=== PATIENT | male | born 1950 | race Caucasian/White ===

== ENCOUNTER → 2018-02-04 | Outpatient (CLI) | payer MEDICARE, MEDICAID | LOC: M RAD 12:34 | DX: R91.8 Other nonspecific abnormal finding of lung field (principal); J44.9 Chronic obstructive pulmonary disease, unspecified | CPT/HCPCS: 71250 ==

== ENCOUNTER → 2018-05-21 | Outpatient (CLI) | payer MEDICARE, MEDICAID | LOC: M RAD 10:15 | DX: J44.9 Chronic obstructive pulmonary disease, unspecified (principal); R91.1 Solitary pulmonary nodule; K42.0 Umbilical hernia with obstruction, without gangrene; R91.8 Other nonspecific abnormal finding of lung field | CPT/HCPCS: 71250 ==

== ENCOUNTER 2020-12-06 13:30 | Inpatient (IN) | payer MEDICARE, MEDICAID ==
[~2020-12-06] VITALS: Ht 172.7 cm; Wt 105.7 kg
[2020-12-06 14:20] LABS: BASO % 0.3 % (0.0-1.0); HEMATOCRIT 52.7 % (42.0-52.0); HEMOGLOBIN 17.7 g/dl (13.5-17.5); LYMPH # 0.7 10^3/uL (1.5-5.0); LYMPH % 7.5 % (24.0-44.0); MEAN CORPUSCULAR HGB CONC 33.6 g/dl (32.0-36.5); MEAN CORPUSCULAR VOLUME 92.3 fl (80.0-96.0); MONO # 0.5 10^3/uL (0.0-0.8); NEUTROPHILS # 8.2 10^3/uL (1.5-8.5); NEUTROPHILS % 86.7 % (36.0-66.0); PLATELET COUNT, AUTOMATED 231 10^3/uL (150-450); RED BLOOD COUNT 5.71 10^6/uL (4.30-6.10); WHITE BLOOD COUNT 9.5 10^3/uL (4.0-10.0)
[2020-12-06 14:29] LABS: INR 1.87; PROTHROMBIN TIME 21.9 SECONDS (12.5-14.3)
[2020-12-06 14:30] LABS: PARTIAL THROMBOPLASTIN TIME 35.4 SECONDS (24.2-38.5)
--- NOTE | 2020-12-06 14:32 | REP ---
INDICATION: abdominal pain. COMPARISON: CT 05/21/2018. TECHNIQUE: Single portable AP view of the chest was performed. FINDINGS: There is a 5 cm mass in the left lower lung. There appear to be underlying interstitial fibrotic changes in the lung bases bilaterally. There is somewhat confluent parenchymal opacity in the right lung base which could represent an area of atelectasis or infiltrate. The heart does not appear to be significantly enlarged. There is calcification of the thoracic aorta. IMPRESSION: There is a 5 cm mass in the lower left lung. There may be some mild atelectasis or infiltrate in the right lung base. <Electronically signed by Ramses Veliz > 12/06/20 [id number]
[2020-12-06 14:47] LABS: ALT/SGPT 29 U/L (12-78); AMYLASE 30 U/L (25-115); BILIRUBIN,DIRECT 0.2 MG/DL (0.0-0.2); BILIRUBIN,TOTAL 0.8 MG/DL (0.2-1.0); BLOOD UREA NITROGEN 19 MG/DL (7-18); CALCIUM LEVEL 9.5 MG/DL (8.8-10.2); CARBON DIOXIDE LEVEL 25 MEQ/L (21-32); CHLORIDE LEVEL 103 MEQ/L (98-107); CK-MB VALUE MASS 1.1 NG/ML (<3.6); CPK CREATINE PHOSPHOKINASE 110 U/L (39-308); CREATININE FOR GFR 0.93 MG/DL (0.70-1.30); GLOMERULAR FILTRATION RATE > 60.0 (>42); GLUCOSE, FASTING 160 MG/DL (70-100); LIPASE 100 U/L (73-393); POTASSIUM SERUM 4.5 MEQ/L (3.5-5.1); SODIUM LEVEL 135 MEQ/L (136-145); TOTAL PROTEIN 7.4 GM/DL (6.4-8.2); TROPONIN I < 0.02 NG/ML (< 0.10)
[2020-12-06] MEDS ORDERED: AMLO1TAB24 PO (15:05)
[2020-12-06] MEDS ORDERED: MORPHINE 2 MG/ML 1ML VIAL (J2270) IV ONE (15:05)
[2020-12-06] MEDS ORDERED: LEVO25TA5 PO (15:05)
[2020-12-06] MEDS ORDERED: LISI10TA22 PO (15:05)
[2020-12-06] MEDS ORDERED: METO1TAB87 PO (15:05)
[2020-12-06] MEDS ORDERED: GABA-283 PO (15:05)
[2020-12-06] MEDS ORDERED: ROPI0.5T3 PO (15:05)
[2020-12-06] MEDS ORDERED: WARF4TAB51 PO (15:05)
[2020-12-06] MEDS ORDERED: ATOR1TAB19 PO (15:05)
[2020-12-06] MEDS ORDERED: MORPHINE 4 MG/ML 1ML VIAL/SYRINGE (J2270) IV ONE ×2 (16:00→18:00)
[2020-12-06] MEDS: GASTROGRAFIN SOLUTION 30ML PO SCH ×2 (16:10→16:53)
[2020-12-06] MEDS ORDERED: ISOVUE-370 76% 100ML VIAL As Ordered ONE (17:16)
--- NOTE | 2020-12-06 18:41 | REPVR ---
PROCEDURE INFORMATION: Exam: CT Chest With Contrast; Diagnostic Exam date and time: 12/06/2020 2:57 PM Age: 70 years old Clinical indication: Other: Eval for mass in lung TECHNIQUE: Imaging protocol: Diagnostic computed tomography of the chest with contrast. Radiation optimization: All CT scans at this facility use at least one of these dose optimization techniques: automated exposure control; mA and/or kV adjustment per patient size (includes targeted exams where dose is matched to clinical indication); or iterative reconstruction. Contrast material: ISOVUE 370; Contrast volume: 100 ml; Contrast route: INTRAVENOUS (IV); COMPARISON: CT Chest without contrast 05/21/2018 10:27 AM FINDINGS: Lungs: There is a calcified granuloma at the left lung base. There is a 5 cm x 3.8 cm oval mass at the left mid lung field which would be consistent with a malignant mass lesion. There is a 4 cm x 2.3 cm nodular area at the posterior right lung base which could be benign or malignant. There is severe changes of COPD with bullous emphysema and scarring throughout the lungs. Pleural spaces: There is no evidence of pneumothorax. Heart: The heart is normal in size and there is no pericardial effusion. Pulmonary arteries: There is opacification of the pulmonary arteries with no evidence of pulmonary embolus. Aorta: There is opacification of the aorta which appears intact. There is calcified atherosclerotic plaque formation along the aorta. Lymph nodes: There are calcified subcarinal and left hilar lymph nodes. Bones/joints: There is a lytic area at the posterior aspect of the right 9th rib which may be the result a nonunited fracture or a focal metastasis. Soft tissues: Right-sided vascular graft/right axilla and subcutaneous thorax. IMPRESSION: 1. Severe changes of COPD, emphysema, and scarring. 2. Possible lytic lesion of the posterior aspect of the right 9th rib. 3. 5 cm x 3.8 cm oval mass at the left mid lung field consistent with a malignant mass. Probable additional mass at the right lung base measuring 4 cm x 2.3 cm. Electronically signed by: Higinio Cha On 12/06/2020 18:41:44 PM
--- NOTE | 2020-12-06 19:17 | REPVR ---
PROCEDURE INFORMATION: Exam: CT Abdomen And Pelvis With Contrast Exam date and time: 12/06/2020 2:57 PM Age: 70 years old Clinical indication: Abdominal pain; Additional info: Gen abd pain TECHNIQUE: Imaging protocol: Computed tomography of the abdomen and pelvis with contrast. Radiation optimization: All CT scans at this facility use at least one of these dose optimization techniques: automated exposure control; mA and/or kV adjustment per patient size (includes targeted exams where dose is matched to clinical indication); or iterative reconstruction. Contrast material: ISOVUE 370; Contrast volume: 100 ml; Contrast route: INTRAVENOUS (IV); COMPARISON: No relevant prior studies available. FINDINGS: Liver: Small cyst left lobe of the liver. There is uniform enhancement throughout the liver. Gallbladder and bile ducts: Normal appearing gallbladder. Pancreas: Normal pancreas. Spleen: Normal spleen. Adrenal glands: Normal adrenal glands. Kidneys and ureters: Normal. No hydronephrosis. Stomach and bowel: There are surgical clips at the cecum. Large anterior abdominal wall hernia to the right of the umbilicus: To the right of the umbilicus is a very large/17 cm x 10 cm by 9 cm anterior right abdominal wall hernia. Within this very large hernia are multiple loops of small bowel and also a crescent of fluid to the right. There are several loops of small bowel that are decompressed in this hernia. However the hernia also contains a loop of small bowel demonstrating severe distension with the lumen measures 3.5 cm filled with fluid and a few bubbles of air. As the loops of small bowel traversed the defect there is severe narrowing and transition consistent with a incarcerated closed loop obstruction. The ileum distal to this hernia is completely decompressed. There are loops of small bowel proximal to this hernia demonstrating moderate distention and air-fluid levels. This severely distended loop of small bowel demonstrates thickening of the wall and surrounding edema/all consistent with ischemic changes from the obstruction. Hernia above the level of the umbilicus in the midline: There is a 10 cm anterior abdominal wall hernia above the level of the umbilicus which contains a mid section of transverse colon. As the colon traverses the anterior wall defect there is severe narrowing/transition zone and this may cause high-grade partial obstruction at this location. The section of herniated transverse colon demonstrates moderate gaseous distension and there is also prominent mesenteric fat in the hernia. Second higher hernia Intraperitoneal space: There is no evidence of pneumoperitoneum. Vasculature: There is opacification of the right graft which extends from the aorta it along the right thorax. This graft supplies a right to left femoral artery graft and all appears opacified. There is opacification of the aorta and right and left renal artery. 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 Lymph nodes: Unremarkable. No enlarged lymph nodes. Urinary bladder: Normal urinary bladder. Reproductive: Normal prostate. Bones/joints: Fracture and lesion of the posterior aspect of the right 9th rib. IMPRESSION: 1. 10 cm anterior abdominal wall hernia above the level of the umbilicus demonstrating a portion of the mid transverse colon and severe narrowing of the colon as it traverses into the hernia/partial obstruction. 2. 17 x 10 x 9 cm abdominal wall hernia to the right of the umbilicus and demonstrating nondistended loops of small bowel and a single loop of small bowel demonstrating severe distension with fluid and edema along the margins very suspicious for ischemic changes. This is all consistent with closed loop obstruction/incarcerated hernia. There is a small amount of free fluid along the right side of this large hernia abutting herniated mesentery and distended small bowel. The ileum distal to this is decompressed all consistent with a transition zone and complete obstruction. Hernia with incarceration and strangulation. Electronically signed by: Higinio Cha On 12/06/2020 19:16:45 PM
[2020-12-06] MEDS ORDERED: LABETALOL 100MG/20ML VIAL IV STA ×2 (19:48→22:43)
--- NOTE | 2020-12-06 19:49 | ECGEPIP ---
[facility] - ED Test Date: 2020-12-06 Pat Name: MIC MCNAMARA Department: Room: - Gender: Male Delivery Stock Clerk: tianna : [id number] Requested By: Mary Bedoya Order Number: [id number] Reading MD: Mary Bedoya Measurements Intervals [place] Rate: 69 P: 104 SD: 144 QRS: 64 QRSD: 76 T: 48 QT: 404 QTc: 432 Interpretive Statements Sinus rhythm with marked sinus arrhythmia Nonspecific ST abnormality Delayed R wave progression No prior ECG for comparison Electronically Signed on 12-06-2020 19:49:17 EDT by Mary Bedoya
[2020-12-06] MEDS ORDERED: HYDR-3713 PO (20:06)
[2020-12-06] MEDS ORDERED: ACETAMINOPHEN TAB 650MG DOSE (2X325MG) PO PRN (20:40)
[2020-12-06] MEDS ORDERED: MAALOX 30 ML SUSP *UDC PO PRN (20:40)
[2020-12-06] MEDS ORDERED: MOM 30ML SUSPENSION UDC PO PRN (20:40)
--- NOTE | 2020-12-06 21:54 | HPEPDOC ---
[facility] Medical History & Physical Date of Admission December 06, 2020 Date of Service: December 06, 2020 History and Physical CHIEF COMPLAINT: abdominal pain, distension HISTORY OF PRESENT ILLNESS: 70-year-old male with a past medical history of COPD on 3 L, per peripheral arterial disease, AAA status post pending,likely aortobifemoral bypass, hypertension, hypercholesterolemia , was large ventral hernias. He presented with sudden onset worsening abdominal pain this afternoon, worse in the right lateral area to the umbilicus with one episode of nonbloody, nonbilious vomiting. Patient denies any blood per rectum, chest pain, shortness of breath, fevers or chills. CT in the ED, showing concern for incarcerated and strangulated hernia, closed loop obstruction suspicion for ischemic bowel changes at the site of large ventral hernia at R lateral umbilical aspect. Superior to umbilicus, second hernia with transverse colon narrowing with partial obstruction Further, CT of the chest showing evidence for COPD, emphysematous changes as well as a 5 cm lung mass in the left mid field as well as at the right lung base measuring 4 cm in diameter, with a possible late lytic lesion of the right ninth rib. Patient noted to be hypertensive in the ER did not take his medication this morning. He is requiring 3 L of his baseline home oxygen to maintain saturation. Patient's hemoglobin is 17.7, without leukocytosis. No significant abnormalities. Lactic acid 2.0. Troponin less than 0.02. Lipase, amylase and liver enzymes are within normal limits. Dr. Mcduffie was consulted from the ER, reviewed CT images does not believe that to be a closed loop obstruction on revision of CT images, recommending conservative management for 24 hours with placement of NG tube. PAST MEDICAL HISTORY: COPD on 3L at home Hx of RLE DVT on warfarin Hypothyroidism RLS PAD s/p stenting AAA s/p stent Aortobifemoral bypass? HTN Hypercholesterolemia SOCIAL HISTORY: Former heavy smoker denies etoh use denies illcit drug use FAMILY HISTORY: reviewed with patient, did not reveal pertinent hx ALLERGIES: Please see below. REVIEW OF SYSTEMS: 10 point ROS completed, relevant findings are noted in HPI. HOME MEDICATIONS: Please see below. PHYSICAL EXAMINATION: VITAL SIGNS: please see below General: lying in bed, c/o abdominal pain, alert and oriented HEENT: PERRLA, EOMI, sclerae clear Neck: supple, normal ROM, no JVD Respiratory: rales in bilateral lung bases, air entry fair, limited by body positioning CVS: RRR, normal S1, S2, no murmurs Abdo: distended. large ventral hernia x 2, one superior to umblicus, one larger R lateral to umbilicu. Firm to palpation. No rigidity, guarding to indicate peritonitis Extremities: no edema MSK: R toe 1-5 amp. Chronic venous stasis changes. Pulses 1+ bilaterally Neuro: no focal neuro deficits, moving all 4 extremities, CN2-12 intact. Strength 5/5 in all 4 extremities. No nystagmus. Psych: calm, cooperative, AAO x 3 LABORATORY DATA: See below. IMAGING: CT abdo pelvis with IV contrast (12/06/20): 1. 10 cm anterior abdominal wall hernia above the level of the umbilicus demonstrating a portion of the mid transverse colon and severe narrowing of the colon as it traverses into the hernia/partial obstruction. 2. 17 x 10 x 9 cm abdominal wall hernia to the right of the umbilicus and demonstrating nondistended loops of small bowel and a single loop of small bowel demonstrating severe distension with fluid and edema along the margins very suspicious for ischemic changes. This is all consistent with closed loop obstruction/incarcerated hernia. There is a small amount of free fluid along the right side of this large hernia abutting herniated mesentery and distended small bowel. The ileum distal to this is decompressed all consistent with a transition zone and complete obstruction. Hernia with incarceration and strangulation. CT chest with IV contrast (12/06/20): 1. Severe changes of COPD, emphysema, and scarring. 2. Possible lytic lesion of the posterior aspect of the right 9th rib. 3. 5 cm x 3.8 cm oval mass at the left mid lung field consistent with a malignant mass. Probable additional mass at the right lung base measuring 4 cm x 2.3 cm. CXR (12/06/20): There is a 5 cm mass in the lower left lung. There may be some mild atelectasis or infiltrate in the right lung base. MICROBIOLOGY: Please see below. ASSESSMENT: 70-year-old male with a past medical history of COPD on 3 L, per pe ripheral arterial disease, AAA status post pending,likely aortobifemoral bypass, hypertension, hypercholesterolemia , was large ventral hernias. He presented with sudden onset worsening abdominal pain this afternoon, worse in the right lateral area to the umbilicus with one episode of nonbloody, nonbilious vomiting. CT imaging showing possibility of a closed loop incarcerated strength. Good hernia to the right lateral aspect of umbilicus with a partially of obstructed transverse colon and a hernia superior to the umbilicus. Patient found to have bilateral pulmonary masses with a lytic lesion on the rib consistent with likely malignancy. . PLAN: Abdominal pain 2/2 bowel obstruction with possible hernia incarceration/strangulation - vitals stable, hypertensive - no leukocytosis or fever. LA 2.0. - CT imaging reviewed as above - Dr. Galicia consulted, does not believe there to be closed loops obstruction with strangulation and ischemia at this time, recommending NGT placement for decompression - pain control with IV morphine - will hold anticoagulation on admission in event of emergent surgery - serial abdo exams - repeat KUB in AM HTN - s/p IV labetalol, monitor - takes amlodipine 5 mg, lisinopril 10 mg, metoprolol 12.5 mg daily Bilateral lung masses with likely mets to bone - CT imaging reviewed as above - patient informed of diagnosis, questions answered in detail - flight engineer helicopter is Dr. Atkins, consider consult for bronchoscopy/biopsy once medically stable PAD/AAA stenting - follows with vascular surgery at [facility] - on warfarin - well perfused distally on exam. Hx of RLE DVT - takes warfarin 2 mg daily - INR 1.87 on admission - will hold AC overnight in event of urgent surgery Hypothyroidism - takes levothyroxine 25 mcg Neuropathy - c/w gapapentin RLS - ropinirole DVT ppx: SCDs, TEDs. Holding chemoppx. CODE STATUS: DNR/DNI. MOLST form signed in ER, witnessed. I answered all questions in detail. kub Dispo: pending clinical improvement Vital Signs Vital Signs Date Time Temp Pulse Resp B/P (MAP) Pulse Ox O2 Delivery O2 Flow Rate FiO2 12/06/20 19:19 20 99 12/06/20 18:00 81 214/98 (136) Room Air 12/06/20 16:10 98.7 3.0 Laboratory Data Labs 24H Laboratory Tests 2 12/06/20 14:04: Immature Granulocyte % (Auto) 0.5, Neutrophils (%) (Auto) 86.7H, Lymphocytes (%) (Auto) 7.5L, Monocytes (%) (Auto) 5.0, Eosinophils (%) (Auto) 0.0, Basophils (%) (Auto) 0.3, Neutrophils # (Auto) 8.2, Lymphocytes # (Auto) 0.7L, Monocytes # (Auto) 0.5, Eosinophils # (Auto) 0.0, Basophils # (Auto) 0.0, Nucleated Red Blood Cells % (auto) 0.0, Prothrombin Time 21.9H, Prothromb Time International Ratio 1.87, Activated Partial Thromboplast Time 35.4, Anion Gap 7L, Glomerular Filtration Rate > 60.0, Lactic Acid Level 2.0, Calcium Level 9.5, Total Bilirubin 0.8, Direct Bilirubin 0.2, Aspartate Amino Transf (AST/SGOT) 18, Alanine Aminotransferase (ALT/SGPT) 29, Alkaline Phosphatase 88, Total Creatine Kinase 110, Creatine Kinase MB 1.1, Creatine Kinase MB Relative Index 1.00, Troponin I < 0.02, Total Protein 7.4, Albumin 4.0, Albumin/Globulin Ratio 1.2, Amylase Level 30, Lipase 100 12/06/20 21:26: CBC/BMP Laboratory Tests 12/06/20 14:04 Microbiology Microbiology 12/06/20 Blood Culture, Received Pending 12/06/20 Blood Culture, Received Pending Home Medications Scheduled Amlodipine Besylate (Amlodipine Besylate) 5 Mg Tablet, 5 MG PO DAILY Atorvastatin Calcium (Atorvastatin Calcium) 10 Mg Tablet, 10 MG PO QPM Gabapentin (Gabapentin) 400 Mg Capsule, 400 MG PO TID Levothyroxine Sodium (Levothyroxine Sodium) 25 Mcg Tablet, 25 MCG PO DAILY Lisinopril (Lisinopril) 10 Mg Tablet, 10 MG PO DAILY Metoprolol Tartrate (Metoprolol Tartrate) 25 Mg Tablet, 12.5 MG PO DAILY Ropinirole HCl (Ropinirole HCl) 0.5 Mg Tablet, 0.5 MG PO DAILY Warfarin Sodium (Warfarin Sodium) 2 Mg Tablet, 2 MG PO QPM Scheduled PRN Hydrocodone/Acetaminophen (Hydrocodone-Acetamin 5-325 mg) 1 Each Tablet, 1 TAB PO Q8H PRN for PAIN Allergies Coded Allergies: NSAIDS (Non-Steroidal Anti-Inflamma (Verified Allergy, Unknown, 12/06/20) A-FIB/CHADSVASC A-FIB History Current/History of A-Fib/PAF?: No Current PO Anticoag Therapy: Yes LOUISE RODRÍGUEZ MD December 06, 2020 21:53
[2020-12-06 22:13] LABS: RSV AMPLIFICATION NEGATIVE (NEGATIVE)
[2020-12-06] MEDS: LR 1,000 ML IV SCH (22:31)
[2020-12-06] MEDS: DOCUSATE SODIUM 100MG CAPSULE PO SCH (22:31)
[2020-12-06] MEDS: amLODIPine 5 MG TAB PO SCH (23:40)
[2020-12-07] VITALS (17 sets, daily range): BP systolic 148–190; BP diastolic 61–99
[2020-12-07] MEDS: LR 1,000 ML IV SCH ×3 (05:53→20:21)
[2020-12-07] MEDS: GABAPENTIN 400MG CAP PO SCH ×3 (08:30→20:22)
[2020-12-07] MEDS: DOCUSATE SODIUM 100MG CAPSULE PO SCH ×2 (08:30→20:22)
[2020-12-07] MEDS: amLODIPine 5 MG TAB PO SCH (08:31)
[2020-12-07] MEDS: LEVOTHYROXINE 25MCG TABLET (0.025MG) PO SCH (08:32)
[2020-12-07 08:39] LABS: HEMATOCRIT 51.3 % (42.0-52.0); HEMOGLOBIN 17.3 g/dl (13.5-17.5); MEAN CORPUSCULAR HEMOGLOBIN 31.1 pg (27.0-33.0); MEAN CORPUSCULAR HGB CONC 33.7 g/dl (32.0-36.5); MEAN CORPUSCULAR VOLUME 92.1 fl (80.0-96.0); PLATELET COUNT, AUTOMATED 219 10^3/uL (150-450); RED BLOOD COUNT 5.57 10^6/uL (4.30-6.10); WHITE BLOOD COUNT 12.5 10^3/uL (4.0-10.0)
[2020-12-07 09:11] LABS: ALBUMIN 3.6 GM/DL (3.2-5.2); ALT/SGPT 28 U/L (12-78); BILIRUBIN,TOTAL 0.7 MG/DL (0.2-1.0); BLOOD UREA NITROGEN 18 MG/DL (7-18); CALCIUM LEVEL 9.5 MG/DL (8.8-10.2); CARBON DIOXIDE LEVEL 28 MEQ/L (21-32); CHLORIDE LEVEL 99 MEQ/L (98-107); CREATININE FOR GFR 0.81 MG/DL (0.70-1.30); GLOMERULAR FILTRATION RATE > 60.0 (>42); GLUCOSE, FASTING 152 MG/DL (70-100); POTASSIUM SERUM 4.5 MEQ/L (3.5-5.1); SODIUM LEVEL 134 MEQ/L (136-145)
[2020-12-07] MEDS: rOPINIRole 0.25 MG TAB(REQUIP) PO SCH (10:22)
[2020-12-07] MEDS: METOPROLOL TART 12.5 MG PER 1/2 TAB PO SCH (10:23)
--- NOTE | 2020-12-07 10:23 | REP ---
INDICATION: obstruction. COMPARISON: None. FINDINGS: KUB shows the intestinal gas pattern to be nonspecific. There are multiple dilated gas-filled small bowel loops with a paucity if not absence of gas in the rectal region. The organ silhouettes insofar as delineated are unremarkable. There is no evidence of free intraperitoneal air. IMPRESSION: Plain film finding is consistent with the CT finding yesterday. All interested libertarian should review the CT report. <Electronically signed by Moisés Aj > 12/07/20 101
--- NOTE | 2020-12-07 13:12 | CR.PDOC ---
General Surgery Consultation Date of Consultation 12/07/20 History and Physical Gen. surgery. Dr. Galicia. HISTORY OF PRESENT ILLNESS: The patient is a 70-year-old male with history of large ventral hernias which he states he has had for the past few years. He states yesterday afternoon he developed worsening abdominal pain with 1 episode of vomiting. Evaluation in the ER included CT indicating SBO with large hernia. General Surgery consulted for further evaluation. The patient is currently resting comfortably in the emergency department on the stretcher. Denies nausea or vomiting. States abdominal pain is improved and controlled currently. Denies any flatus/ bowel movements. NG tube in place. 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 ALLERGIES: Please see below. Social history. Former heavy smoker. HOME MEDICATIONS: Please see below. REVIEW OF SYSTEMS: As noted in HPI otherwise 10 point review systems unremarkable. PHYSICAL EXAMINATION: VITALS SIGNS: Please see below. GENERAL APPEARANCE: Lying on stretcher in the emergency department, currently comfortable, no acute distress.. HEENT: Normocephalic, atraumatic. NG tube in place NECK: Supple, no thyromegaly. LUNGS: Bibasilar rales noted, few expiratory wheezes, decreased breath sounds bilaterally. HEART: Regular rate and rhythm ABDOMEN: Abdomen is distended, healed surgical scar noted, large ventral hernia noted, firm to palpation but currently no discomfort with palpation. No guarding or rebound. No grimacing with palpation. No peritoneal signs. EXTREMITIES: No edema identified. Chronic venous stasis changes LABORATORY DATA: Please see below. IMAGING STUDIES: CT abdomen/pelvis IMPRESSION: 1. 10 cm anterior abdominal wall hernia above the level of the umbilicus demonstrating a portion of the mid transverse colon and severe narrowing of the colon as it traverses into the hernia/partial obstruction. 2. 17 x 10 x 9 cm abdominal wall hernia to the right of the umbilicus and demonstrating nondistended loops of small bowel and a single loop of small bowel demonstrating severe distension with fluid and edema along the margins very suspicious for ischemic changes. This is all consistent with closed loop obstruction/incarcerated hernia. There is a small amount of free fluid along the right side of this large hernia abutting herniated mesentery and distended small bowel. The ileum distal to this is decompressed all consistent with a transition zone and complete obstruction. Hernia with incarceration and strangulation. Electronically signed by: Higinio Cha On 12/06/2020 19:16:45 PM IMPRESSION AND PLAN: Large hernia with SBO. The patient is reviewed and examined as per Dr. Galicia. Imaging reviewed as per Dr. Galicia. The patient is currently resting comfortably in bed. Continue with NPO Continue NG tube LIS to continue with decompression. Continue supportive care with pain control and IV fluids. Continue to closely monitor and continue with supportive care. No urgent plan for surgical intervention at this time. The patient would be high risk for surgical intervention considering multiple medical issues including severe emphysema/COPD, O2 dependent and lung masses. History of DVT. On Coumadin as outpatient, currently on hold. INR 1.87 on admission. Vital Signs Vital Signs Date Time Temp Pulse Resp B/P (MAP) Pulse Ox O2 Delivery O2 Flow Rate FiO2 12/07/20 11:45 61 16 190/92 (124) 96 Nasal Cannula 4.0 12/07/20 08:00 97.9 I&Os I&O- Last 24 Hours up to 6 AM 12/07/20 06:00 Intake Total 1000 ml Output Total 850 ml Balance 150 ml Laboratory Data Labs 24H Laboratory Tests 2 12/06/20 14:04: Immature Granulocyte % (Auto) 0.5, Neutrophils (%) (Auto) 86.7H, Lymphocytes (%) (Auto) 7.5L, Monocytes (%) (Auto) 5.0, Eosinophils (%) (Auto) 0.0, Basophils (%) (Auto) 0.3, Neutrophils # (Auto) 8.2, Lymphocytes # (Auto) 0.7L, Monocytes # (Auto) 0.5, Eosinophils # (Auto) 0.0, Basophils # (Auto) 0.0, Nucleated Red Blood Cells % (auto) 0.0, Prothrombin Time 21.9H, Prothromb Time International Ratio 1.87, Activated Partial Thromboplast Time 35.4, Anion Gap 7L, Glomerular Filtration Rate > 60.0, Lactic Acid Level 2.0, Calcium Level 9.5, Total Bilirubin 0.8, Direct Bilirubin 0.2, Aspartate Amino Transf (AST/SGOT) 18, Alanine Aminotransferase (ALT/SGPT) 29, Alkaline Phosphatase 88, Total Creatine Kinase 110, Creatine Kinase MB 1.1, Creatine Kinase MB Relative Index 1.00, Troponin I < 0.02, Total Protein 7.4, Albumin 4.0, Albumin/Globulin Ratio 1.2, A mylase Level 30, Lipase 100 12/06/20 21:26: Coronavirus (COVID-19)(PCR) NEGATIVE, Influenza Type A (RT-PCR) NEGATIVE, Influenza Type B (RT-PCR) NEGATIVE, Respiratory Syncytial Virus (PCR) NEGATIVE 12/07/20 08:20: Nucleated Red Blood Cells % (auto) 0.0, Anion Gap 7L, Glomerular Filtration Rate > 60.0, Calcium Level 9.5, Total Bilirubin 0.7, Aspartate Amino Transf (AST/SGOT) 16, Alanine Aminotransferase (ALT/SGPT) 28, Alkaline Phosphatase 79, Total Protein 7.0, Albumin 3.6, Albumin/Globulin Ratio 1.1 CBC/BMP Laboratory Tests 12/06/20 14:04 12/07/20 08:20 Microbiology Microbiology 12/06/20 Blood Culture, Received Pending 12/06/20 Blood Culture, Received Pending Home Medications Scheduled Amlodipine Besylate (Amlodipine Besylate) 5 Mg Tablet, 5 MG PO DAILY, (Reported) Atorvastatin Calcium (Atorvastatin Calcium) 10 Mg Tablet, 10 MG PO QPM, (Reported) Gabapentin (Gabapentin) 400 Mg Capsule, 400 MG PO TID, (Reported) Levothyroxine Sodium (Levothyroxine Sodium) 25 Mcg Tablet, 25 MCG PO DAILY, (Reported) Lisinopril (Lisinopril) 10 Mg Tablet, 10 MG PO DAILY, (Reported) Metoprolol Tartrate (Metoprolol Tartrate) 25 Mg Tablet, 12.5 MG PO DAILY, (Reported) Ropinirole HCl (Ropinirole HCl) 0.5 Mg Tablet, 0.5 MG PO DAILY, (Reported) Warfarin Sodium (Warfarin Sodium) 2 Mg Tablet, 2 MG PO QPM, (Reported) Scheduled PRN Hydrocodone/Acetaminophen (Hydrocodone-Acetamin 5-325 mg) 1 Each Tablet, 1 TAB PO Q8H PRN for PAIN, (Reported) Allergies Coded Allergies: NSAIDS (Non-Steroidal Anti-Inflamma (Verified Allergy, Unknown, 12/06/20) Shirlene Lopez December 07, 2020 13:12
[2020-12-07] MEDS ORDERED: hydrALAZINE 20MG/ML 1ML VIAL (J0360 PER 20MG) IV PRN (14:10)
[2020-12-07] MEDS: MORPHINE 2 MG/ML 1ML VIAL (J2270) IV PRN ×3 (14:55→20:22)
[2020-12-07] MEDS: ATORVASTATIN 10 MG TAB PO SCH (17:16)
--- NOTE | 2020-12-07 18:29 | IPNPDOC ---
Date Seen The patient was seen on 12/07/20. Progress Note SUBJECTIVE: BP uncontrolled over evening. No acute complaints on exam, denied abdominal pain. Denies n/v/d, fevers, chills, shortness of breath. OBJECTIVE: PHYSICAL EXAMINATION: VITAL SIGNS: please see below General: lying in bed, NAD HEENT: PERRLA, EOMI, sclerae clear, NG tube in place to IS, NC in place Neck: supple, normal ROM, no JVD Respiratory: rales in bilateral lung bases, air entry fair, limited by body positioning CVS: RRR, normal S1, S2, no murmurs Abdo: distended abdomen, tympanic. large ventral hernia x 2, one superior to umblicus, one larger R lateral to umbilicu. Firm to palpation. No rigidity, guarding. Nontender Extremities: no edema MSK: R toe 1-5 amp. Chronic venous stasis changes. Pulses 1+ bilaterally Neuro: no focal neuro deficits, moving all 4 extremities, CN2-12 intact. Strength 5/5 in all 4 extremities. No nystagmus. Psych: calm, cooperative, AAO x 3 LABORATORY DATA: See below. MICRO: BCx x 2 sets NG IMAGING: KUB 12/07/20: KUB shows the intestinal gas pattern to be nonspecific. There are multiple dilated gas-filled small bowel loops with a paucity if not absence of gas in the rectal region. The organ silhouettes insofar as delineated are unremarkable. There is no evidence of free intraperitoneal air. CT abdo pelvis with IV contrast (12/06/20): 1. 10 cm anterior abdominal wall hernia above the level of the umbilicus demonstrating a portion of the mid transverse colon and severe narrowing of the colon as it traverses into the hernia/partial obstruction. 2. 17 x 10 x 9 cm abdominal wall hernia to the right of the umbilicus and demonstrating nondistended loops of small bowel and a single loop of small bowel demonstrating severe distension with fluid and edema along the margins very suspicious for ischemic changes. This is all consistent with closed loop obstruction/incarcerated hernia. There is a small amount of free fluid along the right side of this large hernia abutting herniated mesentery and distended small bowel. The ileum distal to this is decompressed all consistent with a transition zone and complete obstruction. Hernia with incarceration and strangulation. CT chest with IV contrast (12/06/20): 1. Severe changes of COPD, emphysema, and scarring. 2. Possible lytic lesion of the posterior aspect of the right 9th rib. 3. 5 cm x 3.8 cm oval mass at the left mid lung field consistent with a malignant mass. Probable additional mass at the right lung base measuring 4 cm x 2.3 cm. CXR (12/06/20): There is a 5 cm mass in the lower left lung. There may be some mild atelectasis or infiltrate in the right lung base. MICROBIOLOGY: Please see below. ASSESSMENT: 70-year-old male with a past medical history of COPD on 3 L, peripheral arterial disease, AAA s/p stenting/ aortobifemoral bypass, hypert ension, hypercholesterolemia , hx large ventral hernias admitted for large hernia with SBO, bilateral lung masses. PLAN: Hernia with SBO -Denies passing gas or BM overnight, abdominal pain for me -KUB above from this AM -Abd remains diffusely distended, tympanic but nontender on exam- tender intermittently; however. -NPO, NG to LIS, supportive care with pain meds, IVF -At this time would be high risk for surgery with underlying lung issues (advanced emphysema, b/l lung masses, O2 dependent) so plan is to see how conservative tx and waiting does. -Surgery following closely Bilateral lung masses with likely mets to bone -CT imaging reviewed as above -Patient informed of diagnosis, questions answered in detail by admitting provider -Discussed case with Dr. Atkins, whose office has seen patient him past for other issues. Will consult and see on 12/08/20 to discuss further, as he has not discussed these findings with pulmonary or oncology yet. HTN, uncontrolled -180-190's during the day -Added hydralazine PRN, as patient is NPO to all PO medications from home ( amlodipine 5 mg, lisinopril 10 mg, metoprolol 12.5 mg) PAD/AAA stenting -Follows with vascular surgery at [facility] -On warfarin, which has been held due to possible surgery -On lovenox renally dosed BID Hx of RLE DVT - takes warfarin 2 mg daily - INR 1.87 on admission - Holding warfarin, starting lovenox BID Hx of COLIN -Unknown if uses home CPAP -Per pulm, noncompliant Hypothyroidism - takes levothyroxine 25 mcg Neuropathy -Gapapentin when taking PO RLS - ropinirole when taking PO Obesity -BMI 34, complicates care GI px -PPI DVT ppx -Lovenox BID DISPOSITION: Surgery, pulmonary consulted. Plan is hopefully discharge home when medically improved. VS, I&O, 24H, Fishbone Vital Signs/I&O Vital Signs Date Time Temp Pulse Resp B/P (MAP) Pulse Ox O2 Delivery O2 Flow Rate FiO2 12/07/20 17:23 18 Nasal Cannula 4.0 12/07/20 13:00 96.0 84 149/69 (95) 98 I&O- Last 24 Hours up to 6 AM 12/07/20 06:00 Intake Total 1000 ml Output Total 850 ml Balance 150 ml Laboratory Data 24H LABS Laboratory Tests 2 12/06/20 21:26: Coronavirus (COVID-19)(PCR) NEGATIVE, Influenza Type A (RT-PCR) NEGATIVE, Influenza Type B (RT-PCR) NEGATIVE, Respiratory Syncytial Virus (PCR) NEGATIVE 12/07/20 08:20: Nucleated Red Blood Cells % (auto) 0.0, Anion Gap 7L, Glomerular Filtration Rate > 60.0, Calcium Level 9.5, Total Bilirubin 0.7, Aspartate Amino Transf (AST/SGOT) 16, Alanine Aminotransferase (ALT/SGPT) 28, Alkaline Phosphatase 79, Total Protein 7.0, Albumin 3.6, Albumin/Globulin Ratio 1.1 CBC/BMP Laboratory Tests 12/07/20 08:20 Microbiology Microbiology 12/06/20 Blood Culture - Preliminary, Resulted No growth after 24 hours . All specim... 12/06/20 Blood Culture - Preliminary, Resulted No growth after 24 hours . All specim... Savana Portillo MD December 07, 2020 18:29
[2020-12-07] MEDS: PANTOPRAZOLE 40MG VIAL (C9113 PER 1) IV SCH (20:21)
[2020-12-07] MEDS: ENOXAPARIN 100MG/1ML SYRINGE (J1650 PER 10MG) SC SCH (20:21)
[2020-12-08] VITALS (25 sets, daily range): BP systolic 111–146; BP diastolic 52–75
[2020-12-08] MEDS: MORPHINE 2 MG/ML 1ML VIAL (J2270) IV PRN ×4 (00:38→11:06)
[2020-12-08] MEDS: LR 1,000 ML IV SCH ×2 (02:45→11:06)
[2020-12-08 06:21] LABS: HEMATOCRIT 49.2 % (42.0-52.0); HEMOGLOBIN 16.4 g/dl (13.5-17.5); MEAN CORPUSCULAR HEMOGLOBIN 31.2 pg (27.0-33.0); MEAN CORPUSCULAR HGB CONC 33.3 g/dl (32.0-36.5); MEAN CORPUSCULAR VOLUME 93.7 fl (80.0-96.0); PLATELET COUNT, AUTOMATED 205 10^3/uL (150-450); RED BLOOD COUNT 5.25 10^6/uL (4.30-6.10); WHITE BLOOD COUNT 14.5 10^3/uL (4.0-10.0)
[2020-12-08 06:31] LABS: INR 1.62; PROTHROMBIN TIME 19.6 SECONDS (12.5-14.3)
[2020-12-08 06:47] LABS: ALT/SGPT 21 U/L (12-78); BLOOD UREA NITROGEN 14 MG/DL (7-18); CALCIUM LEVEL 8.8 MG/DL (8.8-10.2); CARBON DIOXIDE LEVEL 27 MEQ/L (21-32); CHLORIDE LEVEL 102 MEQ/L (98-107); CREATININE FOR GFR 0.82 MG/DL (0.70-1.30); GLOMERULAR FILTRATION RATE > 60.0 (>42); GLUCOSE, FASTING 142 MG/DL (70-100); POTASSIUM SERUM 4.3 MEQ/L (3.5-5.1); SODIUM LEVEL 136 MEQ/L (136-145); TOTAL PROTEIN 6.5 GM/DL (6.4-8.2)
--- NOTE | 2020-12-08 08:30 | IPNPDOC ---
Text Note Date of Service The patient was seen on 12/08/20. NOTE Gen. surgery. Dr. Galicia. The patient is a 70-year-old male with history of large ventral hernias admitted 12/07/20 for SBO with large hernia. This morning the patient states he feels about the same as yesterday. NG tube in place. Denies nausea. Denies flatus. Has not had any bowel movements. Abdomen is still distended, still reports tenderness around the area of the large hernia. Afebrile. VSS. 93% 4 L nasal cannula. Currently resting in bed, no acute distress. NG tube in place Bibasilar rales noted, few expiratory wheezes, decreased breath sounds bilaterally. HEART: S1 and S2 Regular rate and rhythm ABDOMEN: Abdomen is still distended, about the same as yesterday in the area of the hernia, there is some decreased distention in the upper abdomen, healed midline surgical scar noted. Large ventral hernia noted, firm to palpation with erythema of the skin overlying the area, tenderness in this area with palpation. No guarding or rebound. EXTREMITIES: No edema. WBC 14.5, slightly increased from 12.5 on admission. NG tube output 1400 mL yesterday. IMPRESSION AND PLAN: Large hernia with SBO. The patient is reviewed and examined as per Dr. Bonner this AM. Continue with NPO Continue NG tube LIS Continue supportive care with pain control and IV fluids. Dr Bonner to review imaging further for any additional recommendations or need for surgical intervention at this time. Will discuss further with the pt after review. The patient would be high risk for surgical intervention considering multiple medical issues including severe emphysema/COPD, O2 dependent and lung masses. History of DVT. On Coumadin as outpatient, currently on hold. INR 1.62 this AM. VS,Fishbone, I+O VS, Fishbone, I+O Laboratory Tests 12/08/20 05:50 Vital Signs Date Time Temp Pulse Resp B/P (MAP) Pulse Ox O2 Delivery O2 Flow Rate FiO2 12/08/20 07:28 97.4 89 18 145/67 (93) 93 Nasal Cannula 4.0 I&O- Last 24 Hours up to 6 AM 12/08/20 06:00 Intake Total 4000 ml Output Total 1400 ml Balance 2600 ml Shirlene Lopez December 08, 2020 08:30 IRASEMA BONNER MD December 29, 2020 04:57
[2020-12-08] MEDS: DOCUSATE SODIUM 100MG CAPSULE PO SCH (08:44)
[2020-12-08] MEDS: GABAPENTIN 400MG CAP PO SCH ×2 (08:44→16:00)
[2020-12-08] MEDS: amLODIPine 5 MG TAB PO SCH (08:45)
[2020-12-08] MEDS: LEVOTHYROXINE 25MCG TABLET (0.025MG) PO SCH (08:45)
[2020-12-08] MEDS: METOPROLOL TART 12.5 MG PER 1/2 TAB PO SCH (08:45)
[2020-12-08] MEDS: ENOXAPARIN 100MG/1ML SYRINGE (J1650 PER 10MG) SC SCH (08:46)
[2020-12-08] MEDS: rOPINIRole 0.25 MG TAB(REQUIP) PO SCH (09:33)
[2020-12-08] MEDS: IPRATROPIUM 0.5MG/ALBUTEROL 2.5MG INH SOL UD 3ML (DUONEB) NEB SCH ×3 (10:59→17:30)
[2020-12-08 11:00] LABS: ABG BASE EXCESS 1.9 (-2.0-2.0); ABG HCO3 25.9 MEQ/L (22.0-26.0); ABG O2 SATURATION 93.4 % (95.0-99.0); ABG PARTIAL PRESSURE CO2 38.4 mmHg (35.0-45.0); ABG PARTIAL PRESSURE O2 63.3 mmHg (75.0-100.0); ABG pH (ARTERIAL) 7.446 UNITS (7.350-7.450)
--- NOTE | 2020-12-08 11:03 | IPN ---
PROGRESS NOTE DATE: 12/08/2020 SUBJECTIVE: I was asked to see Darrius Felton. He is well-known to me from the outpatient setting. In essence, this is a 70-year-old gentleman with longstanding previous tobacco use. He has very significant ongoing emphysema with a diffusion capacity of about 30%, is chronically on oxygen. He does have underlying obstructive lung disease with an FEV1 in and around 1.56 liters, about 53% of predicted. He is generally noncompliant with his inhaler therapy as well as his home oxygen which he has been on for years. He is known to have significantly abnormal CT scan not only from his emphysema but has left lower lobe granuloma. In 2018 had a very significant left hilar abnormality that turned out to be inflammatory as it completely cleared. He is admitted now for an incarcerated ventral hernia and was found to have an approximately 5 cm lung mass in the left, clearly new from his scans from 2018. I have no access to imaging done last year at [facility] that was reportedly done. He is also known to have very significant underlying vascular and cardiac disease. His main complaint currently is related to his ventral hernia, he is having significant pain. I am told he is scheduled for surgical repair later today. MEDICATIONS: His medication list has been reviewed. PHYSICAL EXAMINATION: VITAL SIGNS: T-max of 97.9, blood pressure 120s/140s, heart rate generally in the 80s to 90s, respiratory rate 18 to 20 without accessory muscle use. He remains on 4 liters nasal cannula. His current saturation is 91 to 93%. HEENT: Normocephalic, atraumatic. Nasal cannula oxygen placed as well as a nasogastric tube. Pupils reactive, sclera clear. Trachea is in the midline. Membranes are moist. CHEST: Markedly diminished but symmetric expansion, diffusely hyperresonant to percussion. There are some faint dependent crackles that improve with deep inspiration but no other focal adventitious breath sounds are identified. His right axillary bifemoral graft is palpable in the right mid axillary line. CARDIAC: Distant but generally regular. Peripheral pulses are diminished but palpable. No obvious edema. ABDOMEN: Very large ventral hernia. Bowel sounds are hypoactive. EXTREMITIES: No cyanosis or clubbing. NEUROLOGIC: He is awake, alert and appropriate. PSYCH: Normal mood and affect. LABORATORY DATA: Most recent laboratories shows a white blood cell count of 14.5, hemoglobin 16.4, platelet count 205,000. Sodium 136, potassium 4.3, chloride 102, CO2 27, BUN 14, creatinine 0.82. No blood gas but will obtain one as a baseline for his surgery today. CT scans have all been reviewed and I cannot at all disagree with the dictated report regarding an approximately 5 cm left upper lobe mass, clearly new from his last scan in 2018. IMPRESSION: 1. Chronic hypoxemic respiratory failure. 2. Emphysema as the basis for the above. 3. At least moderate obstructive lung disease. 4. Abnormal CT scan with a sizable left upper lobe mass likely primary bronchogenic carcinoma. 5. Profound vascular disease. 6. Coronary artery disease. RECOMMENDATIONS: A very lengthy discussion was had with the patient concerning the above. He is concerned about his risks for operative repair of his hernia. Certainly, he does have advanced obstructive lung disease but his airway function should not preclude his postop management. Certainly, his oxygenation status presents an issue but he has not had significant difficulties with wheezing, on and off steroids or frequent exacerbations of his obstructive lung disease. She he opt for surgical intervention, certainly we will do our best to extubate him as soon as possible. The other glaring issue is his lung mass. Certainly, this is going to prove to be bronchogenic carcinoma. He is certainly not an operative candidate for resection and I doubt chemotherapy would be able to play a role but certainly we can consider evaluation for radiation therapy. I did discuss with him the risks for pneumothorax regarding needle biopsy but certainly getting his incarcerated dealt with first takes precedence. He is agreement with that. For now, we will continue his current respiratory medications while he is here in the hospital. Further recommendations will be made in the progress records as new information becomes available.
[2020-12-08] MEDS ORDERED: LIDOCAINE 1% SDV 30ML VIAL As Ordered ONE (14:13)
[2020-12-08] MEDS ORDERED: BUPIVACAINE HCL 0.25% 30ML VIAL As Ordered ONE (14:13)
--- NOTE | 2020-12-08 14:48 | IPNPDOC ---
Date Seen The patient was seen on 12/08/20. Progress Note SUBJECTIVE: Redness of skin today and increased pain over right side of hernia. Discussion had with patient about need for surgical intervention, remains high risk. Pulmonary involved and has evaluated. D/w Dr. Mike. Possible OR today. Currently denies n/v/d, fevers, chills, shortness of breath. OBJECTIVE: PHYSICAL EXAMINATION: VITAL SIGNS: please see below General: lying in bed, NAD HEENT: PERRLA, EOMI, sclerae clear, NG tube in place to IS, NC in place Neck: supple, normal ROM, no JVD Respiratory: crackles in bilateral lung bases, air entry fair, limited by body positioning CVS: RRR, normal S1, S2, no murmurs Abdo: distended abdomen, tympanic. large ventral hernia x 2, one superior to umblicus, one larger R lateral to umbilicus. Firm to palpation. No rigidity, guarding. redness around entire ventral hernia appeared since admission. Tenderness to right side of ventral hernia with palpation Extremities: no edema MSK: R toe 1-5 amp. Chronic venous stasis changes. Pulses 1+ bilaterally Neuro: no focal neuro deficits, moving all 4 extremities, CN2-12 intact. Strength 5/5 in all 4 extremities. No nystagmus. Psych: calm, cooperative, AAO x 3 LABORATORY DATA: See below. MICRO: BCx x 2 sets NG IMAGING: KUB 12/07/20: KUB shows the intestinal gas pattern to be nonspecific. There are multiple dilated gas-filled small bowel loops with a paucity if not absence of gas in the rectal region. The organ silhouettes insofar as delineated are unremarkable. There is no evidence of free intraperitoneal air. CT abd/ pelvis with IV contrast (12/06/20): 1. 10 cm anterior abdominal wall hernia above the level of the umbilicus demonstrating a portion of the mid transverse colon and severe narrowing of the colon as it traverses into the hernia/partial obstruction. 2. 17 x 10 x 9 cm abdominal wall hernia to the right of the umbilicus and demonstrating nondistended loops of small bowel and a single loop of small bowel demonstrating severe distension with fluid and edema along the margins very suspicious for ischemic changes. This is all consistent with closed loop obstruction/incarcerated hernia. There is a small amount of free fluid along the right side of this large hernia abutting herniated mesentery and distended small bowel. The ileum distal to this is decompressed all consistent with a transition zone and complete obstruction. Hernia with incarceration and strangulation. CT chest with IV contrast (12/06/20): 1. Severe changes of COPD, emphysema, and scarring. 2. Possible lytic lesion of the posterior aspect of the right 9th rib. 3. 5 cm x 3.8 cm oval mass at the left mid lung field consistent with a malignant mass. Probable additional mass at the right lung base measuring 4 cm x 2.3 cm. CXR (12/06/20): There is a 5 cm mass in the lower left lung. There may be some mild atelectasis or infiltrate in the right lung base. ASSESSMENT: 70-year-old male with a past medical history of COPD on 3 L, peripheral arterial disease, AAA s/p stenting/ aortobifemoral bypass, hypertension, hypercholesterolemia , hx large ventral hernias admitted for large hernia with SBO, bilateral lung masses. PLAN: Strangulated abdominal hernia with SBO -WBC incr to 14.5, increased redness around ventral hernia, incr ventral hernia pain -Denies passing gas or BM overnight, 1400 mL out of NG tube overnight -Abd remains diffusely distended -D/w surgery (Dr. Mike) and pulmonary (Dr. Atkins). Per surgery, will need surgical intervention but remains high risk for surgery with underlying lung issues (advanced emphysema, b/l lung masses, O2 dependent). -NPO, NG to LIS, supportive care with pain meds, IVF Bilateral lung masses with likely mets to bone, likely bronchogenic carcinoma -Hx of smoking -CT imaging reviewed as above -Pulmonary was consulted and reviewed results with patient in great detail today. Please refer to his note. -will need additional f/u as o/p, possibly radiation, bx. HTN -better controlled today -C/w hydralazine PRN, as patient is NPO to all PO medications from home ( amlodipine 5 mg, lisinopril 10 mg, metoprolol 12.5 mg) PAD/AAA stenting -Follows with vascular surgery at [facility] -Warfarin has been held due to possible surgery -Holding lovenox renally dosed BID Hx of RLE DVT - takes warfarin 2 mg daily - INR 1.6 today - Holding warfarin, lovenox BID Hx of COLIN -Unknown if uses home CPAP -Per pulm, noncompliant Hypothyroidism - takes levothyroxine 25 mcg Neuropathy -Gapapentin when taking PO RLS - ropinirole when taking PO Obesity -BMI 34, complicates care GI px -PPI DVT ppx -Lovenox BID - held for surgery . SCD, teds DISPOSITION: Surgery, pulmonary consulted. OR likely today. VS, I&O, 24H, Fishbone Vital Signs/I&O Vital Signs Date Time Temp Pulse Resp B/P (MAP) Pulse Ox O2 Delivery O2 Flow Rate FiO2 12/08/20 12:00 97.3 74 18 125/58 (80) 92 Nasal Cannula 4.0 I&O- Last 24 Hours up to 6 AM 12/08/20 06:00 Intake Total 4000 ml Output Total 1400 ml Balance 2600 ml Laboratory Data 24H LABS Laboratory Tests 2 12/08/20 05:50: Nucleated Red Blood Cells % (auto) 0.0, Prothrombin Time 19.6H, Prothromb Time International Ratio 1.62, Anion Gap 7L, Glomerular Filtration Rate > 60.0, Calcium Level 8.8, Total Bilirubin 1.0, Aspartate Amino Transf (AST/SGOT) 19, Alanine Aminotransferase (ALT/SGPT) 21, Alkaline Phosphatase 69, Total Protein 6.5, Albumin 3.0L, Albumin/Globulin Ratio 0.9 12/08/20 08:23: Lactic Acid Level 1.5 12/08/20 10:49: Blood Gas Bicarbonate Standard 26.0, Arterial Blood pH 7.446, Arterial Blood Partial Pressure CO2 38.4, Arterial Blood Partial Pressure O2 63.3L, Arterial Blood Total CO2 27.0, Arterial Blood HCO3 25.9, Arterial Blood Base Excess 1.9, Arterial Blood Oxygen Saturation 93.4L CBC/BMP Laboratory Tests 12/08/20 05:50 Microbiology Microbiology 12/06/20 Blood Culture - Preliminary, Resulted No Growth after 48 hours. All Specime... 12/06/20 Blood Culture - Preliminary, Resulted No Growth after 48 hours. All Specime... Savana Portillo MD December 08, 2020 14:48
[2020-12-08] MEDS ORDERED: ZOSYN 3.375GM VIAL (J2543) As Ordered ONE (17:34)
[2020-12-08] MEDS ORDERED: ALBUTEROL SULFATE 2.5 MG/0.5 ML INH NEB SOLN INH SCH (17:35)
[2020-12-08] MEDS ORDERED: BUPIVACAINE LIPOSOME/PF 1.3% 20ML VIAL (13.3MG/ML)(EXPAREL)(C9290 PER1MG) As Ordered ONE (18:07)
[2020-12-08] MEDS ORDERED: LIDOCAINE 2% 100MG/5ML SDV (FOR ANES.) As Ordered ONE (20:34)
[2020-12-08] MEDS ORDERED: HYDROmorphone HCL 2 MG/ML 1ML VIAL (J1170) As Ordered ONE (20:34)
[2020-12-08] MEDS ORDERED: propofoL 200 MG/20 ML VIAL As Ordered ONE (20:34)
[2020-12-08] MEDS ORDERED: fentaNYL 100 MCG/2 ML INJECTION (J3010) As Ordered ONE (20:34)
[2020-12-08] MEDS ORDERED: PHENYLephrine 500MCG 5ML (100MCG/ML) SYRINGE As Ordered ONE (20:34)
[2020-12-08] MEDS ORDERED: CALCIUM CHLORIDE 10% 1 GM/10 ML SYR As Ordered ONE (20:34)
[2020-12-08] MEDS ORDERED: ROCURONIUM BROMIDE 50 MG/5 ML VIAL As Ordered ONE (20:34)
[2020-12-08] MEDS ORDERED: ACETAMINOPHEN 1000MG 100ML IV BTL (OFIRMEV) (J0131 PER 10MG) As Ordered ONE (20:34)
[2020-12-08] MEDS ORDERED: SUCCINYLCHOLINE 100 MG/5 ML SYRINGE (J0330) As Ordered ONE (20:34)
[2020-12-08] MEDS ORDERED: dexameTHASONE 4 MG/ML 1ML VIAL (J1100 PER 1MG) As Ordered ONE (20:34)
[2020-12-08] MEDS ORDERED: SUGAMMADEX SODIUM 500 MG/5 ML VIAL (BRIDION) As Ordered ONE (20:34)
[2020-12-08] MEDS ORDERED: MIDAZOLAM INJ 2MG/2ML VIAL (J2250 PER 1MG) As Ordered ONE (20:34)
[2020-12-08] MEDS ORDERED: ONDANSETRON 4MG/2ML VIAL As Ordered ONE (20:34)
[2020-12-08] MEDS ORDERED: MORPHINE 1MG/ML IN 0.9% NACL 100ML IV BAG IV PRN (20:40)
[2020-12-08] MEDS ORDERED: diphenhydrAMINE 50MG/ML VIAL (J1200) IV PRN (20:40)
[2020-12-08] MEDS ORDERED: NALOXONE INJ 0.4MG/1ML VIAL (J2310 PER 1MG) IV PRN (20:40)
[2020-12-08] MEDS ORDERED: ONDANSETRON 4MG/2ML VIAL IV PRN (20:40)
[2020-12-08] MEDS ORDERED: EPIDURAL/PCA KEYS XX PRN (20:40)
[2020-12-08] MEDS ORDERED: NS 1,000 ML IV SCH (20:40)
[2020-12-09] VITALS (21 sets, daily range): BP systolic 98–133; BP diastolic 50–69; O2SAT 87–96
[2020-12-09] MEDS: PANTOPRAZOLE 40MG VIAL (C9113 PER 1) IV SCH ×2 (01:12→21:43)
[2020-12-09] MEDS: LR 1,000 ML IV SCH ×4 (01:12→17:41)
[2020-12-09] MEDS: PIPERACILLIN/TAZOBACTAM SOD 3.375 GM in D5W MINI-BAG PLUS 50 ML IV SCH ×4 (01:12→17:40)
[2020-12-09] MEDS: ATORVASTATIN 10 MG TAB PO SCH ×2 (01:13→17:29)
[2020-12-09] MEDS: DOCUSATE SODIUM 100MG CAPSULE PO SCH ×3 (01:13→21:43)
[2020-12-09] MEDS: GABAPENTIN 400MG CAP PO SCH ×4 (01:13→21:43)
[2020-12-09] MEDS: IPRATROPIUM 0.5MG/ALBUTEROL 2.5MG INH SOL UD 3ML (DUONEB) NEB SCH ×7 (04:19→23:59)
[2020-12-09 04:53] LABS: HEMATOCRIT 41.1 % (42.0-52.0); HEMOGLOBIN 13.3 g/dl (13.5-17.5); MEAN CORPUSCULAR HGB CONC 32.4 g/dl (32.0-36.5); MEAN CORPUSCULAR VOLUME 95.8 fl (80.0-96.0); PLATELET COUNT, AUTOMATED 180 10^3/uL (150-450); RED BLOOD COUNT 4.29 10^6/uL (4.30-6.10); WHITE BLOOD COUNT 11.6 10^3/uL (4.0-10.0)
[2020-12-09 05:16] LABS: ALBUMIN 2.2 GM/DL (3.2-5.2); ALT/SGPT 17 U/L (12-78); BILIRUBIN,TOTAL 2.6 MG/DL (0.2-1.0); BLOOD UREA NITROGEN 18 MG/DL (7-18); CALCIUM LEVEL 8.3 MG/DL (8.8-10.2); CARBON DIOXIDE LEVEL 28 MEQ/L (21-32); CHLORIDE LEVEL 105 MEQ/L (98-107); CREATININE FOR GFR 0.97 MG/DL (0.70-1.30); GLOMERULAR FILTRATION RATE > 60.0 (>42); GLUCOSE, FASTING 131 MG/DL (70-100); POTASSIUM SERUM 4.6 MEQ/L (3.5-5.1); SODIUM LEVEL 138 MEQ/L (136-145)
[2020-12-09 07:57] LABS: BILIRUBIN,DIRECT 1.2 MG/DL (0.0-0.2)
--- NOTE | 2020-12-09 08:35 | ROOPDOC ---
[facility] Report Of Operation Report of Operation DATE OF PROCEDURE: 12/08/20 PREPROCEDURE DIAGNOSES: strangulated small bowel, multiple incisional hernia. POSTPROCEDURE DIAGNOSES: Strangulated loop of small bowel (30 cms), multiple midline incisional hernia. PROCEDURE: Exploratory Laparotomy, Lysis of adhesions, small bowel resection, Repair of midline incisional hernia (primary repair with [place] using Phasix ST mesh). SURGEON: Leonel Mike MD BUILD TECHNICIAN: Kev Mckeon MD ANESTHESIA: General Endotracheal Anesthesia. ESTIMATED BLOOD LOSS: Approximately 100 mL. COMPLICATIONS: none. REMARKS: 70 M with serious comorbidities including O2 dependent COPD, on coumadin, has a strangulated loop of bowel passing through a midline incisional hernia. PROCEDURE NOTE: ischemic small bowel, no perforation, hemorrhagic fluid in the sac. multiple saccular hernia sacs and defect. DESCRIPTION OF PROCEDURE: Patient is receiving Zosyn 3.375 g IV on scheduled doses. He was brought to the operating room, placed supine table. Bilateral sequential compression devices placed on both lower extremities were DVT prophylaxis. Gen. endotracheal anesthesia was established. He already has a nasogastric tube in place. A Uribe catheter was placed with concentrated urine noted. His abdomen then widely prepped and draped in the usual sterile fashion.We paused for a surgical timeout using both pre-incision safety checklist to verify correct patient, procedure site and additional clinical information prior to beginning the procedure This was 25 x 35 cm in size. Unfortunately this is also the He has a moderate-sized bulging around the lower abdomen with erythema consistent with most likely is strangulation this is roughly about 10 cm transversely. The skin was opened up and we immediately entered the hernia sac. The incarcerated loop of bowel appears purplish, clearly is ischemic. There were no perforation noted. There is hemorrhagic fluid within the sac. I then proceeded by enlarging the neck of the hernia to release the whole we pulled out the loops of bowel and roughly about 30 cm of the small bowel is clearly ischemic there is definite transition lines between healthy and ischemic bowel. The distal portion was decompressed, the proximal portion is distended. We chose the proximal and distal transection points. A small mesenteric defect was created and the bowels were divided with a 75 mm stapler with a blue load. The mesentery was divided with the LigaSure device and the specimen was passed off. The end of the bowels was then arrange an antiperistaltic manner. Stay sutures of 30 cells were placed to align the bowel and enterotomies were placed on both sides. A [id number] antiperistaltic anastomosis was then created using a 75 mm stapler with a blue load. We closed our enterotomy with a TX 60 stapler with a green load. The mesenteric defect was then closed with a running suture of 2-0 Vicryl. There is a small amount of hematoma on one the floor of the mesentery but was not expanding. This was placed back into the abdomen and reevaluated the hernia itself. He is a very thin abdominal wall and we released the subcutaneous tissue to the anterior fascia. We were not able to clear the underside of the abdominal wall as there are multiple adhesions of mostly omentum and what feels like bowel also in the upper portion of the hernia defect thus we have to enlarge our incision to incorporate this with our closure. Several more hernia defects were encountered and incarcerated loops of omentum and small bowel was encountered. We continued dissection and continued to free up the underlying omentum on the underside of the fascia. There is a bigger hernia up higher at the epigastric area which we left in place. We also extended the incision inferiorly. Once we were finished with the dissection the incision extends from about 3 cm above the symphysis pubis to about 8 cm above the umbilicus. We co ntinued to create a subcutaneous flap laterally to be able to close the fascial defect primarily. This extends to roughly about between 7-8 cm. The fascia was then closed with a running suture of #1 strata fix. We overlapped the suture to gain strength. Were able to close the defect that this has some tension on it as expected. We irrigated subcutaneous tissue. I chose a pahsix mesh. Unfortunately this was also the composite type mesh but this is her only mesh that is available aside from Vicryl mesh. I placed the rough side of the mesh on top of the fascia with the smooth side in the subcutaneous tissue. I trimmed this to appropriate size and roughly a got to about 25 x 15 cm. I then secured this to the anterior fascia with 0 PDS laid flat on the abdominal wall as well as to reinforce the midline closure. We then used some secure straps to affix this to the abdominal wall. 219 [place] drains were then threaded through the left and right flaps into the subcutaneous tissue. The skin was then closed with timo. I placed a Prevena vac on top of the incision at the midline hopefully to hold the incsiion closed to heal enough. Patient did well and was hemodynamically stable. We were able to wean him off the ventilator and was successfully extubated. He was brought to the recovery room extubated, hemodynamically stable. LEONEL MIKE MD December 09, 2020 08:35
[2020-12-09] MEDS: METOPROLOL TART 12.5 MG PER 1/2 TAB PO SCH (09:33)
[2020-12-09] MEDS: amLODIPine 5 MG TAB PO SCH (09:34)
[2020-12-09] MEDS: rOPINIRole 0.25 MG TAB(REQUIP) PO SCH (09:34)
[2020-12-09] MEDS: LEVOTHYROXINE 25MCG TABLET (0.025MG) PO SCH (09:34)
--- NOTE | 2020-12-09 10:21 | IPN ---
PROGRESS NOTE DATE: 12/09/2020 SUBJECTIVE: I attended Darrius Felton here in the intensive care unit. The patient has been examined, chart reviewed, and I spoke at length with the nurse at the bedside. He is now postop day one from bowel resection and repair of a large ventral hernia. OBJECTIVE: VITAL SIGNS: T-max overnight 99.0, heart rate 80 to 100 with a sinus mechanism, blood pressure 100 to 130s. Respiratory rate generally 18 to 24 without accessory muscle. INTAKE AND OUTPUT: [id number] recorded as 4000 mL in and 1045 mL out. GENERAL: On exam, he is awake, alert, and appropriate. He has nasal cannula oxygen in place, as well as an NG tube draining bilious fluid. He is quite comfortable and conversant. HEENT: Pupils react. Sclerae clear. Trachea is in the midline. CHEST: Shows diminished, but symmetrical expansion. Tactile fremitus diminished, but palpable. No focal wheeze, rhonchus, crackles, or rubs. CARDIAC: Distant, generally regular. Peripheral pulses markedly diminished. No significant edema. ABDOMEN: Shows surgical dressings in place. EXTREMITIES: No cyanosis or clubbing. NEUROLOGIC: He is awake, alert, and appropriate. PSYCHIATRIC: Normal mood and affect. LABORATORY DATA: Most recent white blood cell count 11.6, hemoglobin 13.3, platelets 180,000 and no differential. Sodium 138, K 4.6, chloride 105, CO2 of 28, BUN 18, creatinine 0.97. IMPRESSION: 1. Emphysema. 2. Chronic obstructive lung disease. 3. Left upper lobe mass. 4. Severe peripheral vascular disease. 5. Coronary artery disease status post stenting. RECOMMENDATIONS: A long discussion was had with him concerning his current status. He did surprisingly well postop from his abdominal procedure. This is quite gratifying. I again discussed with him the situation regarding his lung mass, which I believe is bronchogenic carcinoma. Although he did reasonably well with the abdominal procedure, I do not believe he would tolerate a significant lung resection; especially in view of his baseline hypoxemia. I have spoken with Dr. Modi from radiation oncology. He will evaluate him today. If it is absolute that we need pathology, then we can consider CT guided needle biopsy while he is here. I believe in view of his overall status, empiric treatment would be most reasonable, and Dr. Modi will discuss this with the patient. In the interim, we will continue his current regimen. We will increase him to out of bed as able. He is able to be moved out of the intensive care unit to progressive care today. Further recommendations will be made in the progress record as new information becomes available.
--- NOTE | 2020-12-09 12:04 | IPNPDOC ---
Text Note Date of Service The patient was seen on 12/09/20. NOTE Patient seen and examined this morning in the ICU. I brought him to the OR victorino rgently last evening for strangulated small bowel in his midline incisional hernia. He had bowel resection and repair of his hernia. He was successfully extubated and was brought to the ICU for close monitoring given his baseline COPD and other comorbidities. He did well overnight. He has been hemodynamically stable. Oxygen levels are acceptable on his baseline 3 L of nasal cannula. He reports he does not have much significant discomfort and actually did not use his morphine REMEDIATION CONSULTANT. He reports his a good sleep. He had good urine output. Vital signs on EMR were reviewed. On examination he looks comfortable. He is breathing normally. He is awake alert and oriented. He is back to his baseline oxygen requirements. No jugular venous distention Lung sounds are clear to auscultation bilaterally. No wheezing appreciated Mildly tachycardic, regular rhythm Abdomen is round, soft, moderately distended, tympanitic, quiet. Prevena vac is working with good suction. Bilateral subcutaneous drains are serosanguineous, nonbloody Moderate lower extremity edema, mild anasarca Impression and plan Postop day 1 after exploratory laparotomy, small bowel resection and repair of incisional hernia Phasix mesh was used. Explained to the patient that this is not a permanent mesh and is expected to slowly dissolve and probably will loose strands in about 12 months and totally disappear at 18 months. I expect his hernia will return He is doing well. He can be transferred to PCU. Continue with IV antibiotics. We will keep him on nasogastric tube suction to continue bowel decompression. Await signs of return of bowel function. We will get physical therapy and occupational therapy to work with him Macho HURTADO, I+O VSMacho, I+O Laboratory Tests 12/09/20 04:19 Vital Signs Date Time Temp Pulse Resp B/P (MAP) Pulse Ox O2 Delivery O2 Flow Rate FiO2 12/09/20 09:33 101 124/59 12/09/20 08:00 3.0 12/09/20 06:00 18 93 Nasal Cannula 12/09/20 04:00 99.0 I&O- Last 24 Hours up to 6 AM 12/09/20 06:00 Intake Total 3050 ml Output Total 1250 ml Balance 1800 ml IRASEMA BONNER MD December 09, 2020 12:04
[2020-12-09] MEDS ORDERED: SODIUM CHLORIDE NASAL 0.65% SPRAY BTL (OCEAN) PRN (13:45)
--- NOTE | 2020-12-09 15:56 | IPNPDOC ---
Date Seen The patient was seen on 12/09/20. Progress Note SUBJECTIVE: POD 1 bowel resection and repair of hernia 2/2 to strangulated small bowel. Extubated sucessfully post-operatively. Pain stable, using little on VETERINARY PHARMACOLOGIST pump. Wound vac and TERRENCE drains in place. Denies incr shortness of breath, chest pain, n/v/d. OBJECTIVE: PHYSICAL EXAMINATION: VITAL SIGNS: please see below General: lying in bed, NAD HEENT: PERRLA, EOMI, sclerae clear, NG tube in place to IS, NC in place Neck: supple, normal ROM, no JVD Respiratory: crackles in bilateral lung bases, air entry fair, limited by body positioning CVS: RRR, normal S1, S2, no murmurs Abdo: large vertical abd wound, wound vac in place, 2 TERRENCE drains secured with small amount of red serosanguinous fluid. BS hypoactive, mild tenderness to palpation of right abd, no rigidity, guarding. Extremities: no edema, cyanosis or clubbing MSK: R toe 1-5 amp. Chronic venous stasis changes. Pulses 1+ bilaterally Neuro: no focal neuro deficits, moving all 4 extremities, CN2-12 intact. Strength 5/5 in all 4 extremities. No nystagmus. Psych: calm, cooperative, AAO x 3 LABORATORY DATA: See below. MICRO: BCx x 2 sets NG IMAGING: KUB 12/07/20: KUB shows the intestinal gas pattern to be nonspecific. There are multiple dilated gas-filled small bowel loops with a paucity if not absence of gas in the rectal region. The organ silhouettes insofar as delineated are unremarkable. There is no evidence of free intraperitoneal air. CT abd/ pelvis with IV contrast (12/06/20): 1. 10 cm anterior abdominal wall hernia above the level of the umbilicus demonstrating a portion of the mid transverse colon and severe narrowing of the colon as it traverses into the hernia/partial obstruction. 2. 17 x 10 x 9 cm abdominal wall hernia to the right of the umbilicus and demonstrating nondistended loops of small bowel and a single loop of small bowel demonstrating severe distension with fluid and edema along the margins very suspicious for ischemic changes. This is all consistent with closed loop obstruction/incarcerated hernia. There is a small amount of free fluid along the right side of this large hernia abutting herniated mesentery and distended small bowel. The ileum distal to this is decompressed all consistent with a transition zone and complete obstruction. Hernia with incarceration and strangulation. CT chest with IV contrast (12/06/20): 1. Severe changes of COPD, emphysema, and scarring. 2. Possible lytic lesion of the posterior aspect of the right 9th rib. 3. 5 cm x 3.8 cm oval mass at the left mid lung field consistent with a malignant mass. Probable additional mass at the right lung base measuring 4 cm x 2.3 cm. CXR (12/06/20): There is a 5 cm mass in the lower left lung. There may be some mild atelectasis or infiltrate in the right lung base. ASSESSMENT: 70-year-old male with a past medical history of COPD on 3 L, peripheral arterial disease, AAA s/p stenting/ aortobifemoral bypass, hypertension, hypercholesterolemia , hx large ventral hernias admitted for lar ge hernia with SBO, bilateral lung masses. PLAN: Strangulated abdominal hernia with SBO -POD 1 bowel resection and repair of hernia 2/2 to strangulated small bowel. -WBC 11.6, improved pain, now has wound vac in place. Not passing flatus or had BM -Decreased NG tube o/p -D/w surgery (Dr. Mike) : c/w current treatment -NPO, NG to LIS, supportive care with pain meds, zosyn, IVF Bilateral lung masses with likely mets to bone, likely bronchogenic carcinoma -Hx of smoking -CT imaging reviewed as above -Pulmonary was consulted and reviewed results with patient in great detail today. Please refer to his note. -Pulmonary consulted radiation oncology, Dr. Modi who will see patient inpatie nt, f/u recommendations HTN -C/w hydralazine PRN, as patient is NPO to all PO medications from home ( amlodipine 5 mg, lisinopril 10 mg, metoprolol 12.5 mg) PAD/AAA stenting -Follows with vascular surgery at [facility] -Warfarin has been held due to possible surgery -Holding lovenox renally dosed BID Hx of RLE DVT - takes warfarin 2 mg daily - INR 1.6 today - Holding warfarin, lovenox BID Hx of COLIN -Unknown if uses home CPAP -Per pulm, noncompliant Hypothyroidism - takes levothyroxine 25 mcg Neuropathy -Gapapentin when taking PO RLS - ropinirole when taking PO Obesity -BMI 34, complicates care GI px -PPI DVT ppx -Lovenox BID - held for surgery but restart JOSE ALFREDO . SCD, teds DISPOSITION: Surgery, rad/onc and pulmonary consulted/following. PT/OT. VS, I&O, 24H, Fishbone Vital Signs/I&O Vital Signs Date Time Temp Pulse Resp B/P (MAP) Pulse Ox O2 Delivery O2 Flow Rate FiO2 12/09/20 12:23 97.4 77 18 100/54 (69) 93 Nasal Cannula 3.0 I&O- Last 24 Hours up to 6 AM 12/09/20 05:59 Intake Total 2800 ml Output Total 1150 ml Balance 1650 ml Laboratory Data 24H LABS Laboratory Tests 2 12/09/20 04:19: Nucleated Red Blood Cells % (auto) 0.0, Anion Gap 5L, Glomerular Filtration Rate > 60.0, Calcium Level 8.3L, Total Bilirubin 2.6#H, Direct Bilirubin 1.2H, Aspartate Amino Transf (AST/SGOT) 17, Alanine Aminotransferase (ALT/SGPT) 17, Alkaline Phosphatase 54, Total Protein 5.0#L, Albumin 2.2#L, Albumin/Globulin Ratio 0.8 CBC/BMP Laboratory Tests 12/09/20 04:19 Microbiology Microbiology 12/06/20 Blood Culture - Preliminary, Resulted No Growth after 72 hours. All specime... 12/06/20 Blood Culture - Preliminary, Resulted No Growth after 72 hours. All specime... Savana Portillo MD December 09, 2020 15:56
[2020-12-10] VITALS (23 sets, daily range): BP systolic 118–130; BP diastolic 58–68; O2SAT 88–95
[2020-12-10] MEDS: PIPERACILLIN/TAZOBACTAM SOD 3.375 GM in D5W MINI-BAG PLUS 50 ML IV SCH ×5 (00:03→23:58)
[2020-12-10] MEDS: LR 1,000 ML IV SCH ×2 (02:52→12:56)
[2020-12-10] MEDS: IPRATROPIUM 0.5MG/ALBUTEROL 2.5MG INH SOL UD 3ML (DUONEB) NEB SCH ×6 (03:43→23:59)
[2020-12-10 05:22] LABS: HEMATOCRIT 38.1 % (42.0-52.0); HEMOGLOBIN 12.1 g/dl (13.5-17.5); MEAN CORPUSCULAR HEMOGLOBIN 30.9 pg (27.0-33.0); MEAN CORPUSCULAR HGB CONC 31.8 g/dl (32.0-36.5); MEAN CORPUSCULAR VOLUME 97.2 fl (80.0-96.0); PLATELET COUNT, AUTOMATED 173 10^3/uL (150-450); RED BLOOD COUNT 3.92 10^6/uL (4.30-6.10); WHITE BLOOD COUNT 9.3 10^3/uL (4.0-10.0)
[2020-12-10 05:54] LABS: ALBUMIN 2.3 GM/DL (3.2-5.2); ALT/SGPT 18 U/L (12-78); BILIRUBIN,TOTAL 1.4 MG/DL (0.2-1.0); BLOOD UREA NITROGEN 19 MG/DL (7-18); CALCIUM LEVEL 8.5 MG/DL (8.8-10.2); CARBON DIOXIDE LEVEL 27 MEQ/L (21-32); CHLORIDE LEVEL 105 MEQ/L (98-107); GLOMERULAR FILTRATION RATE > 60.0 (>42); GLUCOSE, FASTING 108 MG/DL (70-100); SODIUM LEVEL 138 MEQ/L (136-145); TOTAL PROTEIN 5.1 GM/DL (6.4-8.2)
[2020-12-10] MEDS: LEVOTHYROXINE 25MCG TABLET (0.025MG) PO SCH (09:08)
[2020-12-10] MEDS: DOCUSATE SODIUM 100MG CAPSULE PO SCH ×2 (09:08→20:37)
[2020-12-10] MEDS: GABAPENTIN 400MG CAP PO SCH ×3 (09:09→20:37)
[2020-12-10] MEDS: rOPINIRole 0.25 MG TAB(REQUIP) PO SCH (09:10)
[2020-12-10] MEDS: amLODIPine 5 MG TAB PO SCH (09:10)
[2020-12-10] MEDS: METOPROLOL TART 12.5 MG PER 1/2 TAB PO SCH (09:10)
--- NOTE | 2020-12-10 11:21 | RADONC.CN ---
Radiation Oncology Hx/Consult Radiation Oncology Consult Date of Service: December 10, 2020 Pt Identifier Darrius Felton is a 70 year old male former smoker who has been hospitalized with an incarcerated ventral hernia s/p surgical repair, he has been followed by pulmonology for his COPD and was noted to have suspicious pulmonary nodules, however he had been lost to imaging follow up until this admission when CT revealed a spiculated 5 cm RICH mass convincing for malignancy, as well as an ill-defined mass in the RLL and an expansile lesion in the right posterior 9th rib. He is seen at the request of Dr. Atkins for management recommendations for this new lung cancer. Diagnosis/Treatment History Oncologic History 2018 [address] chest with LLL granuloma and hilar abnormality which spontaneously resol gerardo. He was subsequently lost to follow up imaging until 12/06/20 when he presented to [facility] with abdominal pain and was imaged in the ED and found to have an incarcerated ventral hernia which was surgically managed by Dr. Mike on 12/08/20. In the ED he also had CT chest which revealed a 5 cm RICH mass in the lingula as well as an ill-defined RLL lesion at the posterior base 3.5 cm in extent. There was also an expansile lesion in the right posterior 9th rib concerning for metastasis. Dr. Atkins does not think a biopsy of the lung lesion is feasible with EBUS due to the poor quality of his lung parenchyma. PFTs (per Dr. Atkins) 30% DLCO FEV1 1.56 53% pred Severe COPD Interval History Darrius reports his abdominal pain is manageable. He remains obstipated. He has not been having hemoptysis. He wears O2 at home ATC 3L. He has a productive cough which is constant. He has a history of PVD s/p aortobifemoral bypass. He is able to walk ~15 feet without dyspnea on O2. He is on coumadin. He has pain in his legs which is constant. Past Medical History: COPD on 3L at home Hx of RLE DVT on warfarin Hypothyroidism RLS PAD s/p stenting AAA s/p stent Aortobifemoral bypass HTN Hypercholesterolemia Past Surgical History: As above Family History: No family history of cancer Social History: 50+ pack year former smoker Does not drink alcohol Allergies / Meds Allergies: Coded Allergies: NSAIDS (Non-Steroidal Anti-Inflamma (Verified Allergy, Unknown, 12/06/20) Home Meds Reported Medications Hydrocodone/Acetaminophen (Hydrocodone-Acetamin 5-325 mg) 1 Each Tablet, 1 TAB PO Q8H PRN for PAIN 12/06/20 Ropinirole HCl (Ropinirole HCl) 0.5 Mg Tablet, 0.5 MG PO DAILY 12/06/20 Levothyroxine Sodium (LEVOTHYROXINE SODIUM) 25 Mcg Tablet, 25 MCG PO DAILY 12/06/20 Atorvastatin Calcium (Atorvastatin Calcium) 10 Mg Tablet, 10 MG PO QPM 12/06/20 Gabapentin (Gabapentin) 400 Mg Capsule, 400 MG PO TID 12/06/20 Amlodipine Besylate (Amlodipine Besylate) 5 Mg Tablet, 5 MG PO DAILY 12/06/20 Lisinopril (Lisinopril) 10 Mg Tablet, 10 MG PO DAILY 12/06/20 Metoprolol Tartrate (Metoprolol Tartrate) 25 Mg Tablet, 12.5 MG PO DAILY 12/06/20 Warfarin Sodium (Warfarin Sodium) 2 Mg Tablet, 2 MG PO QPM 12/06/20 Review of Systems Constitutional: Reports: Fatigue, Weight Loss; Denies: Fever, Night Sweats Eyes: Denies: Pain HEENT: Denies: Head Aches Skin: Denies: Rash Pulmonary: Reports: Dyspnea, Cough, Pleuritic Chest Pain Cardiovascular: Reports: Orthopnea, Edema; Denies: Chest Pain Gastrointestinal: Reports: Abdominal Pain, Constipation Hematologic: Denies: Bruising Musculoskeletal: Reports: Back pain; Denies: Neck pain Neurological: Reports: Numbness; Denies: Weakness Psych: Reports: Mood Normal Vital Signs Vital Signs Date Time Temp Pulse Resp B/P (MAP) Pulse Ox O2 Delivery O2 Flow Rate FiO2 12/10/20 09:10 96 123/62 12/10/20 08:00 97.5 19 91 Tent/Lewis 28 12/09/20 20:00 3.0 General Exam: Positive: Alert, Cooperative, No Acute Distress, Other (Ventimask O2 3L, NG tube with bilious output) Eye Exam: Positive: PERRLA, EOMI ENT EXAM: Positive: Atraumatic Neck Exam: Positive: Supple; Negative: Lymphadenopathy Chest Exam: Positive: Clear to auscultation, Rhonchi Heart Exam: Positive: Rate Normal, Regular Rhythm Abdomen Exam: Negative: Other (Did not exam dressing intact) Extremity Exam: Positive: Edema Skin Exam: Positive: Nl turgor and temperature Psych Exam: Positive: Mental status NL Diagnostic and Laboratory Diagnostic Review Radiologic images, relevant labs and pathology reports were personally reviewed and discussed with Mr. Felton. Laboratory Tests 12/09/20 04:19 12/10/20 05:05 Laboratory Tests 12/08/20 10:49: Blood Gas Bicarbonate Standard 26.0, Arterial Blood pH 7.446, Arterial Blood Partial Pressure CO2 38.4, Arterial Blood Partial Pressure O2 63.3L, Arterial Blood Total CO2 27.0, Arterial Blood HCO3 25.9, Arterial Blood Base Excess 1.9, Arterial Blood Oxygen Saturation 93.4L 12/09/20 04:19: White Blood Count 11.6H, Red Blood Count 4.29L, Hemoglobin 13.3#L, Hematocrit 41.1L, Mean Corpuscular Volume 95.8, Mean Corpuscular Hemoglobin 31.0, Mean Corpuscular Hemoglobin Concent 32.4, Red Cell Distribution Width 14.3, Platelet Count 180, Nucleated Red Blood Cells % (auto) 0.0, Sodium Level 138, Potassium Level 4.6, Chloride Level 105, Carbon Dioxide Level 28, Anion Gap 5L, Blood Urea Nitrogen 18, Creatinine 0.97, Glomerular Filtration Rate > 60.0, Fasting Glucose 131H, Calcium Level 8.3L, Total Bilirubin 2.6#H, Direct Bilirubin 1.2H, Aspartate Amino Transf (AST/SGOT) 17, Alanine Aminotransferase (ALT/SGPT) 17, Alkaline Phosphatase 54, Total Protein 5.0#L, Albumin 2.2#L, Albumin/Globulin Ratio 0.8 12/10/20 05:05: White Blood Count 9.3, Red Blood Count 3.92L, Hemoglobin 12.1L, Hematocrit 38.1L, Mean Corpuscular Volume 97.2H, Mean Corpuscular Hemoglobin 30.9, Mean Corpuscular Hemoglobin Concent 31.8L, Red Cell Distribution Width 14.4, Platelet Count 173, Nucleated Red Blood Cells % (auto) 0.0, Sodium Level 138, Potassium Level 4.0, Chloride Level 105, Carbon Dioxide Level 27, Anion Gap 6L, Blood Urea Nitrogen 19H, Creatinine 1.00, Glomerular Filtration Rate > 60.0, Fasting Glucose 108H, Calcium Level 8.5L, Total Bilirubin 1.4H, Aspartate Amino Transf (AST/SGOT) 12, Alanine Aminotransferase (ALT/SGPT) 18, Alkaline Phosphatase 54, Total Protein 5.1L, Albumin 2.3L, Albumin/Globulin Ratio 0.8 Assessment and Plan Impression Mr. Felton is a 70 year old male former smoker who has been hospitalized with an incarcerated ventral hernia s/p surgical repair, he has been followed by pulmonology for his COPD and was noted to have suspicious pulmonary nodules, however he had been lost to imaging follow up until this admission when CT revealed a spiculated 5 cm RICH mass convincing for malignancy, as well as an ill-defined mass in the RLL and an expansile lesion in the right posterior 9th rib. He is seen at the request of Dr. Atkins for management recommendations for this new lung cancer. Stage Incomplete, NSCLC [id number] RICH Performance Status ECOG 2 Plan We had an extensive discussion with Mr. Felton regarding the diagnosis at hand and available therapeutic options. He has a large RICH lesion which is spiculated and new since his prior CT chest from 2018. This given his history is certainly cancer, and almost certainly NSCLC. If this lesion were to present in isolation, given his poor PS, and poor condition of the lung parenchyma (blebs, emphysematous changes etc.), I would not hesitate to treat with SBRT without a biopsy. However, he has an ill-defined RLL lesion at the base, which is of indeterminate morphology, he also has an adjacent right posterior 9th rib lesion, which is expansile appearing, and may represent metastatic disease versus a chronic fracture. To clarify the extent of disease and stage him (and possibly identify a target for biopsy less risky than the lung lesion) I discussed obtaining an outpatient PET-CT and following up after the scan for decision making. He agreed to this as he said he would not want to do anything immediately, given his condition just a few days post-op. I furnished my contact information and will order the PET for the next 2 weeks and see him in the office afterward. If the left lung lesion is the solitary focus of avidity then I will recommend SBRT empirically. If the PET-CT reveals other lesions, then I will advocate for biopsy and medical oncology's input for initial treatment. After discussing the risks, benefits and alternatives to radiation therapy, Mr. Felton was amenable to pursuing PET-CT and outpatient follow up. All questions were answered to the patient's satisfaction. We instructed the patient that if there were any questions,concerns or changes in clinical status in the interim to contact us. Recommendations Outpatient PET-CT (I am ordering) Follow up in office with me after PET Treatment contingent upon PET findings as above Billing Statement Total time of [55] minutes was spent preparing for the visit [3], obtaining HPI [4], examining the patient [5], reviewing diagnostic tests [10], discussing ma nagement options [15], coordinating care [5], and writing this note [13]. JUAN DAVALOS MD December 10, 2020 11:21
[2020-12-10] MEDS ORDERED: PERCOCET 5MG/325MG TAB PO PRN ×2 (11:40)
[2020-12-10] MEDS ORDERED: MORPHINE 4 MG/ML 1ML VIAL/SYRINGE (J2270) IV PRN (11:40)
[2020-12-10] MEDS: ALVIMOPAN 12 MG CAPSULE (ENTEREG) PO SCH ×2 (12:56→20:37)
--- NOTE | 2020-12-10 15:25 | IPNPDOC ---
Date Seen The patient was seen on 12/10/20. Progress Note SUBJECTIVE: POD 2 bowel resection and repair of hernia 2/2 to strangulated small bowel. Sats dropped to 80's overnight, currently using face tent with NG tube to help with O2 sats, overall improving. No BM or flatus as of yet. Denies incr shortness of breath, chest pain, n/v/d. OBJECTIVE: PHYSICAL EXAMINATION: VITAL SIGNS: please see below General: lying in bed, NAD HEENT: PERRLA, EOMI, sclerae clear, NG tube in place to IS, NC in place Neck: supple, normal ROM, no JVD Respiratory: crackles in bilateral lung bases, air entry fair, limited by body positioning CVS: RRR, normal S1, S2, no murmurs Abdo: large vertical abd wound, wound vac in place, 2 TERRENCE drains secured with small amount of red serosanguinous fluid. BS hypoactive, mild tenderness to palpation of right abd, no rigidity, guarding. Extremities: no edema, cyanosis or clubbing : wright MSK: R toe 1-5 amp. Chronic venous stasis changes. Pulses 1+ bilaterally Neuro: no focal neuro deficits, moving all 4 extremities, CN2-12 intact. Strength 5/5 in all 4 extremities. No nystagmus. Psych: calm, cooperative, AAO x 3 LABORATORY DATA: See below. MICRO: BCx x 2 sets NG IMAGING: KUB 12/07/20: KUB shows the intestinal gas pattern to be nonspecific. There are multiple dilated gas-filled small bowel loops with a paucity if not absence of gas in the rectal region. The organ silhouettes insofar as delineated are unremarkable. There is no evidence of free intraperitoneal air. CT abd/ pelvis with IV contrast (12/06/20): 1. 10 cm anterior abdominal wall hernia above the level of the umbilicus demonstrating a portion of the mid transverse colon and severe narrowing of the colon as it traverses into the hernia/partial obstruction. 2. 17 x 10 x 9 cm abdominal wall hernia to the right of the umbilicus and demonstrating nondistended loops of small bowel and a single loop of small bowel demonstrating severe distension with fluid and edema along the margins very suspicious for ischemic changes. This is all consistent with closed loop obstruction/incarcerated hernia. There is a small amount of free fluid along the right side of this large hernia abutting herniated mesentery and distended small bowel. The ileum distal to this is decompressed all consistent with a transition zone and complete obstruction. Hernia with incarceration and strangulation. CT chest with IV contrast (12/06/20): 1. Severe changes of COPD, emphysema, and scarring. 2. Possible lytic lesion of the posterior aspect of the right 9th rib. 3. 5 cm x 3.8 cm oval mass at the left mid lung field consistent with a malignant mass. Probable additional mass at the right lung base measuring 4 cm x 2.3 cm. CXR (12/06/20): There is a 5 cm mass in the lower left lung. There may be some mild atelectasis or infiltrate in the right lung base. ASSESSMENT: 70-year-old male with a past medical history of COPD on 3 L, peripheral arterial disease, AAA s/p stenting/ aortobifemoral bypass, hypertension, hypercholesterolemia , hx large ventral hernias admitted for large hernia with SBO, bilateral lung masses. PLAN: Strangulated abdominal hernia with SBO -POD 2 bowel resection and repair of hernia 2/2 to strangulated small bowel. -WBC wnl, improved pain, now has wound vac in place. Not passing flatus or had BM still , received MOM and colace -Decreased NG tube o/p -Surgery following -NPO, NG to LIS, supportive care with pain meds, zosyn, IVF Bilateral lung masses with poss mets to bone, likely bronchogenic carcinoma -Evaluated by Dr. Modi, radiation oncology. Incomplete, NSCLC [id number] RICH. Also has he has an ill-defined RLL lesion at the base, which is of indeterminate morphology, he also has an adjacent right posterior 9th rib lesion, which is expansile appearing, and may represent metastatic disease versus a chronic fracture? -Hx of smoking -Pulmonary was consulted and reviewed results with patient in great detail today. Please refer to his note. -RAd/Onc suggestions: Outpatient PET-CT (Dr. Modi is ordering), follow up in office with Dr. Modi after PET, treatment contingent upon PET findings HTN -C/w hydralazine PRN, PO amlodipine 5 mg, lisinopril 10 mg, metoprolol 12.5 mg PAD/AAA stenting -Follows with vascular surgery at [facility] -Warfarin has been held due to possible surgery -Holding therapeutic dosing lovenox , start on px today, statin. not on ASA Hx of RLE DVT - takes warfarin 2 mg daily - INR 1.6 today - Holding warfarin, starting only px lovenox, can likely start lovenox t herapeutic dose BID 12/11/20 Hx of COLIN -Unknown if uses home CPAP -Per pulm, noncompliant Hypothyroidism - levothyroxine 25 mcg Neuropathy -Gapapentin RLS - ropinirole Obesity -BMI 34, complicates care GI px -PPI DVT ppx -Lovenox px dosing for now . SCD, teds DISPOSITION: Surgery, rad/onc and pulmonary consulted/following. PT/OT. VS, I&O, 24H, Fishbone Vital Signs/I&O Vital Signs Date Time Temp Pulse Resp B/P (MAP) Pulse Ox O2 Delivery O2 Flow Rate FiO2 12/10/20 12:00 96.8 85 18 130/62 (84) 93 Tent/Lewis 28 12/09/20 20:00 3.0 I&O- Last 24 Hours up to 6 AM 12/10/20 06:00 Intake Total 2865 ml Output Total 1375 ml Balance 1490 ml Laboratory Data 24H LABS Laboratory Tests 2 12/10/20 05:05: Nucleated Red Blood Cells % (auto) 0.0, Anion Gap 6L, Glomerular Filtration Rate > 60.0, Calcium Level 8.5L, Total Bilirubin 1.4H, Aspartate Amino Transf (AST/SGOT) 12, Alanine Aminotransferase (ALT/SGPT) 18, Alkaline Phosphatase 54, Total Protein 5.1L, Albumin 2.3L, Albumin/Globulin Ratio 0.8 CBC/BMP Laboratory Tests 12/10/20 05:05 Microbiology Microbiology 12/06/20 Blood Culture - Preliminary, Resulted No Growth after 72 hours. All specime... 12/06/20 Blood Culture - Preliminary, Resulted No Growth after 72 hours. All specime... Savana Portillo MD December 10, 2020 15:25
[2020-12-10] MEDS: ENOXAPARIN 40MG/0.4ML SYRINGE (J1650 PER 10MG) SC SCH (16:21)
[2020-12-10] MEDS: ATORVASTATIN 10 MG TAB PO SCH (17:10)
[2020-12-10] MEDS: PANTOPRAZOLE 40MG VIAL (C9113 PER 1) IV SCH (20:38)
[2020-12-11] VITALS (25 sets, daily range): BP systolic 134–158; BP diastolic 64–80; O2SAT 90–100
[2020-12-11] MEDS: IPRATROPIUM 0.5MG/ALBUTEROL 2.5MG INH SOL UD 3ML (DUONEB) NEB SCH ×6 (03:03→23:57)
[2020-12-11] MEDS: LR 1,000 ML IV SCH ×2 (03:27→17:00)
[2020-12-11 05:30] LABS: MEAN CORPUSCULAR HEMOGLOBIN 30.8 pg (27.0-33.0); MEAN CORPUSCULAR HGB CONC 31.6 g/dl (32.0-36.5); MEAN CORPUSCULAR VOLUME 97.7 fl (80.0-96.0); PLATELET COUNT, AUTOMATED 203 10^3/uL (150-450); RED BLOOD COUNT 3.89 10^6/uL (4.30-6.10)
[2020-12-11 05:53] LABS: ALBUMIN 2.2 GM/DL (3.2-5.2); ALT/SGPT 17 U/L (12-78); BILIRUBIN,TOTAL 1.1 MG/DL (0.2-1.0); BLOOD UREA NITROGEN 18 MG/DL (7-18); CALCIUM LEVEL 7.6 MG/DL (8.8-10.2); CARBON DIOXIDE LEVEL 30 MEQ/L (21-32); CHLORIDE LEVEL 107 MEQ/L (98-107); CREATININE FOR GFR 0.79 MG/DL (0.70-1.30); GLOMERULAR FILTRATION RATE > 60.0 (>42); GLUCOSE, FASTING 101 MG/DL (70-100); POTASSIUM SERUM 4.3 MEQ/L (3.5-5.1); SODIUM LEVEL 141 MEQ/L (136-145); TOTAL PROTEIN 5.2 GM/DL (6.4-8.2)
[2020-12-11] MEDS: rOPINIRole 0.25 MG TAB(REQUIP) PO SCH (08:36)
[2020-12-11] MEDS: METOPROLOL TART 12.5 MG PER 1/2 TAB PO SCH (08:36)
[2020-12-11] MEDS: LEVOTHYROXINE 25MCG TABLET (0.025MG) PO SCH (08:37)
[2020-12-11] MEDS: DOCUSATE SODIUM 100MG CAPSULE PO SCH ×2 (08:37→21:18)
[2020-12-11] MEDS: ALVIMOPAN 12 MG CAPSULE (ENTEREG) PO SCH ×2 (08:37→21:18)
[2020-12-11] MEDS: amLODIPine 5 MG TAB PO SCH (08:37)
[2020-12-11] MEDS: GABAPENTIN 400MG CAP PO SCH ×3 (08:37→21:18)
[2020-12-11] MEDS: ENOXAPARIN 40MG/0.4ML SYRINGE (J1650 PER 10MG) SC SCH (08:38)
--- NOTE | 2020-12-11 11:45 | IPNPDOC ---
Text Note Date of Service The patient was seen on 12/11/20. NOTE Patient seen this morning, reports he is passing flatus now, no BMs yet, minimal abdominal pain. Prevena wound vac in place VS stable still on O2 lewis Sats at 93% at 5L flow NGT 400 ml/24 hrs, 300 mLs today so far On exam, laying flat on bed, comfortable no JVD lungs clear bilaterally regular hear rate and rhythm abdomen: There is noticeable decrease distention, still mildly distended, midline incision covered with Prevena, working, not much drainage, bilateral subcutaneous drains with minimal serosanguenous fluid. Impression and plan strangulated small bowel from incisional hernia s/p repair POD3 will check xrays today will clamp ngt to see if he is able to tolerate it. continue incentives continue increase activity ok to restart coumadin. VS,Fishbone, I+O VS, Fishbone, I+O Laboratory Tests 12/11/20 05:00 Vital Signs Date Time Temp Pulse Resp B/P (MAP) Pulse Ox O2 Delivery O2 Flow Rate FiO2 12/11/20 09:22 93 Tent/Lewis 5.0 28 12/11/20 08:37 148/60 12/11/20 08:36 89 12/11/20 08:00 97.7 17 I&O- Last 24 Hours up to 6 AM 12/11/20 06:00 Intake Total 1820 ml Output Total 1805 ml Balance 15 ml IRASEMA BONNER MD December 11, 2020 11:45
--- NOTE | 2020-12-11 12:02 | IPNPDOC ---
Date Seen The patient was seen on 12/11/20. Progress Note SUBJECTIVE: Passing flatus only, no BM. clamping NG tube per surgery to see if can tolerate. Starting back on therapeutic dosing lovenox and starting coumadin. Imaging ordered. Patient denies incr abd pain, incr shortness of breath, chest pain, n/v/d. OBJECTIVE: PHYSICAL EXAMINATION: VITAL SIGNS: please see below General: lying in bed, NAD HEENT: PERRLA, EOMI, sclerae clear, NG tube in place to IS, NC in place Neck: supple, normal ROM, no JVD Respiratory: crackles in bilateral lung bases, air entry fair, limited by body positioning CVS: RRR, normal S1, S2, no murmurs Abdo: large vertical abd wound, wound vac in place, 2 TERRENCE drains secured with small amount of red serosanguinous fluid. BS hypoactive, mild tenderness generally, no rigidity, guarding. Extremities: no edema, cyanosis or clubbing : wright MSK: R toe 1-5 amp. Chronic venous stasis changes. Pulses 1+ bilaterally Neuro: no focal neuro deficits, moving all 4 extremities, CN2-12 intact. Strength 5/5 in all 4 extremities. No nystagmus. Psych: calm, cooperative, AAO x 3 LABORATORY DATA: See below. MICRO: BCx x 2 sets NG IMAGING: KUB 12/07/20: KUB shows the intestinal gas pattern to be nonspecific. There are multiple dilated gas-filled small bowel loops with a paucity if not absence of gas in the rectal region. The organ silhouettes insofar as delineated are unremarkable. There is no evidence of free intraperitoneal air. CT abd/ pelvis with IV contrast (12/06/20): 1. 10 cm anterior abdominal wall hernia above the level of the umbilicus demonstrating a portion of the mid transverse colon and severe narrowing of the colon as it traverses into the hernia/partial obstruction. 2. 17 x 10 x 9 cm abdominal wall hernia to the right of the umbilicus and demonstrating nondistended loops of small bowel and a single loop of small bowel demonstrating severe distension with fluid and edema along the margins very suspicious for ischemic changes. This is all consistent with closed loop obstruction/incarcerated hernia. There is a small amount of free fluid along the right side of this large hernia abutting herniated mesentery and distended small bowel. The ileum distal to this is decompressed all consistent with a transition zone and complete obstruction. Hernia with incarceration and strangulation. CT chest with IV contrast (12/06/20): 1. Severe changes of COPD, emphysema, and scarring. 2. Possible lytic lesion of the posterior aspect of the right 9th rib. 3. 5 cm x 3.8 cm oval mass at the left mid lung field consistent with a malignant mass. Probable additional mass at the right lung base measuring 4 cm x 2.3 cm. CXR (12/06/20): There is a 5 cm mass in the lower left lung. There may be some mild atelectasis or infiltrate in the right lung base. ASSESSMENT: 70-year-old male with a past medical history of COPD on 3 L, peripheral arterial disease, AAA s/p stenting/ aortobifemoral bypass, hypertension, hypercholesterolemia , hx large ventral hernias admitted for large hernia with SBO, bilateral lung masses. PLAN: Strangulated abdominal hernia with SBO -POD 3 bowel resection and repair of hernia 2/2 to strangulated small bowel. -+ flatus, no BM -NG tube clamped, receiving sips/chips and meds -WBC wnl, improved pain, still has wound vac in place. -Decreased NG tube o/p -Surgery following -NPO, supportive care with pain meds, IVF Bilateral lung masses with poss mets to bone, likely bronchogenic carcinoma -remains on 2-3 L O2 support with face tent (FiO2 28%) -Evaluated by Dr. Modi, radiation oncology. Incomplete, NSCLC [id number] RICH. Also has he has an ill-defined RLL lesion at the base, which is of indeterminate morphology, he also has an adjacent right posterior 9th rib lesion, which is expansile appearing, and may represent metastatic disease versus a chronic fracture? -Hx of smoking -Pulmonary was consulted and reviewed results with patient in great detail today. Please refer to his note. -Rad/Onc suggestions: Outpatient PET-CT (Dr. Modi is ordering), follow up in office with Dr. Modi after PET, treatment contingent upon PET findings HTN -C/w PO amlodipine 5 mg, lisinopril 10 mg, metoprolol 12.5 mg, hydralazine PRN, PAD/AAA stenting -Follows with vascular surgery at [facility] -Warfarin has been held but will restart -Start on therapeutic lovenox dosing today to bridge to therapeutic INR, statin. Not on ASA Hx of RLE DVT - takes warfarin 2 mg daily - INR 1.6 last 12/08/20 - Restarting warfarin, lovenox BID Hx of COLIN -Unknown if uses home CPAP -Per pulm, noncompliant Hypothyroidism - levothyroxine 25 mcg Neuropathy -Gapapentin RLS - ropinirole Obesity -BMI 34, complicates care GI px -PPI DVT ppx -Restarting warfarin, lovenox BID DISPOSITION: Surgery, rad/onc and pulmonary consulted/following. PT/OT. VS, I&O, 24H, Fishbone Vital Signs/I&O Vital Signs Date Time Temp Pulse Resp B/P (MAP) Pulse Ox O2 Delivery O2 Flow Rate FiO2 12/11/20 09:22 93 Tent/Lewis 5.0 28 12/11/20 08:37 148/60 12/11/20 08:36 89 12/11/20 08:00 97.7 17 I&O- Last 24 Hours up to 6 AM 12/11/20 06:00 Intake Total 1820 ml Output Total 1805 ml Balance 15 ml Laboratory Data 24H LABS Laboratory Tests 2 12/11/20 05:00: Nucleated Red Blood Cells % (auto) 0.0, Anion Gap 4L, Glomerular Filtration Rate > 60.0, Calcium Level 7.6L, Total Bilirubin 1.1H, Aspartate Amino Transf (AST/SGOT) 16, Alanine Aminotransferase (ALT/SGPT) 17, Alkaline Phosphatase 58, Total Protein 5.2L, Albumin 2.2L, Albumin/Globulin Ratio 0.7 CBC/BMP Laboratory Tests 12/11/20 05:00 Microbiology Microbiology 12/06/20 Blood Culture - Preliminary, Resulted No Growth after 72 hours. All specime... 12/06/20 Blood Culture - Preliminary, Resulted No Growth after 72 hours. All specime... Savana Portillo MD December 11, 2020 12:02
[2020-12-11 12:35] LABS: INR 1.04; PROTHROMBIN TIME 13.8 SECONDS (12.5-14.3)
--- NOTE | 2020-12-11 12:38 | REP ---
INDICATION: postop, incar hernia, copd. COMPARISON: KUB of 12/07/2020 FINDINGS: Surgical drainage tubes have been placed since the last examination. There is an anterior skin staple line in place. There is small bowel dilatation predominantly gas-filled. Small amounts of free air cannot be ruled out. The accompanying frontal view the chest shows abnormal patchy opacities representing a change from the frontal view of the chest of 12/06/2020. IMPRESSION: Ileus versus partial small bowel obstruction. Postoperative changes. Lung field changes as described above. <Electronically signed by Moisés Aj > 12/11/20 [id number]
[2020-12-11] MEDS ORDERED: WARFARIN SOD 5MG TAB PO ONE (17:00)
[2020-12-11] MEDS: ATORVASTATIN 10 MG TAB PO SCH (17:00)
[2020-12-11] MEDS: ENOXAPARIN 100MG/1ML SYRINGE (J1650 PER 10MG) SC SCH (21:18)
[2020-12-11] MEDS: PANTOPRAZOLE 40MG VIAL (C9113 PER 1) IV SCH (21:18)
[2020-12-12] VITALS (16 sets, daily range): BP systolic 134–159; BP diastolic 70–81; O2SAT 94–99
[2020-12-12] MEDS: IPRATROPIUM 0.5MG/ALBUTEROL 2.5MG INH SOL UD 3ML (DUONEB) NEB SCH ×4 (04:23→16:00)
[2020-12-12 05:08] LABS: HEMATOCRIT 38.3 % (42.0-52.0); HEMOGLOBIN 12.2 g/dl (13.5-17.5); MEAN CORPUSCULAR HEMOGLOBIN 30.5 pg (27.0-33.0); MEAN CORPUSCULAR HGB CONC 31.9 g/dl (32.0-36.5); MEAN CORPUSCULAR VOLUME 95.8 fl (80.0-96.0); PLATELET COUNT, AUTOMATED 192 10^3/uL (150-450); WHITE BLOOD COUNT 7.6 10^3/uL (4.0-10.0)
[2020-12-12 05:17] LABS: INR 1.2; PROTHROMBIN TIME 15.5 SECONDS (12.5-14.3)
[2020-12-12 05:37] LABS: ALBUMIN 2.2 GM/DL (3.2-5.2); ALT/SGPT 20 U/L (12-78); BILIRUBIN,TOTAL 0.8 MG/DL (0.2-1.0); BLOOD UREA NITROGEN 15 MG/DL (7-18); CALCIUM LEVEL 8.5 MG/DL (8.8-10.2); CARBON DIOXIDE LEVEL 26 MEQ/L (21-32); CHLORIDE LEVEL 106 MEQ/L (98-107); CREATININE FOR GFR 0.65 MG/DL (0.70-1.30); GLOMERULAR FILTRATION RATE > 60.0 (>42); GLUCOSE, FASTING 83 MG/DL (70-100); POTASSIUM SERUM 3.9 MEQ/L (3.5-5.1); SODIUM LEVEL 138 MEQ/L (136-145); TOTAL PROTEIN 5.8 GM/DL (6.4-8.2)
[2020-12-12] MEDS: LEVOTHYROXINE 25MCG TABLET (0.025MG) PO SCH (06:32)
[2020-12-12] MEDS: LR 1,000 ML IV SCH (06:32)
--- NOTE | 2020-12-12 08:35 | REP ---
INDICATION: ffup sbo. COMPARISON: Yesterday FINDINGS: Once again, there is a small bowel dilatation essentially unchanged possibly increased slightly from the prior exam. Postoperative change noted status quo. There is no evidence of angelito intestinal obstruction. Small amount of radiographic contrast is seen in the rectosigmoid region. IMPRESSION: As above <Electronically signed by Moisés Aj > 12/12/20 0830
[2020-12-12] MEDS: ALVIMOPAN 12 MG CAPSULE (ENTEREG) PO SCH ×2 (09:28→20:53)
[2020-12-12] MEDS: GABAPENTIN 400MG CAP PO SCH ×3 (09:28→20:54)
[2020-12-12] MEDS: rOPINIRole 0.25 MG TAB(REQUIP) PO SCH (09:28)
[2020-12-12] MEDS: METOPROLOL TART 12.5 MG PER 1/2 TAB PO SCH (09:28)
[2020-12-12] MEDS: amLODIPine 5 MG TAB PO SCH (09:29)
[2020-12-12] MEDS: DOCUSATE SODIUM 100MG CAPSULE PO SCH ×2 (09:29→20:54)
[2020-12-12] MEDS: ENOXAPARIN 100MG/1ML SYRINGE (J1650 PER 10MG) SC SCH ×2 (09:29→20:54)
--- NOTE | 2020-12-12 13:07 | IPNPDOC ---
Date Seen The patient was seen on 12/12/20. Progress Note SUBJECTIVE: Still only passing flatus only, no BM. To get another dose of coumadin tonight, c/w therapeutic lovenox BID. Imaging ordered. Patient denies incr abd pain, incr shortness of breath, chest pain, n/v/d. OBJECTIVE: PHYSICAL EXAMINATION: VITAL SIGNS: please see below General: lying in bed, NAD HEENT: PERRLA, EOMI, sclerae clear, NG tube in place to IS, NC in place Neck: supple, normal ROM, no JVD Respiratory: crackles in bilateral lung bases, air entry fair, limited by body positioning CVS: RRR, normal S1, S2, no murmurs Abdo: large vertical abd wound, wound vac in place, 2 TERRENCE drains secured with small amount of red serosanguinous fluid. BS hypoactive, nontender, no rigidity, guarding, BS hypoactive Extremities: no edema, cyanosis or clubbing : wright MSK: R toe 1-5 amp. Chronic venous stasis changes. Pulses 1+ bilaterally Neuro: no focal neuro deficits, moving all 4 extremities, CN2-12 intact. Strength 5/5 in all 4 extremities. No nystagmus. Psych: calm, cooperative, AAO x 3 LABORATORY DATA: See below. MICRO: BCx x 2 sets NG IMAGING: KUB 12/07/20: KUB shows the intestinal gas pattern to be nonspecific. There are multiple dilated gas-filled small bowel loops with a paucity if not absence of gas in the rectal region. The organ silhouettes insofar as delineated are unremarkable. There is no evidence of free intraperitoneal air. CT abd/ pelvis with IV contrast (12/06/20): 1. 10 cm anterior abdominal wall hernia above the level of the umbilicus demonstrating a portion of the mid transverse colon and severe narrowing of the colon as it traverses into the hernia/partial obstruction. 2. 17 x 10 x 9 cm abdominal wall hernia to the right of the umbilicus and demonstrating nondistended loops of small bowel and a single loop of small bowel demonstrating severe distension with fluid and edema along the margins very suspicious for ischemic changes. This is all consistent with closed loop obstruction/incarcerated hernia. There is a small amount of free fluid along the right side of this large hernia abutting herniated mesentery and distended small bowel. The ileum distal to this is decompressed all consistent with a transition zone and complete obstruction. Hernia with incarceration and strangulation. CT chest with IV contrast (12/06/20): 1. Severe changes of COPD, emphysema, and scarring. 2. Possible lytic lesion of the posterior aspect of the right 9th rib. 3. 5 cm x 3.8 cm oval mass at the left mid lung field consistent with a malignant mass. Probable additional mass at the right lung base measuring 4 cm x 2.3 cm. CXR (12/06/20): There is a 5 cm mass in the lower left lung. There may be some mild atelectasis or infiltrate in the right lung base. ASSESSMENT: 70-year-old male with a past medical history of COPD on 3 L, peripheral arterial disease, AAA s/p stenting/ aortobifemoral bypass, hypertension, hypercholesterolemia , hx large ventral hernias admitted for large hernia with SBO, bilateral lung masses. PLAN: Strangulated abdominal hernia with SBO -POD 4 bowel resection and repair of hernia 2/2 to strangulated small bowel. -+ flatus, no BM still -NG tube clamped, receiving sips/chips and meds and tolerating well -WBC wnl, improved pain, still has wound vac in place. -F/u imaging today -Surgery following -C/w pain meds, IVF Bilateral lung masses with poss mets to bone, likely bronchogenic carcinoma -remains on 2-3 L O2 support with face tent (FiO2 28%) -Evaluated by Dr. Modi, radiation oncology. Incomplete, NSCLC [id number] RICH. Also has he has an ill-defined RLL lesion at the base, which is of indeterminate morphology, he also has an adjacent right posterior 9th rib lesion, which is exp ansile appearing, and may represent metastatic disease versus a chronic fracture? -Hx of smoking -Pulmonary was consulted and reviewed results with patient in great detail today. Please refer to his note. -Rad/Onc suggestions: Outpatient PET-CT (Dr. Modi is ordering), follow up in office with Dr. Modi after PET, treatment contingent upon PET findings HTN -Stable -C/w PO amlodipine 5 mg, lisinopril 10 mg, metoprolol 12.5 mg, hydralazine PRN, PAD/AAA stenting -Follows with vascular surgery at [facility] -Warfarin has been held but will restart -Start on therapeutic lovenox dosing today to bridge to therapeutic INR, statin. Not on ASA Hx of RLE DVT -S/p 10 mg coumadin 12/11/20 and to get another 7.5 tonight -INR 1.2 -INR daily -dosing warfarin daily, lovenox BID Hx of COLIN -Unknown if uses home CPAP -Per pulm, noncompliant Hypothyroidism - levothyroxine 25 mcg Neuropathy -Gapapentin RLS - ropinirole Obesity -BMI 34, complicates care GI px -PPI DVT ppx - warfarin, lovenox BID DISPOSITION: Surgery, rad/onc and pulmonary consulted/following. PT/OT. VS, I&O, 24H, Fishbone Vital Signs/I&O Vital Signs Date Time Temp Pulse Resp B/P (MAP) Pulse Ox O2 Delivery O2 Flow Rate FiO2 12/12/20 12:00 97.4 80 18 134/75 (94) 94 Nasal Cannula 5.0 12/11/20 15:00 28 I&O- Last 24 Hours up to 6 AM 12/12/20 05:59 Intake Total 220 ml Output Total 1595 ml Balance -1375 ml Laboratory Data 24H LABS Laboratory Tests 2 12/12/20 04:50: Nucleated Red Blood Cells % (auto) 0.0, Prothrombin Time 15.5H, Prothromb Time International Ratio 1.20, Anion Gap 6L, Glomerular Filtration Rate > 60.0, Calcium Level 8.5L, Total Bilirubin 0.8, Aspartate Amino Transf (AST/SGOT) 15, Alanine Aminotransferase (ALT/SGPT) 20, Alkaline Phosphatase 56, Total Protein 5.8L, Albumin 2.2L, Albumin/Globulin Ratio 0.6 CBC/BMP Laboratory Tests 12/12/20 04:50 Microbiology Microbiology 12/06/20 Blood Culture - Final, Complete NO GROWTH AFTER 5 DAYS 12/06/20 Blood Culture - Final, Complete NO GROWTH AFTER 5 DAYS Savana Portillo MD December 12, 2020 13:07
[2020-12-12] MEDS ORDERED: WARFARIN SOD 7.5MG TAB PO ONE (17:00)
[2020-12-12] MEDS: ATORVASTATIN 10 MG TAB PO SCH (17:11)
[2020-12-12] MEDS: PANTOPRAZOLE 40MG VIAL (C9113 PER 1) IV SCH (20:54)
[2020-12-13] VITALS (7 sets, daily range): BP systolic 129–158; BP diastolic 62–95
[2020-12-13] MEDS: LR 1,000 ML IV SCH (00:03)
[2020-12-13] MEDS: IPRATROPIUM 0.5MG/ALBUTEROL 2.5MG INH SOL UD 3ML (DUONEB) NEB SCH ×6 (00:38→19:25)
[2020-12-13 05:59] LABS: HEMATOCRIT 38.1 % (42.0-52.0); HEMOGLOBIN 12.1 g/dl (13.5-17.5); MEAN CORPUSCULAR HEMOGLOBIN 30.3 pg (27.0-33.0); MEAN CORPUSCULAR HGB CONC 31.8 g/dl (32.0-36.5); MEAN CORPUSCULAR VOLUME 95.3 fl (80.0-96.0); PLATELET COUNT, AUTOMATED 207 10^3/uL (150-450); WHITE BLOOD COUNT 6.5 10^3/uL (4.0-10.0)
[2020-12-13 06:10] LABS: INR 2.39; PROTHROMBIN TIME 26.6 SECONDS (12.5-14.3)
[2020-12-13] MEDS: LEVOTHYROXINE 25MCG TABLET (0.025MG) PO SCH (06:10)
[2020-12-13 06:32] LABS: ALBUMIN 2.3 GM/DL (3.2-5.2); ALT/SGPT 25 U/L (12-78); BILIRUBIN,TOTAL 0.7 MG/DL (0.2-1.0); BLOOD UREA NITROGEN 12 MG/DL (7-18); CALCIUM LEVEL 8.1 MG/DL (8.8-10.2); CARBON DIOXIDE LEVEL 26 MEQ/L (21-32); CHLORIDE LEVEL 107 MEQ/L (98-107); CREATININE FOR GFR 0.61 MG/DL (0.70-1.30); GLOMERULAR FILTRATION RATE > 60.0 (>42); GLUCOSE, FASTING 89 MG/DL (70-100); POTASSIUM SERUM 3.9 MEQ/L (3.5-5.1); SODIUM LEVEL 140 MEQ/L (136-145); TOTAL PROTEIN 5.3 GM/DL (6.4-8.2)
[2020-12-13] MEDS: DOCUSATE SODIUM 100MG CAPSULE PO SCH ×2 (09:00→20:58)
--- NOTE | 2020-12-13 09:10 | IPNPDOC ---
Text Note Date of Service The patient was seen on 12/13/20. NOTE General surgery Dr Bonner Patient is out of bed to the chair this morning and having breakfast, states he is tolerating clear liquids with no nausea or vomiting. Reports flatus and 2 bowel movements yesterday. States abdominal pain has been controlled. Wound VAC in place. Afebrile, VSS Out of bed to chair, no acute distress. MMM Good air entry bilaterally regular hear rate and rhythm abdomen: still mildly distended but soft, midline incision covered with wound VAC, TERRENCE drains with serosanguineous fluid. 40 mL drainage from TERRENCE drains yesterday. Currently with serosanguineous drainage noted. I/O [id number] +925 Assessment/plan Strangulated small bowel from incisional hernia s/p repair as per Dr. Bonner 12/08/20 The patient reports pain is controlled. Tolerating clear liquids. IVF 75cc/hr Wound VAC in place over her midline incision TERRENCE drain [address] continue incentive spirometry Encourage out of bed and ambulation. VS,Fishbone, I+O VS, Sergeybone, I+O Laboratory Tests 12/13/20 05:49 Vital Signs Date Time Temp Pulse Resp B/P (MAP) Pulse Ox O2 Delivery O2 Flow Rate FiO2 12/13/20 07:18 97.6 83 20 138/67 (90) 95 Nasal Cannula 3.0 12/11/20 15:00 28 I&O- Last 24 Hours up to 6 AM0 12/13/20 05:59 Intake Total 1890 ml Output Total 1745 ml Balance 145 ml Shirlene Lopez December 13, 2020 09:09 IRASEMA BONNER MD December 29, 2020 05:01
[2020-12-13] MEDS: ENOXAPARIN 100MG/1ML SYRINGE (J1650 PER 10MG) SC SCH (09:32)
[2020-12-13] MEDS: ALVIMOPAN 12 MG CAPSULE (ENTEREG) PO SCH ×2 (09:32→20:59)
[2020-12-13] MEDS: rOPINIRole 0.25 MG TAB(REQUIP) PO SCH (09:33)
[2020-12-13] MEDS: GABAPENTIN 400MG CAP PO SCH ×3 (09:33→20:59)
[2020-12-13] MEDS: amLODIPine 5 MG TAB PO SCH (09:37)
[2020-12-13] MEDS: METOPROLOL TART 12.5 MG PER 1/2 TAB PO SCH (09:37)
--- NOTE | 2020-12-13 09:50 | IPNPDOC ---
Text Note Date of Service The patient was seen on 12/13/20. NOTE Patient seen sitting up on chair, tolerating clears. Reports he continues to pass a lot of flatus, has had two bms overnight. Denies any severe abdominal discomfort, nausea VS stable, back to baseline O2 requirements, can pull >1500mLs on incentive spirometry comfortable lungs clear, no wheezing regular heart rate and rhythm abdomen round, obese, mild softly distended, prevena in place, not much drainage, good seal, TERRENCE drain no output on right side, minimal output on left side nontender on palpation. Impression/Plans POD 5 Ex Lap small bowel resection, repair of incisional hernia COPD on 3L NC at baseline obesity BMI 35 will advance to soft solid foods today d/c right TERRENCE drain today continue mobilizing, PT and incentive spirometry He is back on coumadin, no signs of bleeding VS,Fishbone, I+O VS, Fishbone, I+O Laboratory Tests 12/13/20 05:49 Vital Signs Date Time Temp Pulse Resp B/P (MAP) Pulse Ox O2 Delivery O2 Flow Rate FiO2 12/13/20 09:37 91 172/72 12/13/20 07:18 97.6 20 95 Nasal Cannula 3.0 12/11/20 15:00 28 I&O- Last 24 Hours up to 6 AM 12/13/20 06:00 Intake Total 2790 ml Output Total 1700 ml Balance 1090 ml IRASEMA BONNER MD December 13, 2020 09:50
--- NOTE | 2020-12-13 14:34 | IPNPDOC ---
Date Seen The patient was seen on 12/13/20. Progress Note SUBJECTIVE: Passing flatus and has had 2 BM's over past 24 hours. NG tube removed, R TERRENCE to be taken out today. Advancing to soft diet today, ambulating. Patient feels much improved. Patient denies incr abd pain, incr shortness of breath, chest pain, n/v/d. OBJECTIVE: PHYSICAL EXAMINATION: VITAL SIGNS: please see below General: sitting up at bedside chair, NAD, AAO x 3 HEENT: PERRLA, EOMI, sclerae clear, NC in place Neck: supple, normal ROM, no JVD Respiratory: decreased crackles in bilateral lung bases, air entry fair, limited by body positioning CVS: RRR, normal S1, S2, no murmurs Abdo: large vertical abd wound, Prevena wound vac in place, 2 TERRENCE drains secured with small amount of red serosanguinous fluid. BS hypoactive, nontender, no rigidity, guarding, BS hypoactive Extremities: no edema, cyanosis or clubbing MSK: R toe 1-5 amp. Chronic venous stasis changes. Pulses 1+ bilaterally Neuro: no focal neuro deficits, moving all 4 extremities, CN2-12 intact. Strength 5/5 in all 4 extremities. Psych: calm, cooperative LABORATORY DATA: See below. MICRO: BCx x 2 sets NG IMAGING: AbdXR 12/12/20: Once again, there is a small bowel dilatation essentially unchanged possibly increased slightly from the prior exam. Postoperative change noted status quo. There is no evidence of angelito intestinal obstruction. Small amount of radiographic contrast is seen in the rectosigmoid region. KUB 12/07/20: KUB shows the intestinal gas pattern to be nonspecific. There are multiple dilated gas-filled small bowel loops with a paucity if not absence of gas in the rectal region. The organ silhouettes insofar as delineated are unremarkable. There is no evidence of free intraperitoneal air. CT abd/ pelvis with IV contrast (12/06/20): 1. 10 cm anterior abdominal wall hernia above the level of the umbilicus demonstrating a portion of the mid transverse colon and severe narrowing of the colon as it traverses into the hernia/partial obstruction. 2. 17 x 10 x 9 cm abdominal wall hernia to the right of the umbilicus and demonstrating nondistended loops of small bowel and a single loop of small bowel demonstrating severe distension with fluid and edema along the margins very suspicious for ischemic changes. This is all consistent with closed loop obstruction/incarcerated hernia. There is a small amount of free fluid along the right side of this large hernia abutting herniated mesentery and distended small bowel. The ileum distal to this is decompressed all consistent with a transition zone and complete obstruction. Hernia with incarceration and strangulation. CT chest with IV contrast (12/06/20): 1. Severe changes of COPD, emphysema, and scarring. 2. Possible lytic lesion of the posterior aspect of the right 9th rib. 3. 5 cm x 3.8 cm oval mass at the left mid lung field consistent with a malignant mass. Probable additional mass at the right lung base measuring 4 cm x 2.3 cm. CXR (12/06/20): There is a 5 cm mass in the lower left lung. There may be some mild atelectasis or infiltrate in the right lung base. ASSESSMENT: 70-year-old male with a past medical history of COPD on 3 L, peripheral arterial disease, AAA s/p stenting/ aortobifemoral bypass, hypertension, hypercholesterolemia , hx large ventral hernias admitted for large hernia with SBO, bilateral lung masses. PLAN: Strangulated abdominal hernia with SBO -POD 5 small bowel resection and incisional hernia repair -Multiple BM, passing flatus -NG tube out -Wound vac in place, f/u with surgery to see plan about o/p management of this -IVFs stopped -On BR, requiring minimal pain meds -Advancing to soft diet today, encouraging ambulation, IS -Surgery following Bilateral lung masses with poss mets to bone, likely bronchogenic carcinoma -remains on 2-3 L O2 support with face tent (FiO2 28%) -Evaluated by Dr. Modi, radiation oncology. Incomplete, NSCLC [id number] RICH. A lso has he has an ill-defined RLL lesion at the base, which is of indeterminate morphology, he also has an adjacent right posterior 9th rib lesion, which is expansile appearing, and may represent metastatic disease versus a chronic fracture? -Hx of smoking -Pulmonary was consulted and reviewed results with patient in great detail today. Please refer to his note. -Rad/Onc suggestions: Outpatient PET-CT (Dr. Modi is ordering), follow up in office with Dr. Modi after PET, treatment contingent upon PET findings Weakness, physical deconditioning likely acute on chronic -PT 12/13/20: "Pt demonstrating significant improvement in functional mobility this session with NG tube removed and no IVs. Pt completed bed mobility (I), sit<>stands without AD and SBA, ambulation with and without AD with SBA-CGA, no LOB noted however pt with decreased cadance however improving with increased distance. Home with services recommended" -PT/OT while here HTN -Stable -C/w PO amlodipine 5 mg, lisinopril 10 mg, metoprolol 12.5 mg, hydralazine PRN, PAD/AAA stenting -Follows with vascular surgery at [facility] -c/w statin, not on ASA as is on coumadin Hx of RLE DVT -S/p 10 mg coumadin 12/11/20 and to get another 7.5 mg coumadin 12/12/20 -INR 2.39 today, no s/s of bleeding -D/c lovenox BID, start home dose coumadin 2 mg PO nightly -INR daily Hx of COLIN -Unknown if uses home CPAP -Per pulm, noncompliant Hypothyroidism - levothyroxine 25 mcg Neuropathy -Gapapentin RLS - ropinirole Obesity -BMI 34, complicates care GI px -PPI DVT ppx - warfarin nightly, currently therapeutic DISPOSITION: Surgery, rad/onc and pulmonary have been consulted this admission- f/u their notes. PT/OT. Plan is discharge home when medically improved, possibly later this week . VS, I&O, 24H, Fishbone Vital Signs/I&O Vital Signs Date Time Temp Pulse Resp B/P (MAP) Pulse Ox O2 Delivery O2 Flow Rate FiO2 12/13/20 11:29 97.6 79 18 131/95 (107) 95 Nasal Cannula 3.0 12/11/20 15:00 28 I&O- Last 24 Hours up to 6 AM 12/13/20 05:59 Intake Total 1890 ml Output Total 1745 ml Balance 145 ml Laboratory Data 24H LABS Laboratory Tests 2 12/13/20 05:49: Nucleated Red Blood Cells % (auto) 0.0, Prothrombin Time 26.6H, Prothromb Time International Ratio 2.39, Anion Gap 7L, Glomerular Filtration Rate > 60.0, Calcium Level 8.1L, Total Bilirubin 0.7, Aspartate Amino Transf (AST/SGOT) 20, Alanine Aminotransferase (ALT/SGPT) 25, Alkaline Phosphatase 54, Total Protein 5.3L, Albumin 2.3L, Albumin/Globulin Ratio 0.8 CBC/BMP Laboratory Tests 12/13/20 05:49 Microbiology Microbiology 12/06/20 Blood Culture - Final, Complete NO GROWTH AFTER 5 DAYS 12/06/20 Blood Culture - Final, Complete NO GROWTH AFTER 5 DAYS Savana Portillo MD December 13, 2020 14:34
[2020-12-13] MEDS ORDERED: SLF 3 ML SYR IV PRN (15:15)
[2020-12-13] MEDS: WARFARIN SOD 2MG TAB PO SCH (16:40)
[2020-12-13] MEDS: ATORVASTATIN 10 MG TAB PO SCH (18:19)
[2020-12-13] MEDS: PANTOPRAZOLE 40MG VIAL (C9113 PER 1) IV SCH (20:55)
[2020-12-13] MEDS: SLF 3 ML SYR IV SCH (20:59)
[2020-12-14] VITALS: BP 134/64
[2020-12-14] MEDS: IPRATROPIUM 0.5MG/ALBUTEROL 2.5MG INH SOL UD 3ML (DUONEB) NEB SCH ×7 (00:05→23:52)
[2020-12-14] MEDS: LEVOTHYROXINE 25MCG TABLET (0.025MG) PO SCH (05:19)
[2020-12-14] MEDS: SLF 3 ML SYR IV SCH ×3 (05:19→20:27)
[2020-12-14 05:54] LABS: HEMATOCRIT 38.7 % (42.0-52.0); HEMOGLOBIN 12.5 g/dl (13.5-17.5); MEAN CORPUSCULAR HEMOGLOBIN 30.8 pg (27.0-33.0); MEAN CORPUSCULAR HGB CONC 32.3 g/dl (32.0-36.5); MEAN CORPUSCULAR VOLUME 95.3 fl (80.0-96.0); PLATELET COUNT, AUTOMATED 249 10^3/uL (150-450); RED BLOOD COUNT 4.06 10^6/uL (4.30-6.10); WHITE BLOOD COUNT 6.6 10^3/uL (4.0-10.0)
[2020-12-14 06:19] LABS: INR 2.53; PROTHROMBIN TIME 27.8 SECONDS (12.5-14.3)
[2020-12-14 06:28] LABS: ALBUMIN 2.4 GM/DL (3.2-5.2); ALT/SGPT 28 U/L (12-78); BILIRUBIN,TOTAL 0.5 MG/DL (0.2-1.0); BLOOD UREA NITROGEN 11 MG/DL (7-18); CALCIUM LEVEL 8.3 MG/DL (8.8-10.2); CARBON DIOXIDE LEVEL 28 MEQ/L (21-32); CHLORIDE LEVEL 107 MEQ/L (98-107); CREATININE FOR GFR 0.68 MG/DL (0.70-1.30); GLOMERULAR FILTRATION RATE > 60.0 (>42); GLUCOSE, FASTING 106 MG/DL (70-100); POTASSIUM SERUM 3.5 MEQ/L (3.5-5.1); SODIUM LEVEL 139 MEQ/L (136-145); TOTAL PROTEIN 6.1 GM/DL (6.4-8.2)
[2020-12-14 07:16] VITALS: BP 152/83
[2020-12-14] MEDS: rOPINIRole 0.25 MG TAB(REQUIP) PO SCH (08:14)
[2020-12-14] MEDS: amLODIPine 5 MG TAB PO SCH (08:14)
[2020-12-14] MEDS: METOPROLOL TART 12.5 MG PER 1/2 TAB PO SCH (08:14)
[2020-12-14] MEDS: GABAPENTIN 400MG CAP PO SCH ×3 (08:14→20:26)
[2020-12-14] MEDS: DOCUSATE SODIUM 100MG CAPSULE PO SCH ×3 (10:24→20:26)
[2020-12-14 11:30] VITALS: BP 128/68
--- NOTE | 2020-12-14 12:21 | IPNPDOC ---
Text Note Date of Service The patient was seen on 12/14/20. NOTE General surgery Dr Bonner Patient is out of bed to the chair this morning and having breakfast, states he is tolerating soft diet with no nausea or vomiting. 3 bowel movements yesterday. States abdominal pain has been controlled. Wound VAC in place. Afebrile, VSS Out of bed to chair, no acute distress. MMM Good air entry bilaterally regular hear rate and rhythm abdomen: still mildly distended but soft, midline incision covered with wound VAC, 1 TERRENCE drain removed yesterday, other TERRENCE drain left abdomen with serosanguineous fluid. 95 mL drainage from TERRENCE drain yesterday. Currently with serosanguineous drainage noted. I/O 2235/870, +1365 Assessment/plan Strangulated small bowel from incisional hernia s/p repair as per Dr. Bonner 12/08/20. The patient is reviewed and examined as per Dr. Bonner this morning. The patient reports pain is controlled. Advance to regular diet Wound VAC in place over her midline incision, plan to leave this in place until tomorrow. Tomorrow, plan to remove wound VAC and examine incision as per Dr. Bonner. TERRENCE drain [address] continue incentive spirometry Encourage out of bed and ambulation. Possibly consider discharge in the next 1-2 days from a surgical standpoint. Continue with physical therapy. VS,Fishbone, I+O VS, Fishbone, I+O Laboratory Tests 12/14/20 05:40 Vital Signs Date Time Temp Pulse Resp B/P (MAP) Pulse Ox O2 Delivery O2 Flow Rate FiO2 12/14/20 11:30 97.4 81 18 128/68 (88) 97 Nasal Cannula 3.0 12/11/20 15:00 28 I&O- Last 24 Hours up to 6 AM 12/14/20 06:00 Intake Total 1335 ml Output Total 860 ml Balance 475 ml Shirlene Lopez December 14, 2020 12:21 IRASEMA BONNER MD December 29, 2020 05:01
--- NOTE | 2020-12-14 14:21 | IPNPDOC ---
Text Note Date of Service The patient was seen on 12/14/20. NOTE SUBJECTIVE: -3BMs in the last 24h -Tolerating soft diet today -Denies increased abd pain, shortness of breath, chest pain, n/v/d. OBJECTIVE: VITAL SIGNS: please see below General: NAD, AAO x 3 HEENT: PERRLA, EOMI, sclerae clear, NC in place Neck: supple, normal ROM, no JVD Respiratory: decreased crackles in bilateral lung bases, air entry fair, limited by body positioning CVS: RRR, normal S1, S2, no murmurs Abdomen: large vertical abd wound with wound vac in place, 1 TERRENCE drain secured with small amount of red serosanguinous fluid. BS normoactive, nontender, no rigidity, no guarding Extremities: no edema, cyanosis or clubbing MSK: R 1-5 toes amp. Chronic venous stasis changes. Pulses 1+ bilaterally Neuro: no focal neuro deficits, moving all 4 extremities, CN2-12 intact. Strength 5/5 in all 4 extremities. Psych: calm, cooperative LABORATORY DATA: Reviewed WBC 6.6 Hgb 12.5 platelets 249 INR 2.53 na 139 K 3.5 Cr 0.68 MICRO: BCx x 2 sets NG IMAGING: AbdXR 12/12/20: Once again, there is a small bowel dilatation essentially unchanged possibly increased slightly from the prior exam. Postoperative change noted status quo. There is no evidence of angelito intestinal obstruction. Small amount of radiographic contrast is seen in the rectosigmoid region. KUB 12/07/20: KUB shows the intestinal gas pattern to be nonspecific. There are multiple dilated gas-filled small bowel loops with a paucity if not absence of gas in the rectal region. The organ silhouettes insofar as delineated are unremarkable. There is no evidence of free intraperitoneal air. CT abd/ pelvis with IV contrast (12/06/20): 1. 10 cm anterior abdominal wall hernia above the level of the umbilicus demonstrating a portion of the mid transverse colon and severe narrowing of the colon as it traverses into the hernia/partial obstruction. 2. 17 x 10 x 9 cm abdominal wall hernia to the right of the umbilicus and demonstrating nondistended loops of small bowel and a single loop of small bowel demonstrating severe distension with fluid and edema along the margins very suspicious for ischemic changes. This is all consistent with closed loop obstruction/incarcerated hernia. There is a small amount of free fluid along the right side of this large hernia abutting herniated mesentery and distended small bowel. The ileum distal to this is decompressed all consistent with a transition zone and complete obstruction. Hernia with incarceration and strangulation. CT chest with IV contrast (12/06/20): 1. Severe changes of COPD, emphysema, and scarring. 2. Possible lytic lesion of the posterior aspect of the right 9th rib. 3. 5 cm x 3.8 cm oval mass at the left mid lung field consistent with a malignant mass. Probable additional mass at the right lung base measuring 4 cm x 2.3 cm. CXR (12/06/20): There is a 5 cm mass in the lower left lung. There may be some mild atelectasis or infiltrate in the right lung base. ASSESSMENT: 70-year-old M with COPD on baseline 3 L, peripheral arterial disease, AAA s/p stenting/ aortobifemoral bypass, hypertension, hypercholester olemia , hx large ventral hernias admitted for large hernia strangulation with SBO now POD6 s/p small bowel resection and hernia repair with course c/b incidentally noted bilateral lung masses. PLAN: Strangulated abdominal hernia with SBO -POD 6 small bowel resection and incisional hernia repair -Multiple BMs, passing flatus -Tolerating soft diet -Wound vac in place, surgery managing -Encourage ambulation, IS -Surgery onboard Bilateral lung masses with possible mets to bone, likely bronchogenic carcinoma -remains on 2-3 L O2 support per baseline -Evaluated by Dr. Modi, radiation oncology. Incomplete, NSCLC [id number] RICH. Also has he has an ill-defined RLL lesion at the base, which is of indeterminate morphology, he also has an adjacent right posterior 9th rib lesion, which is expansile appearing, and may represent metastatic disease versus a chronic fracture? Will require heme/oncology referral at discharge? -Hx of smoking -Pulmonary was consulted and reviewed results with patient in great detail today. Please refer to his note. -Rad/Onc suggestions: Outpatient PET-CT (Dr. Modi is ordering), follow up in office with Dr. Modi after PET, treatment contingent upon PET findings Weakness, physical deconditioning likely acute on chronic -PT 12/13/20: "Pt demonstrating significant improvement in functional mobility this session with NG tube removed and no IVs. Pt completed bed mobility (I), sit<>stands without AD and SBA, ambulation with and without AD with SBA-CGA, no LOB noted however pt with decreased cadance however improving with increased distance. Home with services recommended" -PT/OT while here HTN -Stable -C/w PO amlodipine 5 mg, lisinopril 10 mg, metoprolol 12.5 mg, hydralazine PRN, PAD/AAA stenting -Follows with vascular surgery at [facility] -c/w statin, not on ASA as is on coumadin Hx of RLE DVT -S/p 10 mg coumadin 12/11/20 and to get another 7.5 mg coumadin 12/12/20 -INR 2.39 today, no s/s of bleeding -D/c lovenox BID, start home dose coumadin 2 mg PO nightly -INR daily Hx of COLIN -Unknown if uses home CPAP -Per pulm, noncompliant Hypothyroidism - levothyroxine 25 mcg Neuropathy -Gapapentin RLS - ropinirole Obesity -BMI 34, complicates care GI px -PPI DVT ppx - warfarin nightly, currently therapeutic DISPOSITION: Surgery, rad/onc and pulmonary have been consulted this admission. PT/OT. Plan is discharge home when medically improved VSMacho, I+O VSMacho I+O Laboratory Tests 12/14/20 05:40 Vital Signs Date Time Temp Pulse Resp B/P (MAP) Pulse Ox O2 Delivery O2 Flow Rate FiO2 12/14/20 08:14 79 152/83 12/14/20 07:16 98.0 18 96 Nasal Cannula 3.0 12/11/20 15:00 28 I&O- Last 24 Hours up to 6 AM 12/14/20 05:59 Intake Total 2235 ml Output Total 860 ml Balance 1375 ml THEA CHENG MD December 14, 2020 08:32
[2020-12-14 15:38] VITALS: BP 143/67
[2020-12-14] MEDS: WARFARIN SOD 2MG TAB PO SCH (16:39)
[2020-12-14] MEDS: ATORVASTATIN 10 MG TAB PO SCH (19:12)
[2020-12-14 20:00] VITALS: BP 133/70
[2020-12-14] MEDS: PANTOPRAZOLE 40MG VIAL (C9113 PER 1) IV SCH (20:26)
[2020-12-14 23:10] VITALS: BP 138/73
[2020-12-15] MEDS: IPRATROPIUM 0.5MG/ALBUTEROL 2.5MG INH SOL UD 3ML (DUONEB) NEB SCH ×2 (03:27→07:06)
[2020-12-15] MEDS: LEVOTHYROXINE 25MCG TABLET (0.025MG) PO SCH (05:15)
[2020-12-15] MEDS: SLF 3 ML SYR IV SCH (05:16)
[2020-12-15 06:00] VITALS: BP 134/72
[2020-12-15 06:35] LABS: HEMATOCRIT 36.9 % (42.0-52.0); HEMOGLOBIN 11.8 g/dl (13.5-17.5); MEAN CORPUSCULAR HEMOGLOBIN 30.3 pg (27.0-33.0); MEAN CORPUSCULAR VOLUME 94.6 fl (80.0-96.0); PLATELET COUNT, AUTOMATED 253 10^3/uL (150-450); WHITE BLOOD COUNT 6.9 10^3/uL (4.0-10.0)
[2020-12-15 06:49] LABS: INR 2.56; PROTHROMBIN TIME 28.1 SECONDS (12.5-14.3)
[2020-12-15 07:05] LABS: ALBUMIN 2.5 GM/DL (3.2-5.2); ALT/SGPT 40 U/L (12-78); BILIRUBIN,TOTAL 0.5 MG/DL (0.2-1.0); BLOOD UREA NITROGEN 10 MG/DL (7-18); CALCIUM LEVEL 8.4 MG/DL (8.8-10.2); CARBON DIOXIDE LEVEL 28 MEQ/L (21-32); CHLORIDE LEVEL 107 MEQ/L (98-107); CREATININE FOR GFR 0.75 MG/DL (0.70-1.30); GLOMERULAR FILTRATION RATE > 60.0 (>42); GLUCOSE, FASTING 113 MG/DL (70-100); POTASSIUM SERUM 3.6 MEQ/L (3.5-5.1); SODIUM LEVEL 139 MEQ/L (136-145); TOTAL PROTEIN 5.8 GM/DL (6.4-8.2)
[2020-12-15] MEDS ORDERED: DOK1CAP7 PO (08:06)
[2020-12-15] MEDS ORDERED: PERCOCET PO (08:06)
[2020-12-15] MEDS ORDERED: PANT40TA29 PO (08:06)
[2020-12-15] MEDS: DOCUSATE SODIUM 100MG CAPSULE PO SCH (08:32)
[2020-12-15] MEDS: GABAPENTIN 400MG CAP PO SCH (08:33)
[2020-12-15] MEDS: rOPINIRole 0.25 MG TAB(REQUIP) PO SCH (08:33)
[2020-12-15 08:38] VITALS: BP 134/61
[2020-12-15] MEDS: METOPROLOL TART 12.5 MG PER 1/2 TAB PO SCH (08:38)
[2020-12-15] MEDS: amLODIPine 5 MG TAB PO SCH (08:38)
--- NOTE | 2020-12-15 09:14 | IPNPDOC ---
Text Note Date of Service The patient was seen on 12/15/20. NOTE General surgery Dr Bonner Patient is tolerating regular diet with no nausea or vomiting. Having bowel movements yesterday. States abdominal pain has been controlled. Wound VAC in place. Afebrile, VSS no acute distress. MMM Good air entry bilaterally regular hear rate and rhythm abdomen: still mildly distended but soft, wound VAC removed, midline incision with timo intact, TERRENCE drain left abdomen with serosanguineous fluid. 85 mL drainage from TERRENCE drain yesterday. Assessment/plan Strangulated small bowel from incisional hernia s/p repair as per Dr. Bonner 12/08/20. The patient is reviewed and examined as per Dr. Bonner this morning. The patient reports pain is controlled. Tolerating regular diet Wound VAC removed from midline incision this morning, this appears to be healing well, timo are intact. Continue to keep clean and dry. TERRENCE drain [address] Plan to repeat this in place until outpatient follow-up. From surgical standpoint okay for discharge when medically stable as per Dr. Bonner, this is relayed to the hospitalist. Plan to discharge with TERRENCE drain intact and for outpatient follow-up next week in the office. VS,Fishbone, I+O VS, Fishbone, I+O Laboratory Tests 12/15/20 06:09 Vital Signs Date Time Temp Pulse Resp B/P (MAP) Pulse Ox O2 Delivery O2 Flow Rate FiO2 12/15/20 07:35 3.0 12/15/20 06:00 98.9 81 20 134/72 (92) 95 Nasal Cannula 12/11/20 15:00 28 I&O- Last 24 Hours up to 6 AM 12/15/20 06:00 Intake Total 1360 ml Output Total 890 ml Balance 470 ml Shirlene Lopez December 15, 2020 08:08 IRASEMA BONNER MD December 29, 2020 05:01
--- NOTE | 2020-12-15 16:48 | DS.PDOC ---
Discharge Summary General Date of Admission December 06, 2020 at 20:39 Date of Discharge 12/15/2020 Attending Physician: THEA CHENG MD Discharge Summary PROCEDURES PERFORMED DURING STAY: Exploratory laparotomy with bowel resection and repair of incisional hernia on 12/08/[address] Mike ADMITTING DIAGNOSES: Strangulated large ventral hernia Lung mass DISCHARGE DIAGNOSES: Strangulated large ventral hernia Lung masses highly suspicious for malignancy COPD on 3L at home Hx of RLE DVT on warfarin Hypothyroidism RLS PAD s/p stenting and bypass surgeries History of AAA s/p stent HTN Hypercholesterolemia COMPLICATIONS/CHIEF COMPLAINT: Bowel Obstruction,Incarcerated Hernia,Lung Mass. HISTORY OF PRESENT ILLNESS: 1-year-old M with a past medical history of COPD on 3 L, per peripheral arterial disease, AAA status post pending,likely aortobifemoral bypass, hypertension, hypercholesterolemia and large ventral hernias who presented with sudden onset worsening abdominal pain, worse in the right lateral area to the umbilicus with one episode of nonbloody, nonbilious vomiting without any blood per rectum, chest pain, shortness of breath, fevers or chills. HOSPITAL COURSE: CT in the ED, showed an incarcerated and strangulated hernia, closed loop obstruction suspicion for ischemic bowel changes at the site of large ventral hernia at R lateral umbilical aspect. Superior to umbilicus, second hernia with transverse colon narrowing with partial obstruction. Further, CT of the chest showed evidence for COPD, emphysematous changes as well as a 5 cm lung mass in the left mid field as well as at the right lung base measuring 4 cm in diameter, with a possible late lytic lesion of the right ninth rib. Surgery was consulted from the ER, reviewed CT images and did not suspect that to be a closed loop obstruction on revision of CT images, and recommended admission to medicine and conservative management for 24 hours with placement of NG tube. On 12/08 his symptoms were worse taken to the OR by Dr. Mike for strangulated abdominal hernia with SBO and had a small bowel resection and incisional hernia repair and had a wound van in place as well as 2 TERRENCE drains. He was briefly in the ICU postop and continued to do well and 1JP drain was discontinued he clinically improved with +flatus, +BMs and tolerated diet up to a regular diet. He was deemed safe for home discharge from a surgical standpoint on 12/15 and will follow up with surgery outpatient in 7d. Of note, during investigations, he was found to have bilateral lung masses with possible mets to bone with c/f NSCLC. He particularly had a spiculated 5 cm RICH mass convincing for malignancy, as well as an ill-defined mass in the RLL and an expansile lesion in the right posterior 9th rib. Radiation oncology was consulted by Dr. Atkins for management recommendations for this highly likely new lung cancer. On evaluation by Dr. Modi he identified that he has a large RICH lesion which is spiculated and new since his prior CT chest from 2018 and given his history is certainly cancer, and almost certainly NSCLC. If this lesion were to present in isolation, given his poor PS, and poor condition of t he lung parenchyma (blebs, emphysematous changes etc.), he would consider treatment with SBRT without a biopsy but given that he has an ill-defined RLL lesion at the base, which is of indeterminate morphology, and also has an adjacent right posterior 9th rib lesion, which is expansile appearing, and may represent metastatic disease versus a chronic fracture. Dr. Modi therefore decided to clarify the extent of disease and stage him (and possibly identify a target for biopsy less risky than the lung lesion) and therefore planned to order a PET-CT for Mr. Felton and following up after the scan for decision making. The PET is ordered and he was given Dr. Modi's contact information to make an appointment after imaging is completed. DISCHARGE MEDICATIONS: Please see below. ALLERGIES: Please see below. PHYSICAL EXAMINATION ON DISCHARGE: VITAL SIGNS: Please see below. General: NAD, AAO x 3 HEENT: PERRLA, EOMI, sclerae clear, NC in place Neck: supple, normal ROM, no JVD Respiratory: decreased crackles in bilateral lung bases, air entry fair, limited by body positioning CVS: RRR, normal S1, S2, no murmurs Abdomen: large vertical abd wound with wound vac in place, 1 TERRENCE drain secured with small amount of red serosanguinous fluid. BS normoactive, nontender, no rigidity, no guarding Extremities: no edema, cyanosis or clubbing MSK: R 1-5 toes amp. Chronic venous stasis changes. Pulses 1+ bilaterally Neuro: no focal neuro deficits, moving all 4 extremities, CN2-12 intact. Strength 5/5 in all 4 extremities. Psych: calm, cooperative LABORATORY DATA: Please see below IMAGING: AbdXR 12/12/20: Once again, there is a small bowel dilatation essentially unchanged possibly increased slightly from the prior exam. Postoperative change noted status quo. There is no evidence of angelito intestinal obstruction. Small amount of radiographic contrast is seen in the rectosigmoid region. KUB 12/07/20: KUB shows the intestinal gas pattern to be nonspecific. There are multiple dilated gas-filled small bowel loops with a paucity if not absence of gas in the rectal region. The organ silhouettes insofar as delineated are unremarkable. There is no evidence of free intraperitoneal air. CT abd/ pelvis with IV contrast (12/06/20): 1. 10 cm anterior abdominal wall hernia above the level of the umbilicus demonstrating a portion of the mid transverse colon and severe narrowing of the colon as it traverses into the hernia/partial obstruction. 2. 17 x 10 x 9 cm abdominal wall hernia to the right of the umbilicus and demonstrating nondistended loops of small bowel and a single loop of small bowel demonstrating severe distension with fluid and edema along the margins very suspicious for ischemic changes. This is all consistent with closed loop obstruction/incarcerated hernia. There is a small amount of free fluid along the right side of this large hernia abutting herniated mesentery and distended small bowel. The ileum distal to this is decompressed all consistent with a transition zone and complete obstruction. Hernia with incarceration and strangulation. CT chest with IV contrast (12/06/20): 1. Severe changes of COPD, emphysema, and scarring. 2. Possible lytic lesion of the posterior aspect of the right 9th rib. 3. 5 cm x 3.8 cm oval mass at the left mid lung field consistent with a malignant mass. Probable additional mass at the right lung base measuring 4 cm x 2.3 cm. CXR (12/06/20): There is a 5 cm mass in the lower left lung. There may be some mild atelectasis or infiltrate in the right lung base. PROGNOSIS: Good ACTIVITY: As tolerated DIET: Regular DISCHARGE PLAN: Home with close surgery follow up DISPOSITION: 06 Home Health Service. DISCHARGE INSTRUCTIONS: 1. Please follow up with the surgeon as instructed. Please go to your PET-CT a ppointment as scheduled by Dr. Modi and thereafter should make an appointment with him for follow up. ITEMS TO FOLLOWUP ON ON OUTPATIENT: Abdominal surgery follow up Lung masses DISCHARGE CONDITION: Stable TIME SPENT ON DISCHARGE: 64 minutes. Vital Signs/I&Os Vital Signs Date Time Temp Pulse Resp B/P (MAP) Pulse Ox O2 Delivery O2 Flow Rate FiO2 12/15/20 08:38 100 134/61 12/15/20 07:35 3.0 12/15/20 06:00 98.9 20 95 Nasal Cannula 12/11/20 15:00 28 I&O- Last 24 Hours up to 6 AM 12/15/20 06:00 Intake Total 1360 ml Output Total 890 ml Balance 470 ml Laboratory Data Labs 24H Laboratory Tests 2 12/15/20 06:09: Nucleated Red Blood Cells % (auto) 0.0, Prothrombin Time 28.1H, Prothromb Time International Ratio 2.56, Anion Gap 4L, Glomerular Filtration Rate > 60.0, Calcium Level 8.4L, Total Bilirubin 0.5, Aspartate Amino Transf (AST/SGOT) 30, Alanine Aminotransferase (ALT/SGPT) 40, Alkaline Phosphatase 53, Total Protein 5.8L, Albumin 2.5L, Albumin/Globulin Ratio 0.8 CBC/BMP Laboratory Tests 12/15/20 06:09 Microbiology Microbiology 12/06/20 Blood Culture - Final, Complete NO GROWTH AFTER 5 DAYS 12/06/20 Blood Culture - Final, Complete NO GROWTH AFTER 5 DAYS Discharge Medications Scheduled Amlodipine Besylate (Amlodipine Besylate) 5 Mg Tablet, 5 MG PO DAILY, (Reported) Atorvastatin Calcium (Atorvastatin Calcium) 10 Mg Tablet, 10 MG PO QPM, (Reported) Docusate Sodium (Dok) 100 Mg Capsule, 100 MG PO BID Gabapentin (Gabapentin) 400 Mg Capsule, 400 MG PO TID, (Reported) Levothyroxine Sodium (Levothyroxine Sodium) 25 Mcg Tablet, 25 MCG PO DAILY, (Reported) Lisinopril (Lisinopril) 10 Mg Tablet, 10 MG PO DAILY, (Reported) Metoprolol Tartrate (Metoprolol Tartrate) 25 Mg Tablet, 12.5 MG PO DAILY, (Reported) Pantoprazole Sodium (Pantoprazole Sodium) 40 Mg Tablet.dr, 1 TAB PO DAILY Ropinirole HCl (Ropinirole HCl) 0.5 Mg Tablet, 0.5 MG PO DAILY, (Reported) Warfarin Sodium (Warfarin Sodium) 2 Mg Tablet, 2 MG PO QPM, (Reported) Scheduled PRN Hydrocodone/Acetaminophen (Hydrocodone-Acetamin 5-325 mg) 1 Each Tablet, 1 TAB PO Q8H PRN for PAIN, (Reported) Oxycodone/Acetaminophen (Oxycodone-Acetaminophen 5-325) 1 Each Tablet, 1 TAB PO Q4HP PRN for MODERATE PAIN (PS 5-7) Allergies Coded Allergies: NSAIDS (Non-Steroidal Anti-Inflamma (Verified Allergy, Unknown, 12/06/20) THEA CHENG MD December 15, 2020 16:48
== END 2020-12-15 12:57 | disposition home health service (06) | DRG 330 ==
LOC: M ED 13:30 → M ED INP 20:39 → ENRESERV 12-07 19:04 → M PCU 12-07 20:15 → M ICU 12-08 21:53 → M PCU 12-09 17:32 → M MSPAV 12-14 23:08
PROVIDERS: ADMIT Family Medicine; ATTEND Internal Medicine
PROC: 0DNU0ZZ Release Omentum, Open Approach (ICD-10-PCS; 2020-12-08)
PROC: 0WQF0ZZ Repair Abdominal Wall, Open Approach (ICD-10-PCS; 2020-12-08)
PROC: 0WUF0JZ Supplement Abdominal Wall with Synthetic Substitute, Open Approach (ICD-10-PCS; 2020-12-08)
PROC: 0DBL0ZZ Excision of Transverse Colon, Open Approach (ICD-10-PCS; principal; 2020-12-08 17:00)
DX: K43.0 Incisional hernia with obstruction, without gangrene (principal); J96.11 Chronic respiratory failure with hypoxia; K56.609 Unspecified intestinal obstruction, unspecified as to partial versus complete obstruction; E03.9 Hypothyroidism, unspecified; I10 Essential (primary) hypertension; E78.00 Pure hypercholesterolemia, unspecified; R91.8 Other nonspecific abnormal finding of lung field; G25.81 Restless legs syndrome; J43.9 Emphysema, unspecified; Z79.01 Long term (current) use of anticoagulants; Z86.718 Personal history of other venous thrombosis and embolism; Z79.899 Other long term (current) drug therapy; Z88.6 Allergy status to analgesic agent; Z87.891 Personal history of nicotine dependence; G62.9 Polyneuropathy, unspecified; G47.33 Obstructive sleep apnea (adult) (pediatric); E66.9 Obesity, unspecified; Z68.34 Body mass index [BMI] 34.0-34.9, adult

== ENCOUNTER 2020-12-19 20:54 | Emergency (ER) | payer MEDICARE, MEDICAID ==
[~2020-12-19] VITALS: Ht 172.7 cm; Wt 102.7 kg
[~2020-12-19 20:54] MED LIST: AMLO1TAB24 PO; ATOR1TAB19 PO; DOK1CAP7 PO; GABA-283 PO; HYDR-3713 PO; LEVO25TA5 PO; LISI10TA22 PO; METO1TAB87 PO; PANT40TA29 PO; PERCOCET PO; ROPI0.5T3 PO; WARF4TAB51 PO
[2020-12-20] MEDS: GASTROGRAFIN SOLUTION 30ML PO SCH ×2 (01:15→01:45)
[2020-12-20 01:24] LABS: BASO # 0.1 10^3/uL (0.0-0.2); BASO % 0.9 % (0.0-1.0); EOS # 0.1 10^3/uL (0.0-0.5); EOS % 1.3 % (0.0-3.0); HEMATOCRIT 40.1 % (42.0-52.0); HEMOGLOBIN 12.6 g/dl (13.5-17.5); LYMPH # 1.4 10^3/uL (1.5-5.0); LYMPH % 13.6 % (24.0-44.0); MEAN CORPUSCULAR HGB CONC 31.4 g/dl (32.0-36.5); MEAN CORPUSCULAR VOLUME 95.5 fl (80.0-96.0); MONO # 0.8 10^3/uL (0.0-0.8); NEUTROPHILS # 7.6 10^3/uL (1.5-8.5); PLATELET COUNT, AUTOMATED 330 10^3/uL (150-450); WHITE BLOOD COUNT 10.1 10^3/uL (4.0-10.0)
[2020-12-20 01:35] LABS: INR 1.76; PROTHROMBIN TIME 20.9 SECONDS (12.5-14.3)
[2020-12-20 01:40] LABS: PARTIAL THROMBOPLASTIN TIME 32.2 SECONDS (24.2-38.5)
[2020-12-20 01:51] LABS: ALBUMIN 2.9 GM/DL (3.2-5.2); ALT/SGPT 23 U/L (12-78); BILIRUBIN,DIRECT 0.2 MG/DL (0.0-0.2); BILIRUBIN,TOTAL 0.5 MG/DL (0.2-1.0); BLOOD UREA NITROGEN 13 MG/DL (7-18); CALCIUM LEVEL 8.2 MG/DL (8.8-10.2); CARBON DIOXIDE LEVEL 26 MEQ/L (21-32); CHLORIDE LEVEL 106 MEQ/L (98-107); CREATININE FOR GFR 0.87 MG/DL (0.70-1.30); GLOMERULAR FILTRATION RATE > 60.0 (>42); GLUCOSE, FASTING 111 MG/DL (70-100); POTASSIUM SERUM 4.2 MEQ/L (3.5-5.1); SODIUM LEVEL 140 MEQ/L (136-145)
[2020-12-20] MEDS ORDERED: ISOVUE-370 76% 100ML VIAL As Ordered ONE ×2 (02:14→02:16)
--- NOTE | 2020-12-20 03:57 | REPVR ---
PROCEDURE INFORMATION: Exam: CT Abdomen With Contrast Exam date and time: 12/20/2020 2:44 AM Age: 70 years old Clinical indication: Other: Post surgical drain dehiscence, now with abdominal distenti TECHNIQUE: Imaging protocol: Computed tomography images of the abdomen with intravenous contrast. Radiation optimization: All CT scans at this facility use at least one of these dose optimization techniques: automated exposure control; mA and/or kV adjustment per patient size (includes targeted exams where dose is matched to clinical indication); or iterative reconstruction. Contrast material: ISOVUE 370; Contrast volume: 100 ml; Contrast route: INTRAVENOUS (IV); COMPARISON: CT ABD/PEL W/IV ORAL CONTRAS 12/06/2020 5:25 PM FINDINGS: Lungs: Bibasilar bullous change which is primarily subpleural with coarse interstitium and mild fibro-atelectatic change. There is a calcified granuloma in the lateral left lower lobe. There is focal atelectasis or consolidation in the posterior right lower lobe and adjacent pulmonary nodules which measure up to 12 mm. The consolidation or mass measures approximately 3.8 x 1.7 x 3.2 cm. Pleural space: Mild left pleural effusion. Liver: The liver attenuation is 64 Hounsfield units and the spleen is 108 Hounsfield units. Gallbladder and bile ducts: The gallbladder is contracted with no stones. Pancreas: Normal. No ductal dilation. Spleen: Normal. No splenomegaly. Adrenals: Normal. No mass. Kidneys and ureters: There are bilateral renal cysts measuring up to 13 mm on the right. Parenchymal loss in the lower pole of the kidneys bilaterally, left greater than right. Stomach and bowel: Small bowel anastomosis is noted in the midline anterior lower abdomen. Appendix: There are no changes of appendicitis. A normal appendix is not seen. Intraperitoneal space: Unremarkable. No free air. No significant fluid collection. Lymph nodes: Unremarkable. No enlarged lymph nodes. Vasculature: There is a right axillofemoral graft and fem-fem graft. There is an anterior abdominal wall incision with skin timo with underlying infiltration and gas with a drain extending through the area. Aortic occlusion just below a left renal artery. Residua of old occluded aorto bi-iliac graft. Bones/joints: Expansile lytic lesion of the right 10th rib posteriorly with residua of pathologic fracture. Facet arthropathy of the lower lumbar spine. Soft tissues: Infiltration of lower abdominal mesenteric fat beneath the anterior abdominal wall incision as well as the transverse mesocolon and omentum consistent with postsurgical change. IMPRESSION: 1. Findings consistent with recent surgery with vertical skin timo in the anterior abdominal wall with subcutaneous infiltration and gas and trace fluid within the subcutaneous fat. A drain extends through the anterior abdominal wall in the area of the incision. 2. Infiltration of mesenteric fat as well as transverse mesocolon and omentum consistent with recent surgery. 3. Mild left pleural effusion, increased since 12/06/2020 with bibasilar bullous change, coarse interstitium and scattered fibro-atelectatic change. There is a focus of mass or consolidation in the posterior right lower lobe with surrounding or adjacent nodular densities which is similar to the prior study and may reflect metastasis or primary lesion There is adjacent lytic lesion of the right 10th rib posteriorly with residua of pathologic fracture which is also unchanged. 4. Occlusion of the abdominal aorta below the renal arteries and probably occluded aorto bi-iliac graft. There is a patent right axillofemoral graft with fem-fem graft. 5. Fatty infiltration of the liver. 6. Parenchymal loss in the lower pole of the kidneys, left greater than right. COMMENTS: Consistent with the [employer]'s Incidental Findings Committee white paper (J Am Ning Radiol 2018): Any incidental renal lesion less than 1 cm or classified as too small to characterize, or any incidental cystic renal lesion characterized as simple-appearing, is likely benign. No follow-up imaging is recommended for these lesions per consensus recommendations based on imaging criteria. Electronically signed by: Darion Rhoades On 12/20/2020 03:56:52 AM
[2020-12-20] MEDS ORDERED: AUGMENTIN 875 MG TAB PO ONE (06:55)
[2020-12-20] MEDS ORDERED: AUGM875T28 PO (07:00)
[2020-12-20 08:45] VITALS: BP 160/87
== END 2020-12-20 08:29 | disposition home or self-care (01) ==
LOC: M ED 20:54
DX: T85.698A Other mechanical complication of other specified internal prosthetic devices, implants and grafts, initial encounter (principal); Y92.9 Unspecified place or not applicable; Y93.9 Activity, unspecified; K76.0 Fatty (change of) liver, not elsewhere classified; Z79.01 Long term (current) use of anticoagulants; Z79.899 Other long term (current) drug therapy; Z88.6 Allergy status to analgesic agent
CPT/HCPCS: 74160; 80048; 80076; 83605; 85025; 85610; 85730; 93041; 99285; Q9963; Q9967

== ENCOUNTER → 2020-12-31 | Outpatient (CLI) | payer MEDICARE, MEDICAID ==
[~2020-12-31] MED LIST changes: +AUGM875T28 PO
--- NOTE | 2020-12-31 10:59 | REPVR ---
PROCEDURE INFORMATION: Exam: CT Abdomen And Pelvis Without Contrast Exam date and time: 12/31/2020 9:41 AM Age: 70 years old Clinical indication: Condition or disease; Hernia; Complications not specified; Additional info: Incisional hernia without obstruction or gang TECHNIQUE: Imaging protocol: Computed tomography of the abdomen and pelvis without contrast. Radiation optimization: All CT scans at this facility use at least one of these dose optimization techniques: automated exposure control; mA and/or kV adjustment per patient size (includes targeted exams where dose is matched to clinical indication); or iterative reconstruction. COMPARISON: CT ABD W/IV PO CONTRAST 12/20/2020 2:32 AM FINDINGS: Detailed evaluation of the abdominal and pelvic viscera is somewhat limited in the absence of intravenous contrast. Lungs: COPD, interstitial disease, chronic granulomatous disease. Lingular and right lower lobe airspace disease with a nodular component again demonstrated. Left pleural effusion. Coronary artery calcification. Liver: Fatty infiltration of the liver and poorly characterized subcentimeter nodular hypodensities. Gallbladder and bile ducts: No cholelithiasis or biliary ductal dilatation. Pancreas: No pancreatic mass or ductal dilatation. Spleen: Splenic granulomata. Adrenal glands: Unremarkable adrenals. Kidneys and ureters: Renal cysts again demonstrated, which were better visualized on the previous contrast enhanced exam. 1 mm nonobstructing right renal calculus. Mild infiltration of perinephric fat. Stomach and bowel: Wall thickening in the nondistended stomach. Postoperative change in the small bowel again demonstrated. Prominent stool. Appendix: Nonvisualization of the appendix. Intraperitoneal space: Persistent infiltration of mesenteric fat, without significant free fluid. Vasculature: Vascular bypass again demonstrated along with extensive vascular calcification. Previously visualized occlusion of the infrarenal abdominal aorta is poorly evaluated on the non-contrast exam. Lymph nodes: Subcentimeter lymph nodes. Urinary bladder: Mild bladder wall thickening. Reproductive: Punctate prostate calcification. Bones/joints: Expansile lytic lesion and pathologic fracture of the right 9th posterior rib again demonstrated. Degenerative change and disc bulging. Soft tissues: Interval development of 15.9 x 3 I 0.9 x 13.7 cm subcutaneous fluid collection in the anterior abdominal wall with small focus of internal air, surrounding infiltration of subcutaneous fat, and skin thickening. Interval removal of subcutaneous drain previously visualized in the anterior abdominal wall. Fat containing ventral wall hernia in the midline. Midline skin timo. IMPRESSION: 1. 1 mm nonobstructing right renal calculus. 2. Wall thickening in the nondistended stomach. 3. Interval development of 15.9 x 3 I 0.9 x 13.7 cm subcutaneous fluid collection in the anterior abdominal wall with small focus of internal air, surrounding infiltration of subcutaneous fat, and skin thickening. 4. Expansile lytic lesion and pathologic fracture of the right 9th posterior rib again demonstrated. 5. COPD, interstitial disease, chronic granulomatous disease. Lingular and right lower lobe airspace disease with a nodular component again demonstrated. Left pleural effusion. 6. Additional findings as described above. Electronically signed by: Poncho Moreira On 12/31/2020 10:59:00 AM
== END ==
LOC: M RAD 09:30
PROVIDERS: ATTEND Surgery
DX: K43.2 Incisional hernia without obstruction or gangrene (principal); J84.10 Pulmonary fibrosis, unspecified; J90 Pleural effusion, not elsewhere classified; I25.10 Atherosclerotic heart disease of native coronary artery without angina pectoris; K76.0 Fatty (change of) liver, not elsewhere classified; K76.89 Other specified diseases of liver; N20.0 Calculus of kidney; R18.8 Other ascites; J44.9 Chronic obstructive pulmonary disease, unspecified

== ENCOUNTER → 2021-01-10 | Outpatient (CLI) | payer MEDICARE, MEDICAID ==
--- NOTE | 2021-01-11 11:55 | REP ---
INDICATION: LEFT UPPER LOBE LUNG CANCER C34.12. COMPARISON: Prior PET-CT 05/12/2010, prior CT abdomen and pelvis 12/20 and 12/31/2020. Prior CT chest 12/06/2020 TECHNIQUE: After the intravenous administration of 9.81 mCi of FDG 18 triplane whole-body PET-CT was performed from the skull base to the mid thigh. FINDINGS: In the left lung apical region seen medially and pleural based there is an irregular nodular density which is hypermetabolic having a maximal SUV value of 5.61. Also in the left upper lobe region there is an isolated 1.3 cm sized nodule which is also hypermetabolic having maximal SUV value of 4.59. There is rather extensive pleural hypermetabolism seen in the posterior left upper lobe and having maximal SUV value of 7.96. Is seen at the same level and inferiorly along the lateral and posterior chest wall there is additional pleural based hypermetabolism with maximal SUV value of 7.98. The spiculated mass seen in the left upper lobe abutting the major fissure on the prior chest CT is hypermetabolic with a maximal SUV value of 11.3. In the right lower lobe the asymmetric density a portion of which is pleural based seen on that prior CT is also hypermetabolic having maximal SUV value of 4.66. The lytic lesion seen on the right at that level involving the posterior 9th rib is hypermetabolic with a maximal SUV value of 8.71. There are 2 additional pleural based foci of abnormal hypermetabolism seen within the left posterior diaphragm having maximal SUV values of 5.63. There is a left pleural effusion with foci of hypermetabolism ranging from maximal values of 2.5-3.25. Hypermetabolic activity is seen surrounding a known postoperative anterior abdominal subcutaneous seroma and consistent with inflammatory change. There are scattered areas of hypermetabolic foci seen in the axial skeleton ranging from 2.5 the 3.47. No other areas of abnormal hypermetabolic activity is seen in the neck, chest, abdomen, or pelvis. IMPRESSION: 1. Abnormal hypermetabolic activity seen in the chest, as described above, consistent with neoplasm. 2. There is a known left pleural effusion with foci of hypermetabolism with a maximal SUV value of 3.25 3. There is evidence of skeletal metastasis as described above. 4. Other findings as discussed in detail as described above. <Electronically signed by Moisés Aj > 01/11/21 [id number]
== END ==
LOC: M PLARAD 07:31
PROVIDERS: ATTEND General Practice
DX: C34.12 Malignant neoplasm of upper lobe, left bronchus or lung (principal); J90 Pleural effusion, not elsewhere classified
CPT/HCPCS: 78815; A9552

== ENCOUNTER → 2021-01-24 | Outpatient (CLI) | payer MEDICARE, MEDICAID ==
[~2021-01-24] MED LIST changes: +ALBU83IN INH; +D31000TA2 PO; +TREL1AER INH
[2021-01-24 12:56] LABS: HEMATOCRIT 44.1 % (42.0-52.0); HEMOGLOBIN 14.3 g/dl (13.5-17.5); MEAN CORPUSCULAR HEMOGLOBIN 29.7 pg (27.0-33.0); MEAN CORPUSCULAR HGB CONC 32.4 g/dl (32.0-36.5); MEAN CORPUSCULAR VOLUME 91.7 fl (80.0-96.0); PLATELET COUNT, AUTOMATED 308 10^3/uL (150-450); RED BLOOD COUNT 4.81 10^6/uL (4.30-6.10); WHITE BLOOD COUNT 10.5 10^3/uL (4.0-10.0)
[2021-01-24 13:07] LABS: INR 1.38; PROTHROMBIN TIME 17.3 SECONDS (12.5-14.3)
[2021-01-24 13:08] LABS: PARTIAL THROMBOPLASTIN TIME 37.7 SECONDS (24.2-38.5)
== END ==
LOC: M LAB 12:05
PROVIDERS: ATTEND General Practice
DX: Z01.812 Encounter for preprocedural laboratory examination (principal); Z86.718 Personal history of other venous thrombosis and embolism; Z79.01 Long term (current) use of anticoagulants

== ENCOUNTER → 2021-01-27 | Outpatient (CLI) | payer MEDICARE, MEDICAID ==
[~2021-01-27] MED LIST changes: +LIDOCAINE 1% MDV 20ML VIAL As Ordered ONE
[2021-01-27 10:46] LABS: INR 0.96
[2021-01-27 12:24] VITALS: BP 160/85
--- NOTE | 2021-01-27 16:11 | REP ---
INDICATION: RIGHT RIB LESION. COMPARISON: None. TECHNIQUE: The procedure was performed under the direct supervision of Dr. Velzi. The patient has a history of a hypermetabolic right rib lesion seen on a previous PET scan dated 01/10/2021. The risks and benefits of the procedure were explained to the patient and informed consent was obtained. The right rib lesion was localized using CT guidance. The skin was prepped and draped in a sterile fashion. 1% lidocaine was used as a local anesthetic. Using CT guidance a 19/20 gauge coaxial needle biopsy system was inserted and advanced into the lesion 5 core biopsy samples were obtained and sent to the lab. The patient tolerated the procedure well there were no immediate complications. After the appropriate amount to monitor convalescence the patient was discharged from the department. FINDINGS: None IMPRESSION: CT-guided right rib lesion biopsy. <Electronically signed by Artur Farfan > 01/27/21 [id number] <Electronically signed by Ramses Veliz > 01/27/21 [id number]
== END ==
LOC: M IRPRO 09:06
PROVIDERS: ATTEND General Practice
DX: C41.3 Malignant neoplasm of ribs, sternum and clavicle (principal); Z79.01 Long term (current) use of anticoagulants

== ENCOUNTER → 2021-01-31 | Outpatient (CLI) | payer MEDICARE, MEDICAID ==
[~2021-01-31] MED LIST changes: -LIDOCAINE 1% MDV 20ML VIAL As Ordered ONE
--- NOTE | 2021-01-31 08:25 | REP ---
INDICATION: POST PROCEDURE HEMATOMA COMPARISON: CT dated 12/31/2020 TECHNIQUE: Directed real time B-mode chaves scale ultrasound examination using curved array transducer. FINDINGS: Directed ultrasound examination of the lower abdomen in the supraumbilical to infraumbilical region demonstrates a 12.3 x 1.5 x 13.6 cm simple fluid collection superficial to the underlying surgical mesh likely representing seroma/hematoma. Collection appears decreased in size when compared with CT dated 12/31/2020. IMPRESSION: Findings suggest postsurgical seroma/hematoma in the subcutaneous tissue appearing decreased in size as compared to most recent CT. <Electronically signed by Nasir Sun > 01/31/21 [id number]
== END ==
LOC: M RAD 07:28
PROVIDERS: ATTEND Surgery
DX: K91.870 Postprocedural hematoma of a digestive system organ or structure following a digestive system procedure (principal)

== ENCOUNTER 2021-02-14 18:55 | Inpatient (IN) | payer MEDICARE, MEDICAID ==
[2021-02-14] VITALS (24 sets, daily range): BP systolic 85–140; BP diastolic 55–80
[~2021-02-14] VITALS: Ht 172.7 cm; Wt 101.6 kg
--- NOTE | 2021-02-14 19:40 | REP ---
INDICATION: DYSPNEA/COUGH. COMPARISON: 12/11/2020 TECHNIQUE: Portable FINDINGS: The technique utilized in obtaining the radiograph has magnified the cardiac silhouette and accentuated the interstitial markings. There is near complete opacification of the left lung with a small amount of aerated lung in the apical region. This represents a significant change compared to the prior exam. Patchy opacities are seen in the right lung base which have developed since the last exam. There is chronic right CP angle blunting. The left heart border is completely sella widened out by the aforementioned opacity. There is no change in the osseous structures. IMPRESSION: Large left pleural effusion with probable subsegmental atelectatic change. Certainly, pneumonia cannot be ruled out. There are also new right lower lobe opacities suspicious for pneumonia. <Electronically signed by Moisés Aj > 02/14/211935
[2021-02-14 20:31] LABS: BASO # 0.1 10^3/uL (0.0-0.2); BASO % 0.4 % (0.0-1.0); HEMATOCRIT 42.2 % (42.0-52.0); HEMOGLOBIN 13.5 g/dl (13.5-17.5); LYMPH # 0.5 10^3/uL (1.5-5.0); LYMPH % 3.6 % (24.0-44.0); MEAN CORPUSCULAR HEMOGLOBIN 28.7 pg (27.0-33.0); MEAN CORPUSCULAR VOLUME 89.6 fl (80.0-96.0); MONO # 0.7 10^3/uL (0.0-0.8); MONO % 5.2 % (2.0-8.0); NEUTROPHILS # 12.1 10^3/uL (1.5-8.5); NEUTROPHILS % 88.6 % (36.0-66.0); PLATELET COUNT, AUTOMATED 401 10^3/uL (150-450); RED BLOOD COUNT 4.71 10^6/uL (4.30-6.10); WHITE BLOOD COUNT 13.7 10^3/uL (4.0-10.0)
[2021-02-14] MEDS ORDERED: WARFARIN SOD 2MG TAB PO SCH (21:00)
[2021-02-14] MEDS ORDERED: WARFARIN SOD 1MG TAB PO SCH (21:00)
[2021-02-14] MEDS: GABAPENTIN 400MG CAP PO SCH (21:00)
[2021-02-14 21:05] LABS: ALBUMIN 2.9 GM/DL (3.2-5.2); ALT/SGPT 70 U/L (12-78); BILIRUBIN,DIRECT 0.2 MG/DL (0.0-0.2); BILIRUBIN,TOTAL 0.7 MG/DL (0.2-1.0); BLOOD UREA NITROGEN 41 MG/DL (7-18); CALCIUM LEVEL 9.2 MG/DL (8.8-10.2); CARBON DIOXIDE LEVEL 27 MEQ/L (21-32); CHLORIDE LEVEL 98 MEQ/L (98-107); CK-MB VALUE MASS 7.3 NG/ML (<3.6); CPK CREATINE PHOSPHOKINASE 99 U/L (39-308); CREATININE FOR GFR 1.15 MG/DL (0.70-1.30); GLOMERULAR FILTRATION RATE > 60.0 (>42); GLUCOSE, FASTING 154 MG/DL (70-100); MB/CK RELATIVE INDEX 7.37 (< OR =4); NT-PRO BNP 3718 PG/ML (<125); POTASSIUM SERUM 5.4 MEQ/L (3.5-5.1); SODIUM LEVEL 134 MEQ/L (136-145); TOTAL PROTEIN 6.6 GM/DL (6.4-8.2); TROPONIN I 0.49 NG/ML (< 0.10)
[2021-02-14] MEDS ORDERED: cefTRIAXone SOD 1 GM in D5W MINI-BAG PLUS 50 ML IV ONE (21:35)
--- NOTE | 2021-02-14 21:44 | ECGEPIP ---
[facility] - ED Test Date: 2021-02-14 Pat Name: MIC MCNAMARA Department: Room: - Gender: Male Information Technology Account Manager: ANDRA : 1950 Requested By: BERNICE Gonzalez Order Number: [id number] Reading MD: Marizol Lares Measurements Intervals [place] Rate: 91 P: -15 TX: 82 QRS: 57 QRSD: 84 T: -24 QT: 364 QTc: 447 Interpretive Statements Sinus rhythm with short TX Possible Anterior infarct , age undetermined NSTTW abnormalities increased rate 12/06/20 Electronically Signed on 02-14-2021 21:44:19 EDT by Marizol Lares
[2021-02-14] MEDS ORDERED: ACETAMINOPHEN TAB 650MG DOSE (2X325MG) PO PRN (22:05)
[2021-02-14] MEDS ORDERED: BISACODYL 10 MG SUPP PR PRN (22:05)
[2021-02-14] MEDS ORDERED: LEVALBUTEROL 1.25 MG/0.5 ML CONCENTRATE NEB NEB PRN (22:05)
[2021-02-14] MEDS ORDERED: ONDANSETRON 4MG/2ML VIAL IV PRN (22:05)
[2021-02-14] MEDS ORDERED: KCL 20MEQ IN D5/NS 1000ML 1,000 ML IV SCH (22:05)
[2021-02-14] MEDS ORDERED: PERCOCET 5MG/325MG TAB PO PRN ×2 (22:05→22:50)
[2021-02-14] MEDS ORDERED: WARF4TAB52 PO (22:40)
[2021-02-14] MEDS ORDERED: DOCU100C16 PO (22:40)
[2021-02-14] MEDS ORDERED: OXYC1TAB23 PO (22:40)
[2021-02-14] MEDS ORDERED: PROAAER10 INH (22:40)
[2021-02-14] MEDS ORDERED: WARF4TAB51 PO (22:40)
[2021-02-14] MEDS ORDERED: ALBU83IN INH (22:40)
[2021-02-14] MEDS ORDERED: MIDAZOLAM INJ 2MG/2ML VIAL (J2250 PER 1MG) As Ordered ONE ×3 (22:41→22:43)
[2021-02-14] MEDS ORDERED: flumazeniL 0.5 MG/5 ML VIAL As Ordered ONE (22:41)
[2021-02-14] MEDS ORDERED: LIDOCAINE 1% MDV 20ML VIAL As Ordered ONE ×2 (22:42→22:51)
--- NOTE | 2021-02-14 22:46 | HPEPDOC ---
[facility] Medical History & Physical Date of Admission Feb 14, 2021 Date of Service: Feb 14, 2021 Attending Physician: FORREST BERNAL MD History and Physical TIME OF SERVICE: 10:50 PM CHIEF COMPLAINT: Shortness of breath HISTORY OF PRESENT ILLNESS: The history is obtained via chart review the patient received Versed prior to placement of a chest tube and was sedated at the time of my exam. Mr. 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 Morgan, who planned to start palliative pembrolizumab pending the PD-L1 results because his ECOG status was too low for him to tolerate chemo. Earlier on during the day the patient's family called EMS because they noticed that the patient was not breathing. When EMS arrived they noticed that the patient was breathing 4 breaths/min and started ventilating him with bag and mask. Thereafter his O2 sats increased to the 60s and they transitioned him to CPAP there after his O2 sats increased to the 80s. The patient's family also reported that the patient's O2 sats had been in the 50s for about 1 week and the patient refused to come to the hospital. His family told EMS that the patient's CODE STATUS was DNI DNR and that they have the paperwork to prove this, but shortly after arrival in the ER the patient was unable to clarify whether this was his CODE STATUS was still DNR/DNI. Prior to my arrival in the ICU Dr. Nagy had placed a chest tube and drained close to 3 L of bloody pleural fluid. REVIEW OF SYSTEMS: Unable to obtain because the patient is lethargic PAST MEDICAL/ SURGICAL HISTORY: Metastatic squamous cell carcinoma of the lung, essential HTN, Leriche syndrome / PAD status post angioplasty, dyslipidemia, right lower extremity DVT on warfarin, hypothyroidism, advanced COPD, chronic O2 dependent respiratory failure on 3 L, GERD, ventral hernia, restless leg syndrome, aortobifem bypass ?, and recent AAA repair SOCIAL HISTORY: He quit smoking in 2003 and smoked 1 pack/day since he was in his teens, he drinks 2-3 beers per day, is and has 6 biological children. FAMILY HISTORY: His father had brain and lung cancer, 3 paternal uncles had lung cancer, his maternal aunt had bone cancer ALLERGIES: Please see below. HOME MEDICATIONS: Please see below. PHYSICAL EXAMINATION: Vital Signs Date Time Temp Pulse Resp B/P (MAP) Pulse Ox O2 Delivery O2 Flow Rate FiO2 02/14/21 19:19 100 02/14/21 19:48 95.6 84 24 115/64 (81) 91 NIPPV (BIPAP/CPAP) GENERAL APPEARANCE: well-nourished and developed /Gann agitation sedation score -3 HEENT: No scleral icterus/BiPAP mask is in place CARDIOVASCULAR: He has P pulmonale / no LE edema LUNGS: Breath sounds are diminished bilaterally he has mild dullness to percussion on the left lower base /he has a chest tube draining bloody fluid at the left side of his chest ABDOMEN: contour obese/he has a hernia/he has a large mid abdominal scar due to the recent AAA repair/ soft & he does not grimace w palpation MUSCULOSKELETAL: He is attempting to move his arms and legs spontaneously INTEGUMENT: He has spider angiomata on both cheeks/he is not jaundiced or pale/he has chronic hyperpigmentation of both lower extremities and a scar at the right lower extremity that appears like it was due to harvesting of the lower extremity vein NEUROLOGICAL: He resists my attempt to open his eyes to examine them but his pupils are dilated/I am unable to complete a thorough neurological exam because he is sedated PSYCHIATRIC: Intermittently arousable/not consistently following commands LABORATORY DATA: IMAGING: Chest x-ray IMPRESSION: Large left pleural effusion with probable subsegmental atelectatic change. Certainly,pneumonia cannot be ruled out. There are also new right lower lobe opacities suspicious for pneumonia. CT chest IMPRESSION: 1. Destructive lesion posterior right 9th rib. 2. Development of a very large left pleural effusion. 3. Consolidation of lung in left parahilar region markedly increased and known lung carcinoma. 4. Severe bullous emphysema. MICROBIOLOGY: Respiratory panel is negative ASSESSMENT: Mr. Felton is a 70-year-old gentleman with a history of Metastatic SCC of the lung, PAD DLP, RLE DVT, hypothyroidism, HTN, COPD, chronic O2 dependent respiratory failure on 3 L, GERD & RLS who is admitted for management of acute on chronic respiratory failure likely due to a large left-sided malignant pleural effusion. PLAN: 1 Malignant pleural effusion He had a chest tube placed by Dr. Nagy Plan: Follow-up pleural fluid studies/follow-up with Dr. Nagy on additional recommendations 2 Acute on chronic BiPAP dependent hypoxemic respiratory failure Plan: Consult for BiPAP management/follow-up repeat ABG 3 Type B lactic acidosis Likely due to hypoxemia He has SIRS criteria as well but no fever Plan: Monitor vitals and follow-up repeat lactic acid 4 Elevated troponin / Demand ischemia ? EKG showed sinus rhythm w a short [place] And possible anterior infarct Plan: telemetry / trend troponins / f/u repeat EKG 5 SIRS Likely reactive he is also on steroids at home Plan: f/u blood cx, pleural fluid cx 6 COPD / chronic O2 dependent respiratory failure on 3 L Plan: resume Prednisone & albuterol 7 Mild hyperkalemia Plan: Follow-up repeat BMP 8 Mild hyponatremia Plan: follow-up BMP 9 Mild transaminitis likely due to alcohol abuse Plan: Fall and seizure precautions /as needed Ativan, thiamine and folic acid per [facility] protocol 10 Essential HTN Plan: hold Metoprolol, amlodipine & lisinopril because his blood pressure is currently low/IV fluids 11 Metastatic SCC of the lung Plan: f/u Oncologist as scheduled 12 PAD / DLP Plan: Atorvastatin 13 RLE DVT Plan: pending INR will decide whether to resume Warfarin 14 Hypothyroidism Plan: Levothyroxine 15 RLS Plan: Ropinorole 16 Obesity complicates care DVT PROPHYLAXIS: n/a he is on warfarin DISPOSITION: his prognosis is guarded, he will need at least 2 midnight's stay LATE ENTRY 620AM I was informed by JOSR Batres that the patient's troponin is now 3 I reassessed the patient at around 620 in the morning he was alert denied having any chest pain beyond the chest pain related to the chest tube and reported that his shortness of breath was better. I informed him about the elevated troponin. He was open to having a campaign analyst come and talk with him; I will ask to come and see the patient today. A repeat EKG is pending. Home Medications Scheduled Amlodipine Besylate (Amlodipine Besylate) 5 Mg Tablet, 5 MG PO DAILY Atorvastatin Calcium (Atorvastatin Calcium) 10 Mg Tablet, 10 MG PO DAILY Cholecalciferol (Vitamin D3) (Vitamin D3) 1,000 Unit Tablet, 1,000 UNITS PO DAILY Docusate Sodium (Docusate Sodium) 100 Mg Capsule, 100 MG PO BID Fluticasone/Umeclidin/Vilanter (Trelegy Ellipta 100-62.5-25) 1 Each Blst.w.dev, 1 PUFF INH DAILY Gabapentin (Gabapentin) 400 Mg Capsule, 400 MG PO BID Levothyroxine Sodium (Levothyroxine Sodium) 25 Mcg Tablet, 25 MCG PO DAILY Lisinopril (Lisinopril) 10 Mg Tablet, 10 MG PO DAILY Metoprolol Tartrate (Metoprolol Tartrate) 25 Mg Tablet, 12.5 MG PO 3XW SUNDAY, SUNDAY AND SUNDAY Prednisone (Prednisone) 10 Mg Tablet, 10 MG PO TAPER 40MG FOR 4 DAYS, 30MG FOR 4 DAYS, 20MG FOR 4 DAYS, THEN 10MG DAILY; LAST DOSE WAS FIRST OF 30MG DOSE Ropinirole HCl (Ropinirole HCl) 0.5 Mg Tablet, 0.5 MG PO DAILY Warfarin Sodium (Warfarin Sodium) 2 Mg Tablet, 2 MG PO QHS Warfarin Sodium (Warfarin Sodium) 1 Mg Tablet, 1 MG PO 3XW SUNDAY, SUNDAY AND SUNDAY AT QHS: TAKES WITH 2MG FOR 3MG TOTAL Scheduled PRN Albuterol Sulf (Albuterol Sulfate) 2.5 Mg/3 Ml Vial.neb, 2.5 MG INH QID PRN for SHORTNESS OF BREATH Albuterol Sulfate (Proair Hfa) 8.5 Gm Hfa.aer.ad, 2 PUFF INH QID PRN for SHORTNESS OF BREATH Oxycodone HCl/Acetaminophen (Oxycodone-Acetaminophen 5-325) 1 Each Tablet, 1 TAB PO Q4H PRN for PAIN LEVEL 6-10 Allergies Coded Allergies: NSAIDS (Non-Steroidal Anti-Inflamma (Verified Allergy, Severe, airway swelling, 02/15/21) A-FIB/CHADSVASC A-FIB History Current/History of A-Fib/PAF?: No Current PO Anticoag Therapy: No FORREST BERNAL MD Feb 14, 2021 22:46
[2021-02-14] MEDS ORDERED: PRED10TA2 PO (22:47)
[2021-02-14] MEDS ORDERED: ALBUTEROL 90 MCG/ACT 8GM HFA INHALER INH PRN (22:50)
[2021-02-14] MEDS ORDERED: ALBUTEROL SULFATE 2.5 MG/0.5 ML INH NEB SOLN INH PRN (22:50)
[2021-02-14 22:55] LABS: VENOUS BASE EXCESS 0.2 (-2.0-2.0); VENOUS HCO3 29.3 MEQ/L (23.0-27.0); VENOUS O2 SATURATION 53.2 % (60.0-80.0); VENOUS PARTIAL PRESSURE CO2 66.7 mmHg (38.0-50.0); VENOUS PARTIAL PRESSURE O2 33.3 mmHg (30.0-50.0); VENOUS STANDARD HCO3 23.5 MEQ/L; VENOUS TOTAL CO2 31.3 MEQ/L (24.0-28.0)
[2021-02-14] MEDS ORDERED: VANCOMYCIN HCL 1,000 MG, VIAL MATE ADAPTER 1 EACH in NS 250 ML IV ONE (22:55)
[2021-02-14 23:07] LABS: PROTHROMBIN TIME 68.6 SECONDS (12.5-14.3)
[2021-02-14 23:08] LABS: INR 7.96; PARTIAL THROMBOPLASTIN TIME 82.9 SECONDS (24.2-38.5)
--- NOTE | 2021-02-14 23:08 | REPVR ---
PROCEDURE INFORMATION: Exam: CT Chest Without Contrast; Diagnostic Exam date and time: 02/14/2021 9:23 PM Age: 70 years old Clinical indication: Other: Pleural effusion, known metastatic lung CA TECHNIQUE: Imaging protocol: Diagnostic computed tomography of the chest without contrast. 3D rendering (Not supervised by radiologist): MIP and/or 3D reconstructed images were created by the technologist. Radiation optimization: All CT scans at this facility use at least one of these dose optimization techniques: automated exposure control; mA and/or kV adjustment per patient size (includes targeted exams where dose is matched to clinical indication); or iterative reconstruction. COMPARISON: PET/CT Skull/mid thigh 01/10/2021 8:47 AM FINDINGS: Lungs: Severe changes of bullous emphysema noted throughout the right lung. There is consolidation of lung in the left hilar region and known neoplasm on the left. There is been interval development of a very large left pleural effusion Pleural spaces: See "Lungs" finding. Heart: The heart is normal in size. Aorta: There is opacification of the aorta. Lymph nodes: There multiple calcified lymph nodes along the left mainstem bronchus. Bones/joints: There is a destructive lesion of the right posterior 9th rib. Soft tissues: There is a right axillary graft the can be followed to the right right groin. IMPRESSION: 1. Destructive lesion posterior right 9th rib. 2. Development of a very large left pleural effusion. 3. Consolidation of lung in left parahilar region markedly increased and known lung carcinoma. 4. Severe bullous emphysema. Electronically signed by: Higinio Cha On 02/14/2021 23:08:03 PM
[2021-02-14 23:46] LABS: PH BODY FLUID 7.284 UNITS (NOT ESTABLISHED); SOURCE, BODY FLUID pH PLEURAL
[2021-02-14 23:51] LABS: ABG BASE EXCESS 2.8 (-2.0-2.0); ABG HCO3 27.5 MEQ/L (22.0-26.0); ABG PARTIAL PRESSURE CO2 42.7 mmHg (35.0-45.0); ABG PARTIAL PRESSURE O2 93.6 mmHg (75.0-100.0); ABG STANDARD HCO3 26.9 MEQ/L (22.0-26.0); ABG TOTAL CO2 28.8 MEQ/L (23.0-31.0); ABG pH (ARTERIAL) 7.427 UNITS (7.350-7.450)
[2021-02-15] VITALS (23 sets, daily range): BP systolic 104–162; BP diastolic 52–104
[2021-02-15] MEDS ORDERED: VANCOMYCIN HCL 1,000 MG, VIAL MATE ADAPTER 1 EACH in NS 250 ML IV SCH ×3
[2021-02-15] MEDS: D5W/0.9% SODIUM CHLORIDE 1,000 ML IV SCH
[2021-02-15 00:10] LABS: AMYLASE, BODY FLUID 11 U/L (NOT ESTABLISHED); CHOLESTEROL, BODY FLUID 64 MG/DL (NOT ESTABLISHED); LDH, BODY FLUID 383 U/L (NOT ESTABLISHED); SOURCE, BODY FLUID ALBUMIN PLEURAL; SOURCE, BODY FLUID AMYLASE PLEURAL; SOURCE, BODY FLUID CHOL PLEURAL; SOURCE, BODY FLUID GLUCOSE PLEURAL; SOURCE, BODY FLUID LDH PLEURAL; SOURCE, BODY FLUID TOT PROTEIN PLEURAL; SOURCE, BODY FLUID TRIG PLEURAL; TOTAL PROTEIN, BODY FLUID 4.5 G/DL (NOT ESTABLISHED); TRIGLYCERIDE, BODY FLUID 35 MG/DL (NOT ESTABLISHED)
[2021-02-15 00:28] LABS: BLOOD UREA NITROGEN 40 MG/DL (7-18); CALCIUM LEVEL 9.4 MG/DL (8.8-10.2); CARBON DIOXIDE LEVEL 27 MEQ/L (21-32); CHLORIDE LEVEL 98 MEQ/L (98-107); CREATININE FOR GFR 0.94 MG/DL (0.70-1.30); GLOMERULAR FILTRATION RATE > 60.0 (>42); GLUCOSE, FASTING 167 MG/DL (70-100); POTASSIUM SERUM 5.2 MEQ/L (3.5-5.1); SODIUM LEVEL 130 MEQ/L (136-145)
[2021-02-15 00:30] LABS: APPEARANCE, BODY FLUID TURBID (CLEAR); PLEURAL FL COLOR RED (COLORLESS); SOURCE, BODY FLUID PLEURAL
--- NOTE | 2021-02-15 01:21 | REPVR ---
PROCEDURE INFORMATION: Exam: XR Chest Exam date and time: 02/14/2021 11:12 PM Age: 70 years old Clinical indication: Device placement; Chest tube; Additional info: S/P chest tube placement TECHNIQUE: Imaging protocol: XR of the chest. Views: 1 view. COMPARISON: CT Chest without contrast 02/14/2021 9:08 PM FINDINGS: Limitations: Examination is limited by body habitus. Tubes, catheters and devices: Left-sided chest tube. Tip is located near the left hilar region. Lungs: No right lung infiltrate. Left lower lobe infiltrate. Left paratracheal density. Pleural spaces: Blunted right costophrenic angle. Moderate left pleural effusion. No pneumothorax. Heart/Mediastinum: Heart is partially obscured. Bones/joints: Unremarkable. IMPRESSION: 1. Left lung infiltrates. Decreased from prior. 2. Blunted right costophrenic angle. 3. Moderate left pleural effusion. Decreased from prior. 4. Interval placement of left-sided chest tube. Electronically signed by: Azucena Hester On 02/15/2021 01:20:48 AM
[2021-02-15] MEDS: LEVALBUTEROL 1.25 MG/0.5 ML CONCENTRATE NEB NEB SCH ×4 (02:01→19:20)
[2021-02-15] MEDS ORDERED: PIPERACILLIN/TAZOBACTAM SOD 4.5 GM in D5W MINI-BAG PLUS 100 ML IV SCH (03:00)
[2021-02-15 04:46] LABS: BASO % 0.2 % (0.0-1.0); HEMATOCRIT 40.3 % (42.0-52.0); HEMOGLOBIN 12.9 g/dl (13.5-17.5); LYMPH # 0.7 10^3/uL (1.5-5.0); LYMPH % 5.3 % (24.0-44.0); MEAN CORPUSCULAR HEMOGLOBIN 28.1 pg (27.0-33.0); MEAN CORPUSCULAR VOLUME 87.8 fl (80.0-96.0); MONO # 0.8 10^3/uL (0.0-0.8); MONO % 6.4 % (2.0-8.0); NEUTROPHILS # 10.9 10^3/uL (1.5-8.5); NEUTROPHILS % 86.8 % (36.0-66.0); PLATELET COUNT, AUTOMATED 372 10^3/uL (150-450); RED BLOOD COUNT 4.59 10^6/uL (4.30-6.10); WHITE BLOOD COUNT 12.6 10^3/uL (4.0-10.0)
[2021-02-15 04:57] LABS: PROTHROMBIN TIME 65.8 SECONDS (12.5-14.3)
[2021-02-15 05:04] LABS: BLOOD UREA NITROGEN 34 MG/DL (7-18); CALCIUM LEVEL 9.1 MG/DL (8.8-10.2); CARBON DIOXIDE LEVEL 27 MEQ/L (21-32); CHLORIDE LEVEL 99 MEQ/L (98-107); CREATININE FOR GFR 0.78 MG/DL (0.70-1.30); GLOMERULAR FILTRATION RATE > 60.0 (>42); GLUCOSE, FASTING 127 MG/DL (70-100); POTASSIUM SERUM 4.9 MEQ/L (3.5-5.1); SODIUM LEVEL 134 MEQ/L (136-145)
[2021-02-15] MEDS: KETOROLAC 30 MG/ML 1ML VIAL IV SCH ×2 (05:20)
[2021-02-15] MEDS ORDERED: LORazepam 2 MG TAB PO PRN (05:25)
[2021-02-15 05:30] LABS: INR 7.55
--- NOTE | 2021-02-15 05:38 | CCN ---
CRITICAL CARE NOTE DATE: 02/14/2021 SUBJECTIVE: I was called to the Intensive Care Unit to evaluate this 70-year-old male with acute respiratory failure. He was brought to the hospital via EMS with dyspnea from home. Noninvasive positive pressure ventilation was initiated and a left pleural effusion identified. PAST MEDICAL HISTORY: The patient's past medical history per the electronic health record includes squamous cell carcinoma of the left lung Stage IV, chronic obstructive pulmonary disease predominantly anatomic emphysema, right leg DVT, abdominal aortic aneurysm, atherosclerotic vascular disease, hypertension, coronary artery disease status post bypass three vessels, recent ventral hernia repair. OBJECTIVE: GENERAL APPEARANCE: At bedside, the patient is ill-appearing in respiratory distress having recently received sedation for placement of a left thoracostomy tube. He is unable to answer questions. VITAL SIGNS: His temperature is 95, pulse rate is 81, respirations 32, blood pressure 116/58. HEENT: His pupils are 4 mm and symmetric. NECK: Supple. There is no stridor, no palpable adenopathy. HEART: Regular, somewhat distant. LUNGS: Breath sounds are diminished globally with coarsening in the left mid chest. There is a left thoracostomy tube in place. Bloody fluid is being drained. ABDOMEN: Soft and obese. EXTREMITIES: Pulses intact. There is some edema of the extremities and right toes have been amputated. DIAGNOSTIC STUDIES: Chest x-ray and CT scan of the chest shows a large left pleural fluid collection and left lung mass. Following the thoracostomy tube, a new chest x-ray has been performed and shows the lungs better inflated on the left side, however there is interstitial edema in the re-expanded left lung. LABORATORY DATA: The laboratory studies have returned showing a white cell count of 13.7, hemoglobin 13.5, hematocrit 42.2, platelet count 401,000. Differential: White cell count shows 88.6% neutrophils, 3.6% lymphocytes, 1.2 nucleated red cells. His sodium is 134, potassium 5.4, chloride 98, CO2 27, BUN is 41, creatinine is 1.15, glucose 154, lactic acid 3.9. Calcium is 9.2. Bilirubin is 0.7. AST 71, ALT 70. Alkaline phosphatase 74. CPK is 99. Troponin 0.49. Pro-BNP 3718. Albumin 2.9. Arterial blood gases showed a pH of 7.26, pCO2 66, pO2 of 33. His PT is 68, PTT 82, INR 7.96. The primary problem requiring critical attention is acute respiratory failure. Will modify noninvasive positive pressure ventilation and recheck arterial blood gases. Tension left hydrothorax status post thoracostomy draining bloody pleural effusion, likely malignant. Reexpansion pulmonary edema. I will decrease the IV rate and increase PEEP, follow imaging. 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 On review of the record, patient is not felt to be a candidate for chemotherapy or radiation and therefore palliative interventions have been considered. Chronic obstructive pulmonary disease, nebulized bronchodilators will be administered. Coagulopathy secondary to coumadin, no anticoagulation at this point. Will repeat the INR. He is not having any active bleeding with the possible exception of the blood in the thoracostomy tube. Will follow his H and H and reverse the anticoagulation if necessary given his prior history of DVT. Patient's condition is very critical, prognosis is poor. The case has been reviewed with the Attending Hospitalist and Thoracic Surgical Service. I have reviewed the patient's status and care plans with the ICU Nursing Team; 127 minutes was spent in the provision of bedside critical care and coordination excluding any time for the performance of procedures.
[2021-02-15] MEDS: THIAMINE 100 MG TAB PO SCH ×2 (05:52→21:04)
[2021-02-15] MEDS: LEVOTHYROXINE 25MCG TABLET (0.025MG) PO SCH (05:52)
[2021-02-15 06:03] LABS: ABG BASE EXCESS 3.6 (-2.0-2.0); ABG HCO3 27.7 MEQ/L (22.0-26.0); ABG O2 SATURATION 97.5 % (95.0-99.0); ABG PARTIAL PRESSURE CO2 39.9 mmHg (35.0-45.0); ABG PARTIAL PRESSURE O2 95.1 mmHg (75.0-100.0); ABG STANDARD HCO3 27.7 MEQ/L (22.0-26.0); ABG TOTAL CO2 28.9 MEQ/L (23.0-31.0); ABG pH (ARTERIAL) 7.459 UNITS (7.350-7.450)
[2021-02-15 06:11] LABS: TROPONIN I 3.02 NG/ML (< 0.10)
[2021-02-15] MEDS: PERCOCET 5MG/325MG TAB PO PRN ×2 (06:15→16:12)
[2021-02-15 06:35] LABS: LDH LACTATE DEHYDROGENASE 466 U/L (87-241)
--- NOTE | 2021-02-15 08:03 | RO ---
OPERATIVE NOTE DATE OF OPERATION: 02/14/2021 INDICATIONS FOR PROCEDURE: I was asked to see Mr. Felton by the emergency room physician, Dr. Chase, for a large pleural effusion, shortness of breath, and near respiratory failure. I asked he be transferred directly to the ICU and while in the ICU, he was on CPAP 03/23 or 8 and could hardly speak. He was in acute respiratory distress. I therefore proceeded to place a chest tube. Given the emergent nature of the situation, we only obtained a verbal consent as he could not speak and as he is now recovering from Versed, I will dictate my consultation in the morning. It was not appropriate to obtain a written consent, he did gasp his oral consent. PREOPERATIVE DIAGNOSIS: POSTOPERATIVE DIAGNOSIS: PROCEDURE: Chest tube insertion. SURGEON: Rnon Nagy M.D. QUARTER INSPECTOR: None. ANESTHESIA: 4 mg Versed. DESCRIPTION OF PROCEDURE: Under satisfactory moderate sedation achieved with 4 mg of Versed, the patient was prepped and draped in the usual sterile fashion. Chest was infiltrated with 1% Lidocaine to the pleura to include the periosteum, intrathoracic muscles, skin, and subcutaneous tissue. The incision was made and a tunnel was created in the chest without difficulty over the approximate sixth rib. A #24 chest tube was placed without difficulty and secured to the chest wall. It drained 3000 mL of serosanguineous fluid. It was sent for the requisite studies of bacteriology, cytologies, chemistries, and hematologies. The tube was secured to the chest wall with a #2 Tevdek suture. The patient tolerated the procedure well and a chest x-ray showed the lung re-expanded to the chest wall. EVIE
--- NOTE | 2021-02-15 08:38 | REP ---
INDICATION: pleural effusion COMPARISON: 02/14/2021 TECHNIQUE: Portable AP view of the chest FINDINGS: Left-sided chest tube overlies the left mid lung zone and the left pleural effusion is considerably decreased. Left mid to lower lobe pulmonary parenchymal opacities along with right basilar parenchymal opacities and small right pleural reaction identified. No pneumothorax. Mediastinum and cardiac silhouette are incompletely evaluated due to overlying opacities. Skeletal structures appear intact. IMPRESSION: 1. Left-sided chest tube with decreased pleural effusion. No pneumothorax. 2. Bilateral parenchymal opacities (left greater than right) and small right pleural reaction. <Electronically signed by Nasir Sun > 02/15/21 0831
--- NOTE | 2021-02-15 08:50 | CR ---
CONSULTATION DATE: 02/15/2021 REFERRING PHYSICIAN: FORREST BERNAL MD REASON FOR CONSULTATION: Elevated troponin. HISTORY OF PRESENT ILLNESS: Mr. Felton is a 70-year-old man who has Stage IV non-small cell lung cancer. He presented to the Emergency Room yesterday from his home residence essentially with agonal breathing. He was treated with noninvasive ventilation and large left pleural effusion was drained by Dr. Nagy. Even though he did not have any complaint about chest discomfort, a troponin was drawn and was initially mildly elevated and a subsequent follow-up value was even more elevated at 3.0. At no point was the patient complaining about any chest discomfort. EKG revealed no acute ischemic ST-T abnormalities. I was asked to see the patient in consultation. At the time of my evaluation, the patient is on BiPAP. He is clearly comprehending but the communication is somewhat challenging, but he specifically denies any chest discomfort in the last few days with the exception of current pain at the site of chest tube insertion. It is not completely clear to me whether he has a prior history of coronary artery disease. He does have severe peripheral vascular disease with a history of revascularization procedures on lower extremities. PAST MEDICAL HISTORY: 1. Squamous cell lung cancer with metastases to skeleton and now large pleural effusion. 2. Advanced COPD, oxygen dependent. 3. Peripheral vascular disease, status post revascularization on lower extremities, most likely aortobifemoral bypass and history of AAA repair. 4. History of DVT on chronic anticoagulation. 5. Hypothyroidism. 6. GERD. SOCIAL HISTORY: The patient is an ex-smoker, quit in 2003, he drinks a few beers a day, he is , has six children. FAMILY HISTORY: Per records, his father of lung cancer. He has several uncles with lung cancer. ALLERGIES: He has a history of intolerance to NSAIDs. HOME MEDICATIONS: 1. Albuterol as needed. 2. Amlodipine 5 mg a day. 3. Atorvastatin 10 mg. 4. Vitamin D3. 5. Colace 100 mg twice a day. 6. Trelegy Ellipta. 7. Gabapentin 400 twice a day. 8. Levothyroxine 25 mcg a day. 9. Lisinopril 10 mg a day. 10.Metoprolol 12.5 mg three times a week. 11.Oxycodone. 12.Prednisone 10 mg currently being tapered. 13.Warfarin is directed. 14.Ropinirole 0.5 mg daily. REVIEW OF SYSTEMS: Difficult to obtain due to patient's condition. Based on review of charts, there is no documented coronary artery disease from the past. PHYSICAL EXAMINATION: GENERAL/VITAL SIGNS: Mr. Felton is an elderly man who is in the ICU bed with BiPAP mask on. He does not seem to be in particular distress but is somewhat tachypneic with respiratory rate up to 27 per minute. The heart rate is from 50s to 90s, sinus rhythm with ectopic beats, saturation is currently 96% on 50% FIO2 on BiPAP. I do not appreciate distinct JVP elevation. HEART: Regular rhythm. I do not appreciate a gallop, rub or murmur. LUNGS: Somewhat diminished bilaterally with fair air movement. No crackles or rhonchi are appreciated. ABDOMEN: Scarring after prior surgeries, protuberant, no shifting dullness. EXTREMITIES: Free of edema. He is missing his toes on the right lower extremity. Peripheral pulses are of fair quality. There are discoloration changes of stasis dermatitis in both lower extremities. NEUROLOGIC: He seems to be responding to all questions appropriately even though it is difficult to understand over his BiPAP. He moves all four extremities. LABORATORY DATA: As of this morning, basic metabolic panel is essentially normal but for glucose of 127 and sodium of 134. His calcium is 9.1. Troponin I initially at 8 o'clock yesterday was 0.49 and it is 3.02 as of 5 o'clock this morning. His lactic acid on presentation was 3.9, has not been repeated since. CBC: WBC count 12.6, hemoglobin 12.9, hematocrit 40.3, platelet count 372,000. INR is 7.5 as of 5 o'clock this morning. The analysis of the pleural fluid revealed pH 7.24 with WBC count of 2500, glucose 123, protein 4.5, albumin 2.2, LDH 383. IMAGING: Imaging of the chest reveals the presence of initially very large left pleural effusion. The chest x-ray after the chest tube placement indicates improvement. There is large left paratracheal density consistent with his cancer. EKG reveals the presence of sinus rhythm with minimal nonspecific repolarization abnormalities. I do not appreciate any convincing evidence for ischemia. ASSESSMENT AND PLAN: Mr. Felton is an elderly man who has widely metastatic lung cancer and was felt not to be a candidate for chemo or radiation therapy. He now presents with respiratory failure likely secondary to progression of his malignancy plus underlying COPD. A large left pleural effusion that is likely malignant was drained. As a somewhat coincidental finding he had mildly elevated troponin. His INR is supratherapeutic at this point. In my opinion, this is most likely Type 2 myocardial infarction related to his hypoxemia and respiratory failure but even if it is Type 1 myocardial infarction, our options of treatment are very limited in the current setting. I recommend to pursue purely supportive therapy. Once his INR drops into the therapeutic range, I would add a baby aspirin. I think we should continue his statin and if blood pressure and heart rate tolerates he can get low dose beta tea. He certainly is not a candidate for any invasive measures. From the review of the chart and in talking to his nurse and also to the patient, I learned that he was a DNI/DNR but after his arrival to the hospital he reversed that and he is currently a full code. I tried to explain to the patient that in my opinion this is not a reasonable decision, he has incurable widely metastatic cancer and institution of invasive therapy is unlikely to change his prognosis and very likely will increase his suffering. I think that once he comes off BiPAP this will need to be addressed with him directly. EVIE
[2021-02-15] MEDS ORDERED: HEPARIN SOD (PORCINE) 5000UNITS/ML 1ML VIAL/SYRINGE SC SCH (09:00)
[2021-02-15] MEDS ORDERED: DOCUSATE SODIUM 100MG CAPSULE PO SCH (09:00)
[2021-02-15] MEDS ORDERED: amLODIPine 5 MG TAB PO SCH (09:00)
[2021-02-15] MEDS: GABAPENTIN 400MG CAP PO SCH ×2 (09:16→21:04)
[2021-02-15] MEDS: DOCUSATE SODIUM 100MG CAPSULE PO SCH ×2 (09:16→21:04)
[2021-02-15] MEDS: MOM 30ML SUSPENSION UDC PO SCH (09:16)
[2021-02-15] MEDS: VITAMIN D 1,000 INTERNATIONAL UNITS TABLET PO SCH (09:16)
[2021-02-15] MEDS: rOPINIRole 0.25 MG TAB(REQUIP) PO SCH (09:16)
[2021-02-15] MEDS: FOLIC ACID 1 MG TAB PO SCH (09:17)
[2021-02-15] MEDS: PANTOPRAZOLE 40MG TAB (PROTONIX) PO SCH (09:17)
[2021-02-15] MEDS: MULTIVITAMINS/MINERALS THERAP 1 TAB PO SCH (09:17)
[2021-02-15] MEDS: ATORVASTATIN 10 MG TAB PO SCH (09:17)
[2021-02-15 10:52] LABS: ALBUMIN 2.5 GM/DL (3.2-5.2); ALT/SGPT 65 U/L (12-78); BILIRUBIN,TOTAL 0.6 MG/DL (0.2-1.0); BLOOD UREA NITROGEN 33 MG/DL (7-18); CALCIUM LEVEL 9.1 MG/DL (8.8-10.2); CARBON DIOXIDE LEVEL 31 MEQ/L (21-32); CHLORIDE LEVEL 97 MEQ/L (98-107); CHOLESTEROL LEVEL 103 MG/DL (< 200); CPK CREATINE PHOSPHOKINASE 64 U/L (39-308); CREATININE FOR GFR 0.88 MG/DL (0.70-1.30); GLOMERULAR FILTRATION RATE > 60.0 (>42); GLUCOSE, FASTING 151 MG/DL (70-100); LDH LACTATE DEHYDROGENASE 211 U/L (87-241); PHOSPHORUS LEVEL 2.6 MG/DL (2.5-4.9); POTASSIUM SERUM 4.7 MEQ/L (3.5-5.1); SODIUM LEVEL 131 MEQ/L (136-145); TOTAL PROTEIN 6.2 GM/DL (6.4-8.2); TRIGLYCERIDES LEVEL 107 MG/DL (<150)
--- NOTE | 2021-02-15 13:00 | IPNPDOC ---
Subjective Date Seen The patient was seen on 02/15/21. Subjective Chief Complaint/HPI Patient remains on BiPAP, left-sided chest tube in place. Reports that the shortness of breath is a little less than yesterday, pain controlled Objective Physical Examination General Exam: Positive: Alert, Cooperative, No Acute Distress Eye Exam: Positive: PERRLA, Conjunctiva & lids normal, EOMI; Negative: Sclera icteric ENT Exam: Positive: Atraumatic Neck Exam: Positive: Supple; Negative: thyromegaly Chest Exam: Positive: Diminished (On the left); Negative: Rhonchi, Wheezing, Other Heart Exam: Positive: Rate Normal, Regular Rhythm, Normal S1, Normal S2; Negative: Murmurs, Rubs Telemetry: Positive: No significant arrhythmia Abdomen Exam: Positive: Normal bowel sounds, Soft; Negative: Tenderness, Hepatospenomegaly Extremity Exam: Positive: Other (Right TMA); Negative: Clubbing, Cyanosis, Edema Assessment /Plan Assessment Mr. 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 Morgan, who planned to start palliative pembrolizumab pending the PD-L1 results because his ECOG status was too low for him to tolerate chemo. Earlier on during the day of admission the patient's family called EMS because they noticed that the patient was not breathing. When EMS arrived they noticed that the patient was breathing 4 breaths/min and started ventilating him with bag and mask. Thereafter his O2 sats increased to the 60s and he was put on CPAP. At the time his O2 sats improved to the 80s. The patient's family also reported that the patient's O2 sats had been in the 50s for about 1 week and the patient refused to come to the hospital. In the ED he was found to have massive left-sided pleural effusion with tension hydro thorax. Dr. Nagy had placed a chest tube and drained close to 4 L of bloody pleural fluid. He was admitted for acute on chronic respiratory failure due to tension hydrothorax. Acute on chronic respiratory failure with hypoxia Due to the tension hydrothorax Status post chest tube drainage remains on BiPAP Pulmonary consultation appreciated Left-sided tension hydrothorax Hemorrhagic pleural fluid likely malignant Pleural fluid studies have been sent reports pending Status post chest tube placement on 02/14/2021 Dr. 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 Advanced COPD, with chronic hypoxic respiratory failure Continue nebulizers and oxygen History of DVT Coumadin on hold due to supratherapeutic INR Coagulopathy secondary to coumadin, no anticoagulation at this point. He is not having any active bleeding with the possible with the exception of hemorrhage pleural fluid Hemoglobin stable Peripheral vascular disease, status post revascularization on lower extremities, most likely aortobifemoral bypass and history of AAA repair. GERD PPI Restless leg syndrome Ropinirole Essential HTN hold Metoprolol, amlodipine & lisinopril because his blood pressure is currently low/IV fluids DLP Atorvastatin RLE DVT Hold Coumadin Hypothyroidism Levothyroxine Obesity complicates care Elevated troponin Due to demand ischemia Lactic acidosis Due to hypoxia and respiratory distress Plan/VTE VTE Prophylaxis Ordered?: Yes VS, I&O, 24H, Fishbone Vital Signs/I&O Vital Signs Date Time Temp Pulse Resp B/P (MAP) Pulse Ox O2 Delivery O2 Flow Rate FiO2 02/15/21 10:00 87 110/59 (76) 96 NIPPV (BIPAP/CPAP) 40 02/15/21 09:30 98.0 24 02/15/21 09:15 8.0 I&O- Last 24 Hours up to 6 AM 02/15/21 06:00 Intake Total 635 ml Output Total 3774 ml Balance -3139 ml Laboratory Data 24H LABS Laboratory Tests 2 02/14/21 19:13: POC pH (Misc Panel) 7.246*L, POC Base Excess (Misc Panel) 0.0, POC Saturated Percent O2 (Misc) 90L, POC pO2 (Misc Panel) 70.0L, POC pCO2 (Misc Panel) 62.3*H, POC HCO3 (Misc Panel) 27.1H, POC Total CO2 (Misc Panel) 29.0H 02/14/21 20:17: Immature Granulocyte % (Auto) 2.2, Neutrophils (%) (Auto) 88.6H, Lymphocytes (%) (Auto) 3.6L, Monocytes (%) (Auto) 5.2, Eosinophils (%) (Auto) 0.0, Basophils (%) (Auto) 0.4, Neutrophils # (Auto) 12.1H, Lymphocytes # (Auto) 0.5L, Monocytes # (Auto) 0.7, Eosinophils # (Auto) 0.0, Basophils # (Auto) 0.1, Nucleated Red Blood Cells % (auto) 1.2H, Anion Gap 9, Glomerular Filtration Rate > 60.0, Lactic Acid Level 3.9*H, Calcium Level 9.2, Total Bilirubin 0.7, Direct Bilirubin 0.2, Aspartate Amino Transf (AST/SGOT) 71H, Alanine Aminotransferase (ALT/SGPT) 70, Alkaline Phosphatase 74, Lactate Dehydrogenase 466H, Total Creatine Kinase 99, Creatine Kinase MB 7.3H, Creatine Kinase MB Relative Index 7.37H, Troponin I 0.49H, MO-Dls-Y-Type Natriuretic Peptide 3718H, Total Protein 6.6, Albumin 2.9L, Albumin/Globulin Ratio 0.8 02/14/21 21:59: POC pH (Misc Panel) 7.340L, POC Base Excess (Misc Panel) 7.0H, POC Saturated Pe rcent O2 (Misc) 72L, POC pO2 (Misc Panel) 41.0*L, POC pCO2 (Misc Panel) 59.8H, POC HCO3 (Misc Panel) 32.3H, POC Total CO2 (Misc Panel) 34.0H 02/14/21 22:38: Prothrombin Time 68.6H, Prothromb Time International Ratio 7.96*H, Activated Partial Thromboplast Time 82.9H, Blood Gas Bicarbonate Standard 23.5, Venous Blood pH 7.260L, Venous Blood Partial Pressure CO2 66.7H, Venous Blood Partial Pressure O2 33.3, Venous Blood Total Carbon Dioxide 31.3H, Venous Blood HCO3 29.3H, Venous Blood Oxygen Saturation 53.2L, Venous Blood Base Excess 0.2 02/14/21 22:45: Body Fluid pH 7.284, Body Fluid pH Source PLEURAL, Body Fluid WBC (Auto) 2542H, Body Fluid RBC (Auto) 970, Body Fluid Mononuclear Cells % Auto 55.3H, Fluid Polymorphonuclear Cell % Auto 44.7H, Body Fluid Glucose Source PLEURAL, Body Fluid Glucose 123, Body Fluid Protein Source PLEURAL, Body Fluid Total Protein 4.5, Body Fluid Albumin Source PLEURAL, Body Fluid Albumin 2.2, Body Fluid LDH Source PLEURAL, Body Fluid Lactate Dehydrogenase 383, Body Fluid Amylase Source PLEURAL, Body Fluid Amylase 11, Body Fluid Cholesterol 64, Body Fluid Cholesterol Source PLEURAL, Body Fluid Triglyceride Source PLEURAL, Body Fluid Triglycerides 35, Pleural Fluid Source PLEURAL, Pleural Fluid Color RED, Pleural Fluid Appearance TURBID 02/14/21 23:42: Blood Gas Bicarbonate Standard 26.9H, Arterial Blood pH 7.427, Arterial Blood Partial Pressure CO2 42.7, Arterial Blood Partial Pressure O2 93.6, Arterial Blood Total CO2 28.8, Arterial Blood HCO3 27.5H, Arterial Blood Base Excess 2.8H, Arterial Blood Oxygen Saturation 97.0 02/14/21 23:47: Anion Gap 5L, Glomerular Filtration Rate > 60.0, Calcium Level 9.4 02/14/21 23:50: Lactic Acid Followup at 4 Hours 2.0 02/15/21 01:48: Osmolality 288 02/15/21 04:19: Immature Granulocyte % (Auto) 1.3, Neutrophils (%) (Auto) 86.8H, Lymphocytes (%) (Auto) 5.3L, Monocytes (%) (Auto) 6.4, Eosinophils (%) (Auto) 0.0, Basophils (%) (Auto) 0.2, Neutrophils # (Auto) 10.9H, Lymphocytes # (Auto) 0.7L, Monocytes # (Auto) 0.8, Eosinophils # (Auto) 0.0, Basophils # (Auto) 0.0, Nucleated Red Blood Cells % (auto) 1.1H, Prothrombin Time 65.8H, Prothromb Time International Ratio 7.55*H, Anion Gap 8, Glomerular Filtration Rate > 60.0, Calcium Level 9.1, Troponin I 3.02#*H 02/15/21 05:40: Blood Gas Bicarbonate Standard 27.7H, Arterial Blood pH 7.459H, Arterial Blood Partial Pressure CO2 39.9, Arterial Blood Partial Pressure O2 95.1, Arterial Blood Total CO2 28.9, Arterial Blood HCO3 27.7H, Arterial Blood Base Excess 3.6H, Arterial Blood Oxygen Saturation 97.5 02/15/21 09:56: Anion Gap 3L, Glomerular Filtration Rate > 60.0, Calcium Level 9.1, Phosphorus Level 2.6, Total Bilirubin 0.6, Aspartate Amino Transf (AST/SGOT) 55H, Alanine Aminotransferase (ALT/SGPT) 65, Alkaline Phosphatase 62, Lactate Dehydrogenase 211, Total Creatine Kinase 64, Total Protein 6.2L, Albumin 2.5L, Albumin/Globulin Ratio 0.7, Triglycerides Level 107, Cholesterol Level 103 CBC/BMP Laboratory Tests 02/14/21 20:17 02/14/21 23:47 02/15/21 04:19 02/15/21 09:56 Microbiology Microbiology 02/14/21 Body Fluid Culture, Received Pending 02/14/21 Acid Fast Stain, Received Pending 02/14/21 Mycobacterial Culture, Received Pending 02/14/21 Fungal Smear, Received Pending 02/14/21 Fungal Culture, Received Pending 02/14/21 Gram Stain - Final, Resulted 02/14/21 Anaerobic Culture, Resulted Pending 02/14/21 Blood Culture, Received Pending 02/14/21 Blood Culture, Received Pending 02/14/21 Respiratory Virus Panel (PCR) ([facility]PTALI) - Final, Complete AYDIN BELLO MD Feb 15, 2021 13:00
--- NOTE | 2021-02-15 14:56 | CCN ---
CRITICAL CARE NOTE DATE: 02/15/2021 SUBJECTIVE: Patient was seen at beside rounds this morning in the intensive care unit (ICU). Patient is currently on bilevel positive airway pressure (BiPAP) machine with settings of 14/8. He is able to speak in full sentences without any acute respiratory distress and denies any shortness of breath and feels relatively comfortable this am He did not have any acute events reported overnight, afebrile. He did have about 395 mL of intake, about 3000 mL of output, with a negative net negative of 2605 mL. Patient's chest tube is in auspicious position confirmed on radiograph and currently on 20 of suction. OBJECTIVE: VITAL SIGNS: Temperature 98.1, heart rate 58, respirations 20, blood pressure 105/59, saturating 96% on 50% FiO2. INTAKE AND OUTPUT: 24 hour in is 395 mL. 24 hour out is 3000 mL for a net negative of 2605 mL. GENERAL APPEARANCE: Patient is at bedside wearing his bilevel positive airway pressure (BiPAP) mask without any respiratory distress. He is able to answer questions in full sentences and states that he is comfortable wearing the mask and denies any shortness of breath. HEENT: Sclerae clear, anicteric. Pupils are clear, reactive to light. Pupils are symmetric. Mucous membranes are moist. Tongue is midline. NECK: Supple. No tracheal deviation. No palpable adenopathy. No stridors heard. No jugular venous distention (JVD) appreciated. HEART: Normal sinus rhythm. Normal S1, S2. No significant audible murmur, gallops or rubs. LUNGS: Breath sounds diminished bilaterally. Expiratory wheezing appreciated in bilateral lower bases, more prominent on the right side. Chest tube is in place. ABDOMEN: Obese, soft, nontender, nondistended. Normal bowel sounds. EXTREMITIES: Pulses intact. Trace pedal edema noted. Patient has had right toes amputated. Chronic venous stasis in bilateral shins appreciated. LABORATORY DATA: White count 12.6, hemoglobin 12.9, hematocrit 40.3, platelets 372. Sodium 134, potassium 4.9, chloride 99, bicarbonate 27, BUN 34, creatinine 0.78, blood sugar 127, calcium 9.1, phosphorous 2.6. INR 7.55. PT 65.8. Troponin 3.02. AST 55, ALT 65, alkaline phosphatase 62, lactate dehydrogenase 211.Total CK 64. Total protein 6.2, albumin 2.5, total bilirubin 0.6. Arterial blood gas (ABG) this mornin.46/ 39.9/ 95%. EKG: Normal sinus rhythm with minimal nonspecific repolarization abnormalities. No evidence of acute ischemic ST-T abnormalities. IMAGING DATA: Chest x-ray from this morning shows left-sided chest tube with decreased pleural effusion. No pneumothorax. Bilateral parenchymal opacities, left greater than right and small right pleural reaction. ASSESSMENT AND PLAN: This is a 70-year-old gentleman who has a past medical history significant for stage IV non-small cell lung cancer and deemed not a candidate for chemotherapy or radiation per hematology/oncology and radiation oncology, who presents to [facility] due to progressive shortness of breath. In the emergency room (ER), patient had agonal breathing and was severely hypoxic and hypoxemic and was put on noninvasive positive pressure ventilation. He was found to have a large left-sided pleural effusion, which was drained by a chest tube and bloody effusion was drained out (approximately 4 liters initially). Of note, the patient also had an elevated troponin that was drawn on his arrival that was shown to be elevated at 0.3 and a subsequent followup troponin increased to 3. Patient denies any chest discomfort, however. EKG obtained did not show any acute ST-T abnormalities. His INR was also supratherapeutic at 7.96, now 7.55. It was noted that patient has a history of deep venous thrombosis (DVT) and is on Coumadin. Patient was admitted to the intensive care unit (ICU) for further management. 1. Acute hypoxemic respiratory failure. Patient did not tolerate continuous positive airway pressure (CPAP) initially and was subsequently switched to bilevel positive airway pressure (BiPAP) with current settings of 14/8 with backup grade of 12. His arterial blood gas (ABG) this morning shows pH of 7.46/39.9/95.2, saturating at 96% with 50% FiO2 and has respiratory acidosis, but with appropriate compensation. Will continue with current BiPAP settings and titrate his oxygen between 88-92%. 2. Left-sided tension hydrothorax status post chest tube placement. Patient was drained of 4 liters of bloody pleural fluid. 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 Patient's radiograph status post chest tube drainage shows pulmonary edema, likely secondary to pulmonary reexpansion edema, a likely complication due to rapid emptying of pleural cavity. Will discontinue patient's fluids, as he is fluid overloaded and continue to carefully monitor his fluid status with strict ins and outs. We will keep him more in the negatives. Continue daily weigh-ins. His PEEP has also been increased as well to counterbalance hydrostatic pressures and hope to improve pulmonary his pulmonary edema. 3. Hyperkalemia. Likely in the setting of acidosis. I believe that with the correction of his pH, his hyperkalemia will also correct by contraction alkalosis. Will continue to monitor his electrolytes and replete as needed. 4. Lactic acidosis. Initially, lactic acid of 3.9. This is likely in the setting of his severe hypoxemia and decreased perfusion. 5. Elevated troponin. Initial troponin was elevated at 0.3 and repeat was increased to 3.0. Patient is asymptomatic and does not report any chest pain during this hospitalization. EKG obtained initially in the emergency room (ER) and repeat does not show any acute ischemic ST-T abnormalities. His troponemia is likely in the setting of hypoxemic and respiratory failure. Cardiology is consulted. I appreciate their recommendations. 6. Leukocytosis. Patient does not have increased cough or any productive, purulent sputum. Patient is afebrile. This is likely a reactive acute leukocytosis due to malignant burden of his lung cancer and less likely pneumonia. Will discontinue his antibiotics. 7. Non-small cell carcinoma of left lung, stage IV. Per medical records review, patient is not felt to be a candidate for chemotherapy or radiation and therefore, palliative interventions have been considered. From chart review and speaking with the nurse about the patient, patient was initially DNR/DNI but upon arrival to the hospital, he reversed his code status and is currently full code. 8. Supratherapeutic INR. Patient has documented history of deep venous thrombosis (DVT) on Coumadin. In the ER, his initial INR was 7.9. Coumadin was discontinued. Will hold off on reversing his INR with blood products due to his acute pulmonary edema and volume status. His hemoglobin and hematocrit (H and H) right now is stable at 12.9/40.3. I will order a liver panel to assess for transaminitis. 9. Chronic obstructive pulmonary disease (COPD). Continue with nebulized bronchodilators. 10. Coagulopathy secondary to Coumadin. He is off anticoagulation at this point. His INR repeat is 7.55. We will continue to monitor that closely. He does not have any signs of active bleeding or petechiae noticed on examination. He does have bloody drainage of pleural fluid from his chest tube. His H and H is stable this morning at 12.9/40.3. We will continue to monitor that. We will reverse his anticoagulation as necessary according to his clinical status. 11. Deep venous thrombosis (DVT) prophylaxis with thromboembolism deterrents (TEDs) and sequential compression devices (SCDs). 12. Gastrointestinal (GI) prophylaxis with Protonix. 13. CODE STATUS: FULL CODE. Dr. Bowles: I saw the patient with the resident and participated in the provision of critical care. He remains hypoxemic predominately from reexpansion pulmonary edema and will need pressure therapy (NIPPV) until oxygen need can be met with other means. Discussed with the attending hospitalist service and thoracic surgery. The patient is appropriate for ICU and the nursing team has been updated. Seventy eight minutes was spent in the provision of critical care and coordination exclusive of procedure time. EVIE
[2021-02-16] VITALS (10 sets, daily range): BP systolic 100–142; BP diastolic 55–64
[2021-02-16] MEDS: D5W/0.9% SODIUM CHLORIDE 1,000 ML IV SCH (01:57)
[2021-02-16] MEDS: LEVALBUTEROL 1.25 MG/0.5 ML CONCENTRATE NEB NEB SCH ×4 (02:55→19:28)
[2021-02-16] MEDS: PERCOCET 5MG/325MG TAB PO PRN (03:40)
[2021-02-16 05:16] LABS: BASO % 0.1 % (0.0-1.0); EOS % 0.2 % (0.0-3.0); HEMATOCRIT 37.9 % (42.0-52.0); HEMOGLOBIN 12.2 g/dl (13.5-17.5); LYMPH % 10.4 % (24.0-44.0); MEAN CORPUSCULAR HEMOGLOBIN 28.5 pg (27.0-33.0); MEAN CORPUSCULAR HGB CONC 32.2 g/dl (32.0-36.5); MEAN CORPUSCULAR VOLUME 88.6 fl (80.0-96.0); MONO # 0.9 10^3/uL (0.0-0.8); MONO % 8.7 % (2.0-8.0); NEUTROPHILS # 7.8 10^3/uL (1.5-8.5); NEUTROPHILS % 79.5 % (36.0-66.0); PLATELET COUNT, AUTOMATED 299 10^3/uL (150-450); RED BLOOD COUNT 4.28 10^6/uL (4.30-6.10); WHITE BLOOD COUNT 9.8 10^3/uL (4.0-10.0)
[2021-02-16 05:27] LABS: PROTHROMBIN TIME 53.4 SECONDS (12.5-14.3)
[2021-02-16 05:30] LABS: INR 5.79
--- NOTE | 2021-02-16 05:42 | ECGEPIP ---
[facility] Test Date: 2021-02-15 Pat Name: MIC MCNAMARA Department: Room: [place] [address] Gender: Male Content Designer: JEANNE : [id number] Requested By: FORREST BERNAL Order Number: [id number] Reading MD: Dylon Rodriguez Measurements Intervals [place] Rate: 83 P: 70 [place]: 138 QRS: 43 QRSD: 90 T: -68 QT: 366 QTc: 430 Interpretive Statements Normal sinus rhythm Nonspecific ST-T wave abnormalities No significant change when compared to prior tracing of February 14, 2021 Electronically Signed on 02-16-2021 5:41:50 EDT by Dylon Rodriguez
[2021-02-16 05:50] LABS: ALBUMIN 2.4 GM/DL (3.2-5.2); ALT/SGPT 56 U/L (12-78); BILIRUBIN,TOTAL 0.6 MG/DL (0.2-1.0); BLOOD UREA NITROGEN 27 MG/DL (7-18); CALCIUM LEVEL 8.2 MG/DL (8.8-10.2); CARBON DIOXIDE LEVEL 33 MEQ/L (21-32); CHLORIDE LEVEL 100 MEQ/L (98-107); CHOLESTEROL LEVEL 95 MG/DL (< 200); CPK CREATINE PHOSPHOKINASE 36 U/L (39-308); GLOMERULAR FILTRATION RATE > 60.0 (>42); GLUCOSE, FASTING 103 MG/DL (70-100); LDH LACTATE DEHYDROGENASE 193 U/L (87-241); PHOSPHORUS LEVEL 2.5 MG/DL (2.5-4.9); POTASSIUM SERUM 4.7 MEQ/L (3.5-5.1); SODIUM LEVEL 135 MEQ/L (136-145); TOTAL PROTEIN 5.2 GM/DL (6.4-8.2); TRIGLYCERIDES LEVEL 124 MG/DL (<150)
[2021-02-16] MEDS: LEVOTHYROXINE 25MCG TABLET (0.025MG) PO SCH (05:59)
--- NOTE | 2021-02-16 07:57 | CR ---
CONSULTATION DATE: 02/14/2021 REASON FOR CONSULTATION: Mr. Felton is seen at the request of the emergency room for near respiratory failure with large pleural effusion. HISTORY OF PRESENT ILLNESS: Mr. Felton is a 70-year-old white male who when I came in yesterday to see him, he was hardly able to speak a few words as he was so short of breath even on BiPAP. At that point in time, I could not get a proper history. I proceeded to place a chest tube in his left chest and drain 3000 mL of serosanguineous fluid. This morning, he gives me the history of having become short of breath over the past few months but more acutely over the past 3 or 4 days. He has been coughing up some brown phlegm. He denies fevers, chills or sweats. He also denies chest pain prior to placing the chest tube. He states he has no dysphagia and he states that his weight has remained basically the same. Having taken this history he is a fairly poor historian. He was diagnosed with squamous cell carcinoma of the left upper lobe in the middle of January via a CT-guided needle biopsy. This was moderately differentiated. He was subsequently found to have rib metastases. He was PDL negative with 0 expression, Ross negative without a detectable E-GFR mutation or a BRAF mutation. He was seen by oncology and was thought that his functional status would not permit chemotherapy. The hope was to give him immunotherapy but he is PDL-1 negative. PAST MEDICAL HISTORY: 1. Peripheral vascular disease. 2. Status post aneurysm repair and what sounds to be an aorto and axillary bifemoral bypass and also stenting. The aortic aneurysm was repaired 10 years ago. 3. He states that he is on warfarin for his stenting. 4. Hypothyroidism. 5. COPD. 6. GERD. 7. Restless legs syndrome. PAST SURGICAL HISTORY: 1. See the above vascular surgery. 2. He had a recent ventral hernia repair in the last few months here. 3. He has also had an appendectomy in the remote past. 4. Right metacarpal amputation. HABITS: He smoked 1 to 1-1/2 packs per day of Marlboros, quit in 2003. He denies alcohol use to me but he has noted in the original history and physical to drink two or three beers a day. He denies illicit drugs. ALLERGIES: NSAIDS WITH BRONCHOSPASM. TRAVEL HISTORY: He has been to [place] and [place]. No foreign travel. OCCUPATIONAL HISTORY: Not obtained. He has never been in the . MEDICATIONS AT HOME: 1. Albuterol inhaler q.i.d. p.r.n. shortness of breath. 2. ProAir HFA two puffs q.i.d. p.r.n. shortness of breath. 3. Amlodipine 5 mg q.d. 4. Atorvastatin 10 mg q.day. 5. Trelegy Ellipta 100-62.5-25 one puff q.day. 6. Gabapentin 400 mg b.i.d. 7. Synthroid 25 mg q.day. 8. Lisinopril 10 mg q.day. 9. Metoprolol 12. 5 mg q. Sunday, Sunday and Sunday. 10. Percocet 5-325 q.4 hours p.r.n. pain. 11. Prednisone 10 mg p.o., now doing a taper from 40 mg. 12. Allopurinol 0.5 mg q.day. 13. Coumadin 2 mg q.h.s. with an additional 1 mg on Sunday, Sunday and Sunday. FAMILY HISTORY: By report of the admitting physician, his father had brain and lung cancer. Two paternal uncles had lung cancer and his maternal aunt had bone cancer. REVIEW OF SYSTEMS: Constitutional: Denies fevers, chills, sweats or night sweats. Eyes: Without diplopia and without amaurosis fugax, without prior jaundice. Nose: He has epistaxis when he "picks his nose." Respiratory: See HPI. Cardiac: See HPI. Denies orthopnea, paroxysmal nocturnal dyspnea. Denies ever having had a prior myocardial infarction. He has peripheral vascular disease and he is status post a metacarpal amputation. GI: Denies nausea, vomiting, diarrhea, constipation, melena, hematochezia, abdominal pain. : Without dysuria or hematuria. Neurologic: Without prior seizures, paresthesias or paralyses. Endocrine: With diabetes. He has hypothyroidism. Psychiatric: Without pathological anxiety, depression or psychoses. PHYSICAL EXAMINATION: VITAL SIGNS: Last night prior to placing chest tube, his temperature was 95.6 with a heart rate of 84, in a sinus rhythm, respiratory rate of 24 with use of accessory muscles and on BiPAP of 100% who is 91% saturated. Blood pressure is 115/64. EYES: Pupils equal, round and reactive to light. Extraocular muscles intact. Sclerae nonicteric. NOSE: Without deformity. MOUTH: Not examined at the time of admission examination. Today mucous membranes are pink and moist, commissures without lesions and there is no thrush. NECK: Supple. There is no jugular venous distention, no subcutaneous emphysema. Trachea is midline. I feel no lymphadenopathy. He has 2+ carotid upstrokes. I do not hear bruits through the BiPAP. LUNGS: Last night showed almost no breath sounds on the left side. Today he has equal breath sounds with bilateral wheezing and rhonchi and rales particularly on the right. Percussion is full to diaphragm. CARDIAC: Does not show murmurs, clicks, gallops or rubs. I cannot feel his PMI. S-1, S-2 are normal. Exam is difficult with the BiPAP, however, ABDOMEN: Soft, nontender. Bowel sounds are positive. He has a healed aortic aneurysm resection, repair and a healing ventral hernia repair with a scab at the lower pole of the incision. EXTREMITIES: Show trace pretibial edema, either side. I do not feel any peripheral pulses, either dorsalis pedis or posterior tibials. Neither do I feel femoral pulses. I hear no bruits. There is no bruit over his axillofemoral bypass and there are no pulsations on the right side. Skin today is warm, dry and perfused. Last night, he was cyanotic and mottled. NEURO: Shows II through XII grossly intact. Normal gross motor. Gross sensation intact. Gait of course is not tested. PSYCHIATRIC: Shows him to be awake and alert, not quite accurate in his history. INVESTIGATIONS: Yesterday his white count is 13.7 with hemoglobin and hematocrit of 13.5 and 42.2 respectively with a platelet count of 401. Differential showed 88% neutrophils, 3% lymphocytes and 5% monocytes. There are no immature forms or toxic granulations. His electrolytes showed a sodium of 130 with a potassium of 5.2, a BUN and creatinine of 40 and 0.94 with a total CO2 of 27 after the chest tube insertion. Prior to the chest tube insertion, his lactic acid was 3.9 with a potassium of 5.4 and a BUN and creatinine of 41 and 1.15 with a troponin of 0.49 and a beta natriuretic peptide of 3718 and an albumin of 2.9 and a calcium of 9.2. Corrected, the calcium is going to be in the range of hypercalcemia. His chest x-ray shows complete opacification of the left lung with just the tiniest bit of aeration in the cupula. CT scan confirms a large pleural effusion. He has lung compression of the right lower and most of the upper lobe. There is a subtle mediastinal shift to the right, indicating a tension hydrothorax. His original chest CT done on 12/06/2020 shows a spiculated left upper lobe lesion which measures 4.6 cm x 3 cm. He has multiple emphysematous changes and bulla with his right upper lobe hardly consisting of any parenchyma. IMPRESSION: 1. Respiratory failure. 2. Large pleural effusion. 3. Metastatic squamous cell carcinoma. 4. COPD. 5. Hypothyroidism. 6. Severe peripheral vascular disease. 7. Elevation of troponin. PLAN/DISCUSSION: As noted in the introduction, I immediately placed a chest tube and drained 3000 mL of serosanguineous fluid. That improved his saturations. It looks as though he has increased troponin and may represent a myocardial infarction. It should be noted that the EKG does not show any acute changes.
--- NOTE | 2021-02-16 08:17 | REP ---
INDICATION: CHEST TUBE COMPARISON: 02/15/2021 TECHNIQUE: Portable AP view of the chest FINDINGS: Left-sided chest tube in stable position. There appears to be decreased left effusion. Bilateral opacities and possible left mid lung mass again noted. Visualized portions of the cardiac silhouette are normal/stable. No obvious pneumothorax. IMPRESSION: Slight decrease in left pleural effusion. Continued evidence for underlying pleuroparenchymal changes including possible left mid lung mass. <Electronically signed by Nasir Sun > 02/16/21 0893
--- NOTE | 2021-02-16 08:21 | IPN ---
PROGRESS NOTE DATE: 02/15/2021 SUBJECTIVE: Mr. Felton is doing much better today. He is able to talk in fairly full sentences off his BiPAP, although he is still on BiPAP. While taking a more thorough history this morning, he was able to speak off BiPAP. He is not complaining of chest pain and pain at the chest tube site is being well controlled. His vital signs show a temperature maximum of 98.4 with a heart rate that ranges between 101 and 56 and in sinus rhythm. Respiratory rate of 17-27 without the use of accessory muscles. He was 88-100% saturated on 8 liters of nasal cannula with an FiO2 of 50%. Blood pressure is ranging between 162/57 to 104/52. His intake and output for the past 24 hours has been recorded as 395 in and 3000 out for a negativity of 2605 mL. Today, he has in the last 18 hours taken 1080 in and 1454 out for a negativity of 375 mL. He has put out 575 mL from the chest tube and there is no air leak. Weight today is 102.3 kg compared to 102.3 kg the same as yesterday. OBJECTIVE: On physical examination, he has coarse rhonchi and rales throughout both lungs but most frankly pronounced on the left. Percussion was full to the diaphragm as far as I can tell through his obesity. Cardiac exam is without murmurs, clicks, gallops or rubs. I cannot feel his PMI. S1 and S2 are normal. Abdomen is soft and nontender. Bowel sounds are positive but hypoactive. Extremities show trace pretibial edema; no calf tenderness; no differential swelling of the upper extremities. Skin is warm, dry and perfused; no cyanosis or mottling including that of his knees. Neck is supple. There is no jugular venous distension, no subcutaneous emphysema. Trachea is midline. Mouth shows the mucous membranes to be pink and moist. Lips and gums show no lesions. There is no thrush. Eyes show his pupils are equal and reactive. Extraocular muscles are intact. Sclerae are nonicteric. Neurologic shows II-XII intact. Normal gross motor, gross sensation intact. Gait is not tested. Psychiatric shows him to be awake, alert and conversational; able to answer questions. LABORATORY DATA: His white count today is 12.6, slightly down from 13.7 yesterday. Hemoglobin and hematocrit are 12.9 and 40.3 respectively with a platelet count of 372. Differential shows 85% neutrophils, 5% lymphocytes, 6% monocytes. There are no mature forms of toxic granulations. His electrolytes show a sodium of 131, potassium 4.7. BUN and creatinine are 33 and 0.88 with a glucose of 151 and a calcium of 9.1, and albumin of 2.5. His corrected calcium if 10.3 making him hypercalcemic. AST and ALT are normal. His troponin is now up to 3.02 from 0.49 yesterday. His PT/INR today is 65.8 and 7.55 respectively, essentially unchanged from yesterday. Blood gases this morning show a pH of 7.45, pCO2 of 38, pO2 of 95 on the above nasal cannula. Base excess is 3.6. His chest x-ray shows his lung back to the chest wall. It was done portably. He looks to have an infiltrative atelectatic process in the left lower hemithorax consistent with post-expansion pulmonary edema. The tumor of the left upper lobe can also be seen. His pleural fluid has been returned with a pH of 7.2 with a glucose of 123 and an LDH of 383 with a corresponding LDH of 211. This, therefore, makes it exudative but normoglycemic. His white count is 2500 with 55% of mononuclears and lymphocytes, and 44% polymorphonuclear leukocytes (PMNs). 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 Pathology is pending. Microbiology showed no organisms on Gram stain. IMPRESSION: 1. Large pleural effusion. 2. Respiratory failure, improving. 3. Squamous cell carcinoma widely metastatic. 4. Hypothyroidism. 5. Probable myocardial infarction ([place]). 6. Reexpansion pulmonary edema. 7. Severe peripheral vascular disease. 8. Hypertension. 9. Obesity. 10. Lactic acidosis probably from pump failure secondary to myocardial infarction ([place]) secondary to hypoxia secondary to coronary artery disease. PLAN AND DISCUSSION: I would keep his chest tube on suction today. We will await pathology. I do suspect this will apple turner to be a malignant pleural effusion. He may eventually need a PleurX catheter if the pleural effusion comes back. His chest CT done yesterday without contrast shows extensive coronary artery disease and newly left main coronary artery calcifications along with right main and right coronary artery calcifications. Dr. Romero of cardiology has been consulted.
[2021-02-16] MEDS: MOM 30ML SUSPENSION UDC PO SCH (09:00)
[2021-02-16] MEDS: PANTOPRAZOLE 40MG TAB (PROTONIX) PO SCH (09:56)
[2021-02-16] MEDS: VITAMIN D 1,000 INTERNATIONAL UNITS TABLET PO SCH (09:56)
[2021-02-16] MEDS: DOCUSATE SODIUM 100MG CAPSULE PO SCH ×2 (09:56→20:15)
[2021-02-16] MEDS: MULTIVITAMINS/MINERALS THERAP 1 TAB PO SCH (09:56)
[2021-02-16] MEDS: GABAPENTIN 400MG CAP PO SCH ×2 (09:56→20:17)
[2021-02-16] MEDS: THIAMINE 100 MG TAB PO SCH ×2 (09:57→20:17)
[2021-02-16] MEDS: ATORVASTATIN 10 MG TAB PO SCH (09:57)
[2021-02-16] MEDS: rOPINIRole 0.25 MG TAB(REQUIP) PO SCH (09:57)
[2021-02-16] MEDS: FOLIC ACID 1 MG TAB PO SCH (09:58)
[2021-02-16] MEDS: METOPROLOL TART 25 MG TABLET PO SCH (09:58)
--- NOTE | 2021-02-16 09:58 | CCN ---
CRITICAL CARE NOTE DATE: 02/16/2021 SUBJECTIVE: The patient is seen in the Intensive Care Unit on noninvasive ventilation through the night. He has now been able to remove the mask and with high flow oxygen his saturations are acceptable. OBJECTIVE: VITAL SIGNS: Temperature is 97, pulse is rate is 86, respirations are 23, blood pressure is 115/59. INPUT AND OUTPUT: I and O for the past 24 hours: 1380 in, 1450 out, since midnight 160 in, 660 out. Chest tube has drained just 10 ml since midnight. GENERAL: He is ill-appearing. HEENT: His oral mucosa is pink. NECK: Rushing, supple. No meningismus. HEART: Heart sounds are regular, somewhat distant. LUNGS: Breath sounds are asymmetric, diminished bilaterally with some dullness over the left chest wall. Thoracostomy tube is in good position. There is no air leak appreciated. Expiratory phase of the respiratory cycle is prolonged. ABDOMEN: Soft and obese. EXTREMITIES: Peripheral pulses x4 albeit diminished in the feet. DIAGNOSTIC STUDIES: Chest imaging was reviewed and the edema in the left lung is improved. The lung mass and thoracostomy tube are visualized. His white cell count today is down to 9.8, hemoglobin is 12.2, hematocrit is 37.9, platelet count is 299,000. Differential white cell count shows 79% neutrophils. Electrolytes: Sodium 135, potassium 4.7, chloride 100, CO2 33, BUN 27, creatinine 0.8, glucose 103, calcium is 8.2 on an albumin of 2.4, transaminases are normal. His troponin is down this morning to 0.8 from 3.02. INR is down to 5.79 from 7.5. The primary problem requiring critical attention is acute respiratory failure. We will wean the patient of noninvasive ventilation today to supplemental oxygen. Tension hemothorax. The fluid is malignant, little has drained over the past 24 hours. Thoracic Surgery will determine when the tube can be removed. Reexpansion pulmonary edema. Patient responded to pressor therapy, we will monitor saturations continuously today. 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 Patient has elected to not pursue further resuscitative efforts and has signed orders for DNR/DNI. Advanced obstructive airways disease. The patient has severe disease, is recently well compensated on the current inhaled regimen. Coagulopathy. There is no evidence of active bleeding. His INR is trending down and I would anticipate that it will continue to do so. The patient's condition remains critical. ICU care remains appropriate. I have updated the ICU Care Team with regard to the patient's status and care plans for the day; 68 minutes was spent in the provision of bedside critical care and coordination excluding any time for the performance of procedures.
--- NOTE | 2021-02-16 13:01 | IPN ---
PROGRESS NOTE DATE: 02/16/2021 His vital signs show a maximum temperature of 98.1 with a heart rate that ranges between 58-86 with a respiratory rate of 23-28 without the use of accessory muscles, who is 96%-99% saturated now on 40 liters face mask with a blood pressure that is ranging between 131/64 to 115/55. His intake and output for the past 24 hours have been recorded as 1380 in and 1454 out, for near equality. He has put 579 mL out of the chest tube, and there is no air leak. Weight is pending today. PHYSICAL EXAMINATION: His lung show equal breath sounds on either side now. Percussion note is full to the diaphragm. He has inspiratory rales in the left lower hemothorax. Cardiac exam is without murmurs, clicks, gallops, or rubs. I cannot feel his point of maximal impulse (PMI). S1 and S2 are normal. Abdomen is soft and nontender. Bowel sounds are positive. There is no hepatomegaly. No costovertebral angle (CVA) tenderness. Extremities show no pretibial edema, no calf tenderness, no differential swelling of the upper extremities. Skin is warm, dry, and perfused without cyanosis or mottling, including that of the nailbeds and knees. Neck is supple. There is no jugular venous distention. No subcutaneous emphysema. Trachea is midline. Mouth shows the mucous membranes to be pink and moist. Lips and commissures without lesions. No thrush. Eyes show his pupils to be equal and reactive. Extraocular motion intact. Sclerae anicteric. Neurologic shows II-XII intact. Normal gross motor, gross sensation intact. Gait is not tested. Psychiatric shows him to be awake, alert, and oriented times three with appropriate mood and affect and conversational. His white count today is down to 9.8 with a hemoglobin and hematocrit of 12.2 and 37.9, respectively, essentially unchanged from yesterday. Platelet count is 299, and differential shows 79% neutrophils, 10% lymphocytes, 8% monocytes. There are no immature forms or toxic granulations. His electrolytes are essentially normal with a marginally low sodium of 135. His total CO2 was elevated at 33. BUN and creatinine are 27 and 0.80. Glucose is 103 with a calcium of 8.2 with a corresponding albumin of 2.4. This therefore corrects to less than the threshold for hypercalcemia. AST and ALT are normal. His pathology has been reported back as nonmalignant. We have suspicions that, while there are no malignant cells being shed, it is still secondary to a malignant process. I will obtain an echo to look at his cardiac function. His chest x-ray today done portably shows the left upper lobe lung mass. There is still what looks to be postexpansion atelectasis and pulmonary edema in the left lower hemithorax. IMPRESSION: 1. Large pleural left-sided effusion, probably malignant, drained with a chest tube. 2. Respiratory failure, improving. 3. Squamous cell carcinoma, widely metastatic. 4. Hypothyroidism. 5. Probable myocardial infarction ([place]). 6. Re-expansion pulmonary edema. 7. Severe peripheral vascular disease. 8. Hypertension. 9. Obesity. 10. Lactic acidosis, resolved, secondary to probable pump failure. PLAN AND DISCUSSION: As far as his pleural effusion is concerned, it is tailing off, and hopefully I will be able to remove the chest tubes tomorrow. The question is, is it going to come back, and if it does I will have to place a PleurX catheter. If it comes back without malignant cells, I will undertake an echocardiogram to see if this could at all be explained by heart failure, although this is an exudative process.
[2021-02-16] MEDS: NORCO, ANEXSIA 5/325MG TABLET (HYDROcodone/ACETAMINOPHEN) PO PRN ×2 (15:22→20:17)
--- NOTE | 2021-02-16 16:59 | IPNPDOC ---
Subjective Date Seen The patient was seen on 02/16/21. Subjective Chief Complaint/HPI Shortness of breath better today patient is off BiPAP now using high flow oxygen 6 L Objective Physical Examination General Exam: Positive: Alert, Cooperative, No Acute Distress Eye Exam: Positive: PERRLA, Conjunctiva & lids normal, EOMI; Negative: Sclera icteric ENT Exam: Positive: Atraumatic Neck Exam: Positive: Supple; Negative: thyromegaly Chest Exam: Positive: Diminished (On the left); Negative: Rhonchi, Wheezing, Other Heart Exam: Positive: Rate Normal, Regular Rhythm, Normal S1, Normal S2; Negative: Murmurs, Rubs Telemetry: Positive: No significant arrhythmia Abdomen Exam: Positive: Normal bowel sounds, Soft; Negative: Tenderness, Hepatospenomegaly Extremity Exam: Positive: Other (Right TMA); Negative: Clubbing, Cyanosis, Edema Assessment /Plan Assessment Mr. 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 Morgan, who planned to start palliative pembrolizumab pending the PD-L1 results because his ECOG status was too low for him to tolerate chemo. Earlier on during the day of admission the patient's family called EMS because they noticed that the patient was not breathing. When EMS arrived they noticed that the patient was breathing 4 breaths/min and started ventilating him with bag and mask. Thereafter his O2 sats increased to the 60s and he was put on CPAP. At the time his O2 sats improved to the 80s. The patient's family also reported that the patient's O2 sats had been in the 50s for about 1 week and the patient refused to come to the hospital. In the ED he was found to have massive left-sided pleural effusion with tension hydrothorax. Dr. Nagy had placed a chest tube and drained close to 4 L of bloody pleural fluid. He was admitted for acute on chronic respiratory failure due to tension hydrothorax. Acute on chronic respiratory failure with hypoxia Due to the tension hydrothorax s/p BIPAP, now on high flow oxygen. Status post chest tube drainage Pulmonary consultation appreciated Left-sided tension hydrothorax Hemorrhagic exudative pleural fluid likely malignant Status post chest tube placement on 02/14/2021 Pleural fluid negative for malignancy. Though still this fluid is likely malignant. If reaccumulate's will likely need a Pleurx catheter. Pleural fluid cultures are still in progress. Pain control with oxycodone, Toradol Follow-up with Dr. 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 Advanced COPD, with chronic hypoxic respiratory failure Continue nebulizers and oxygen History of DVT Coumadin on hold due to supratherapeutic INR Coagulopathy secondary to coumadin, no anticoagulation at this point. He is not having any active bleeding with the possible with the exception of hemorrhage pleural fluid Hemoglobin stable Peripheral vascular disease, status post revascularization on lower extremities, most likely aortobifemoral bypass and history of AAA repair. GERD PPI Restless leg syndrome Ropinirole Essential HTN hold Metoprolol, amlodipine & lisinopril because his blood pressure is currently low/IV fluids DLP Atorvastatin RLE DVT Hold Coumadin Hypothyroidism Levothyroxine Obesity complicates care Elevated troponin Due to demand ischemia Lactic acidosis Due to hypoxia and respiratory distress Now resolved Plan/VTE VTE Prophylaxis Ordered?: Yes VS, I&O, 24H, Fishbone Vital Signs/I&O Vital Signs Date Time Temp Pulse Resp B/P (MAP) Pulse Ox O2 Delivery O2 Flow Rate FiO2 02/16/21 16:00 98.2 90 100/55 (70) 92 High Flow Cannula 6.0 02/16/21 15:22 22 02/16/21 12:00 I&O- Last 24 Hours up to 6 AM 02/16/21 06:00 Intake Total 1240 ml Output Total 1340 ml Balance -100 ml Laboratory Data 24H LABS Laboratory Tests 2 02/16/21 04:52: Immature Granulocyte % (Auto) 1.1, Neutrophils (%) (Auto) 79.5H, Lymphocytes (%) (Auto) 10.4L, Monocytes (%) (Auto) 8.7H, Eosinophils (%) (Auto) 0.2, Basophils (%) (Auto) 0.1, Neutrophils # (Auto) 7.8, Lymphocytes # (Auto) 1.0L, Monocytes # (Auto) 0.9H, Eosinophils # (Auto) 0.0, Basophils # (Auto) 0.0, Nucleated Red Blood Cells % (auto) 0.3H, Prothrombin Time 53.4H, Prothromb Time International Ratio 5.79*H, Anion Gap 2L, Glomerular Filtration Rate > 60.0, Calcium Level 8.2L, Phosphorus Level 2.5, Total Bilirubin 0.6, Aspartate Amino Transf (AST/SGOT) 36, Alanine Aminotransferase (ALT/SGPT) 56, Alkaline Phosphatase 55, Lactate Dehydrogenase 193, Total Creatine Kinase 36L, Troponin I 0.80#H, Total Protein 5.2L, Albumin 2.4L, Albumin/Globulin Ratio 0.9, Triglycerides Level 124, Cholesterol Level 95 CBC/BMP Laboratory Tests 02/16/21 04:52 Microbiology Microbiology 02/14/21 Body Fluid Culture, Received Pending 02/14/21 Acid Fast Stain, Received Pending 02/14/21 Mycobacterial Culture, Received Pending 02/14/21 Fungal Smear, Received Pending 02/14/21 Fungal Culture, Received Pending 02/14/21 Gram Stain - Final, Resulted 02/14/21 Anaerobic Culture, Resulted Pending 02/14/21 Blood Culture - Preliminary, Resulted No growth after 24 hours . All specim... 02/14/21 Blood Culture - Preliminary, Resulted No growth after 24 hours . All specim... 02/14/21 Respiratory Virus Panel (PCR) ([facility]) - Final, Complete AYDIN BELLO MD Feb 16, 2021 16:59
--- NOTE | 2021-02-16 18:07 | IPN ---
PROGRESS NOTE DATE: 02/16/2021 SUBJECTIVE: I saw Mr. Felton this morning in the ICU. He had relatively uneventful night even though he spent it with BiPAP on. This morning after I entered, the room, the BiPAP was removed and he was put on oxygen by high flow nasal cannula. He was able to communicate freely and we had a angelito discussion about his condition. He tells me that he is feeling relatively well. Even without BiPAP, he is free of significant dyspnea at rest. He denies any chest discomfort. There is still some soreness at the site of chest tube insertion. PHYSICAL EXAMINATION: Vital signs: Blood pressure 115/59. Heart rate has been in the 70s to 90s, sinus rhythm with occasional ectopy. Saturation is in mid to high 90s on high flow nasal cannula. He is alert and oriented and appropriate. Neck: His JVP does not look so high. There is only fair air movement bilaterally, diminished breath sounds over definitely left and to the lesser extent also right base. Lungs: I do not appreciate any crackles or wheezing. Heart: Reveals somewhat muffled heart sounds but regular rhythm without gallop, rub or murmur. Abdomen: Obese but soft, nontender. Extremities: Free of edema. Peripheral pulses are difficult to palpate. Neurological: He is intact. He is alert, oriented and appropriate and moves all four extremities. LABORATORY DATA: CBC this morning revealed WBC count 9.8, hemoglobin 12.7, hematocrit 37.9 and platelet count 299,000. Basic metabolic panel was normal. Liver function tests were normal. Troponin came down to 0.8. An EKG this morning reveals presence of sinus rhythm with nonspecific repolarization abnormalities that are very subtle, certainly nothing that looks worrisomely ischemic. INR this morning is still high at 5.8. ASSESSMENT AND PLAN: Mr. Felton is a 70-year-old man who has stage IV lung cancer with metastases to skeleton and now has large, likely malignant pleural effusion that has been drained via chest tube. There are underlying severe COPD and peripheral vascular disease. He had a mild troponin elevation that peaked around 3. No ischemic abnormalities on EKG and no chest discomfort suggestive of angina. Most likely type 2 myocardial infarction. Purely supportive management will be continued. I had a long discussion with the patient in presence of his nurse and also with Dr. Bowles. I expressed my strong recommendation that he should consider DNI/DNR and preferential, even comfort measures only. He has very advanced lung cancer and was not felt to be a good candidate for treatment. There is also severe underlying COPD. Consequently his prognosis is poor and I do not believe that aggressive medical management is going to prolong his life in any meaningful way and most likely will bring additional suffering. To my surprise, the patient was very open to this approach. He signed a DNI/DNR form. The introduction of comfort measures or at a minimum, palliative care will be left to primary team. I am going to sign off his care. If you have questions or demands for further assistance, please do not hesitate to contact me. EVIE
[2021-02-17] VITALS (8 sets, daily range): BP systolic 113–136; BP diastolic 56–66
[2021-02-17] MEDS: LEVALBUTEROL 1.25 MG/0.5 ML CONCENTRATE NEB NEB SCH ×4 (02:27→20:00)
[2021-02-17 05:26] LABS: BASO % 0.5 % (0.0-1.0); EOS # 0.1 10^3/uL (0.0-0.5); EOS % 0.8 % (0.0-3.0); HEMATOCRIT 38.2 % (42.0-52.0); HEMOGLOBIN 11.9 g/dl (13.5-17.5); LYMPH # 0.9 10^3/uL (1.5-5.0); LYMPH % 10.2 % (24.0-44.0); MEAN CORPUSCULAR HEMOGLOBIN 27.6 pg (27.0-33.0); MEAN CORPUSCULAR HGB CONC 31.2 g/dl (32.0-36.5); MEAN CORPUSCULAR VOLUME 88.6 fl (80.0-96.0); MONO # 0.8 10^3/uL (0.0-0.8); MONO % 9.8 % (2.0-8.0); NEUTROPHILS # 6.5 10^3/uL (1.5-8.5); NEUTROPHILS % 77.3 % (36.0-66.0); PLATELET COUNT, AUTOMATED 281 10^3/uL (150-450); RED BLOOD COUNT 4.31 10^6/uL (4.30-6.10); WHITE BLOOD COUNT 8.4 10^3/uL (4.0-10.0)
[2021-02-17] MEDS: LEVOTHYROXINE 25MCG TABLET (0.025MG) PO SCH (05:34)
[2021-02-17 05:36] LABS: INR 2.72; PROTHROMBIN TIME 29.5 SECONDS (12.5-14.3)
[2021-02-17 05:54] LABS: ALBUMIN 2.3 GM/DL (3.2-5.2); ALT/SGPT 62 U/L (12-78); BILIRUBIN,TOTAL 0.7 MG/DL (0.2-1.0); BLOOD UREA NITROGEN 26 MG/DL (7-18); CALCIUM LEVEL 8.1 MG/DL (8.8-10.2); CARBON DIOXIDE LEVEL 34 MEQ/L (21-32); CHLORIDE LEVEL 98 MEQ/L (98-107); CHOLESTEROL LEVEL 98 MG/DL (< 200); CPK CREATINE PHOSPHOKINASE 32 U/L (39-308); CREATININE FOR GFR 0.78 MG/DL (0.70-1.30); GLOMERULAR FILTRATION RATE > 60.0 (>42); GLUCOSE, FASTING 99 MG/DL (70-100); LDH LACTATE DEHYDROGENASE 196 U/L (87-241); PHOSPHORUS LEVEL 3.2 MG/DL (2.5-4.9); POTASSIUM SERUM 4.5 MEQ/L (3.5-5.1); SODIUM LEVEL 134 MEQ/L (136-145); TOTAL PROTEIN 5.2 GM/DL (6.4-8.2); TRIGLYCERIDES LEVEL 90 MG/DL (<150)
[2021-02-17] MEDS: NORCO, ANEXSIA 5/325MG TABLET (HYDROcodone/ACETAMINOPHEN) PO PRN ×2 (06:31→11:30)
--- NOTE | 2021-02-17 08:14 | REP ---
INDICATION: CHEST TUBE COMPARISON: 02/16/2021 TECHNIQUE: Portable AP view of the chest FINDINGS: Left-sided chest tube in stable position. Mildly improved aeration is suggested with continued bibasilar atelectasis, left lower lobe consolidation, and possible small residual left pleural effusion. Left hilar adenopathy and left mid lung mass are again noted. No pneumothorax. Mediastinum and cardiac silhouette are incompletely evaluated due to overlying opacities, but appear relatively stable. IMPRESSION: Mildly improved aeration with continued lower lobe atelectasis and airspace disease. Left-sided pleural changes remains stable and suggest small residual pleural effusion and chronic pleural thickening. <Electronically signed by Nasir Sun > 02/17/21 0840
[2021-02-17] MEDS: MOM 30ML SUSPENSION UDC PO SCH (09:00)
[2021-02-17] MEDS: ATORVASTATIN 10 MG TAB PO SCH (09:09)
[2021-02-17] MEDS: MULTIVITAMINS/MINERALS THERAP 1 TAB PO SCH (09:09)
[2021-02-17] MEDS: THIAMINE 100 MG TAB PO SCH ×2 (09:09→20:47)
[2021-02-17] MEDS: VITAMIN D 1,000 INTERNATIONAL UNITS TABLET PO SCH (09:09)
[2021-02-17] MEDS: FOLIC ACID 1 MG TAB PO SCH (09:09)
[2021-02-17] MEDS: rOPINIRole 0.25 MG TAB(REQUIP) PO SCH (09:09)
[2021-02-17] MEDS: GABAPENTIN 400MG CAP PO SCH ×2 (09:09→20:47)
[2021-02-17] MEDS: DOCUSATE SODIUM 100MG CAPSULE PO SCH ×2 (09:09→20:47)
[2021-02-17] MEDS: PANTOPRAZOLE 40MG TAB (PROTONIX) PO SCH (09:09)
--- NOTE | 2021-02-17 09:09 | ECHO ---
ECHOCARDIOGRAM DATE OF PROCEDURE: 02/16/2021 Age: 70 Gender: Male Height: 173 cm Weight: 102 kg REFERRING PHYSICIAN: Dr. Richard Bond PATIENT LOCATION: Room 3202 REASON FOR THE TESTING: Heart failure. MEASUREMENTS: 2D MEASUREMENTS: IVS 0.95 cm LV 4.6 cm LVPW 0.74 cm LA 4.0 cm Aorta 3.7 cm IVC 2.2 cm DOPPLER MEASURMENTS: Peak velocity across the aortic valve 1.1 m/s Peak velocity across the LVOT 0.76 m/s Mitral E 0.74, mitral A 0.75 with a ratio of 1.0 2D COMMENTS: 1. Technically limited study due to poor acoustic window. 2. The left ventricular size is normal as well as left ventricular wall thickness. Low-normal global left ventricular systolic function with the left ventricular ejection fraction (LVEF) estimated between 50-55%. 3. Borderline enlarged left atrium. The right atrium and the right ventricle were not well visualized. 4. The atrial septum appeared to be normal without evidence of defect or shunt. 5. Borderline enlarged aortic root. 6. Just a small pericardial effusion noted, no evidence of cardiac tamponade. 7. The aortic valve, mitral valve, and tricuspid valve appear to be normal. The pulmonic valve and proximal pulmonary artery branches were not well visualized. 8. The inferior vena cava is dilated, central venous pressure is most likely limited. IMPRESSION: 1. Technically limited study due to poor acoustic window. 2. Low-normal global left ventricular systolic function. There are some features of grade 1 left ventricular diastolic dysfunction manifested by abnormal relaxation. 3. Just a small pericardial effusion, no evidence of cardiac tamponade. 4. No significant valvular heart disease detected.
--- NOTE | 2021-02-17 10:38 | CCN ---
CRITICAL CARE NOTE DATE: 02/17/2021 SUBJECTIVE: The patient is seen in the Intensive Care Unit, this is hospital day #4, ICU day #4. He was able to be weaned off of noninvasive ventilation over the past 12 hours and his oxygen saturations are now acceptable on 6 liters of supplemental oxygen via nasal cannula. OBJECTIVE: VITAL SIGNS: Temperature is 98, pulse rate 86, respirations 20, blood pressure 113/56. INTAKE AND OUTPUT: I and O for the past 24 hours 1060 ml in, 1545 out, since midnight 480 in and 530 out. GENERAL: He is ill-appearing. HEENT: Oral mucosa is pink. No stridor. No adenopathy. NECK: His jugular veins are difficult to appreciate, do not appear to be distended. HEART: Heart sounds are regular without appreciable murmur. LUNGS: Breath sounds are asymmetric, diminished on the left with dullness in the left base. There is marked prolongation of the expiratory phase and the chest is hyperinflated. There is no accessory muscle use with conversation. ABDOMEN: Soft and obese. EXTREMITIES: Chronic skin discoloration and chronic edema. DIAGNOSTIC STUDIES: The sodium is 134, potassium is 4.5, chloride 98, CO2 is 34, BUN 26, creatinine 0.78, glucose 99. White cell count is down to 8.4, hemoglobin 11.9, hematocrit 38.2, platelet count is 281,000. Differential: White cell count shows 77% neutrophils. His INR is down this morning to 2.76. Chest imaging is reviewed, formal report is pending. There is a large left lung mass, basilar atelectasis but no apparent persistent effusion appreciable. The primary problem requiring critical attention is hypoxemia, noninvasive positive pressure ventilation has been discontinued. At this point, we will attempt to wean supplemental oxygen for a saturation of 88 to 90% as he is a chronic CO2 retainer. Malignant effusion. Chest tubes have been removed. I suspect that the effusion will reaccumulate and he would be a candidate then for PleurX catheter drainage on an outpatient basis for comfort. Non-small cell carcinoma of the left lung. Patient has been ruled out for a candidate for any treatment at this point due to his performance status. Consideration of the Hospitalist consultation has been discussed. Coagulopathy. The patient's INR is now down in the mid 2's. Coumadin could be reintroduced or await symptoms. The patient's condition remains critical, however he could be downgraded today. I have reviewed the case with Thoracic Surgery. I have discussed the patient's current status with the ICU nursing team and care plans for today have been outlined; 64 minutes was spent in the provision of bedside critical care and coordination excluding any time for the performance of procedures.
--- NOTE | 2021-02-17 12:31 | IPNPDOC ---
Subjective Date Seen The patient was seen on 02/17/21. Subjective Chief Complaint/HPI Patient is feeling relatively well this morning. He is maintaining his saturations with about 4 to 6 L of oxygen. He has been off BiPAP for more than 24 hours. He and his would like to speak with hospice and would like to go home with home hospice set up. Chest tube was removed this morning Objective Physical Examination General Exam: Positive: Alert, Cooperative, No Acute Distress Eye Exam: Positive: PERRLA, Conjunctiva & lids normal, EOMI; Negative: Sclera icteric ENT Exam: Positive: Atraumatic Neck Exam: Positive: Supple; Negative: thyromegaly Chest Exam: Positive: Diminished (On the left); Negative: Rhonchi, Wheezing, Other Heart Exam: Positive: Rate Normal, Regular Rhythm, Normal S1, Normal S2; Negative: Murmurs, Rubs Telemetry: Positive: No significant arrhythmia Abdomen Exam: Positive: Normal bowel sounds, Soft; Negative: Tenderness, Hepatospenomegaly Extremity Exam: Positive: Other (Right TMA); Negative: Clubbing, Cyanosis, Edema Assessment /Plan Assessment Mr. 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 Morgan, who planned to start palliative pembrolizumab pending the PD-L1 results because his ECOG status was too low for him to tolerate chemo. Earlier on during the day of admission the patient's family called EMS because they noticed that the patient was not breathing. When EMS arrived they noticed that the patient was breathing 4 breaths/min and started ventilating him with bag and mask. Thereafter his O2 sats increased to the 60s and he was put on CPAP. At the time his O2 sats improved to the 80s. The patient's family also reported that the patient's O2 sats had been in the 50s for about 1 week and the patient refused to come to the hospital. In the ED he was found to have massive left-sided pleural effusion with tension hydrothorax. Dr. Nagy had placed a chest tube and drained close to 4 L of bloody pleural fluid. He was admitted for acute on chronic respiratory failure due to tension hydrothorax. Acute on chronic respiratory failure with hypoxia Due to the tension hydrothorax s/p BIPAP, now on high flow oxygen. Status post chest tube drainage Pulmonary consultation appreciated Left-sided tension hydrothorax Hemorrhagic exudative pleural fluid likely malignant Status post chest tube placement on 02/14/2021 Pleural fluid negative for malignancy. Though still this fluid is likely malignant. If reaccumulate's will likely need a Pleurx catheter. Pleural fluid cultures negative till date Pain control with oxycodone, Toradol Follow-up with Dr. 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 Patient would like to go home with home hospice Advanced COPD, with chronic hypoxic respiratory failure on home oxygen for more than 5 years Continue nebulizers and oxygen History of DVT Coumadin on hold due to supratherapeutic INR Coagulopathy secondary to coumadin, no anticoagulation at this point. He is not having any active bleeding with the possible with the exception of hemorrhage pleural fluid Hemoglobin stable Peripheral vascular disease, status post revascularization on lower extremities, most likely aortobifemoral bypass and history of AAA repair. GERD PPI Restless leg syndrome Ropinirole Essential HTN hold Metoprolol, amlodipine & lisinopril because his blood pressure is currently low/IV fluids DLP Atorvastatin RLE DVT Hold Coumadin Hypothyroidism Levothyroxine Obesity complicates care Elevated troponin Due to demand ischemia Lactic acidosis Due to hypoxia and respiratory distress Now resolved Disposition ; home with hospice Plan/VTE VTE Prophylaxis Ordered?: Yes VS, I&O, 24H, Fishbone Vital Signs/I&O Vital Signs Date Time Temp Pulse Resp B/P (MAP) Pulse Ox O2 Delivery O2 Flow Rate FiO2 02/17/21 11:30 18 Nasal Cannula 4.0 02/17/21 06:31 94 02/17/21 06:25 86 113/56 02/17/21 04:01 98.4 02/16/21 20:00 95 I&O- Last 24 Hours up to 6 AM 02/17/21 06:00 Intake Total 1200 ml Output Total 900 ml Balance 300 ml Laboratory Data 24H LABS Laboratory Tests 2 02/17/21 04:52: Immature Granulocyte % (Auto) 1.4, Neutrophils (%) (Auto) 77.3H, Lymphocytes (%) (Auto) 10.2L, Monocytes (%) (Auto) 9.8H, Eosinophils (%) (Auto) 0.8, Basophils (%) (Auto) 0.5, Neutrophils # (Auto) 6.5, Lymphocytes # (Auto) 0.9L, Monocytes # (Auto) 0.8, Eosinophils # (Auto) 0.1, Basophils # (Auto) 0.0, Nucleated Red Blood Cells % (auto) 0.0, Prothrombin Time 29.5H, Prothromb Time International Ratio 2.72, Anion Gap 2L, Glomerular Filtration Rate > 60.0, Calcium Level 8.1L, Phosphorus Level 3.2#, Total Bilirubin 0.7, Aspartate Amino Transf (AST/SGOT) 31, Alanine Aminotransferase (ALT/SGPT) 62, Alkaline Phosphatase 62, Lactate Dehydrogenase 196, Total Creatine Kinase 32L, Total Protein 5.2L, Albumin 2.3L, Albumin/Globulin Ratio 0.8, Triglycerides Level 90, Cholesterol Level 98 CBC/BMP Laboratory Tests 02/17/21 04:52 Microbiology Microbiology 02/14/21 Body Fluid Culture - Final, Complete 02/14/21 Acid Fast Stain, Received Pending 02/14/21 Mycobacterial Culture, Received Pending 02/14/21 Fungal Smear, Received Pending 02/14/21 Fungal Culture, Received Pending 02/14/21 Gram Stain - Final, Complete 02/14/21 Anaerobic Culture - Final, Complete 02/14/21 Blood Culture - Preliminary, Resulted No Growth after 48 hours. All Specime... 02/14/21 Blood Culture - Preliminary, Resulted No Growth after 48 hours. All Specime... 02/14/21 Respiratory Virus Panel (PCR) ([facility]) - Final, Complete AYDIN BELLO MD Feb 17, 2021 12:31
[2021-02-17] MEDS: PERCOCET 5MG/325MG TAB PO PRN (20:47)
[2021-02-18] VITALS: BP 143/72
[2021-02-18] MEDS: LEVALBUTEROL 1.25 MG/0.5 ML CONCENTRATE NEB NEB SCH ×2 (01:54→07:08)
[2021-02-18 04:00] VITALS: BP 109/67
[2021-02-18] MEDS: LEVOTHYROXINE 25MCG TABLET (0.025MG) PO SCH (05:17)
[2021-02-18] MEDS: PERCOCET 5MG/325MG TAB PO PRN ×2 (05:18→10:32)
[2021-02-18 05:39] LABS: BASO % 0.2 % (0.0-1.0); EOS # 0.1 10^3/uL (0.0-0.5); EOS % 1.3 % (0.0-3.0); HEMATOCRIT 37.7 % (42.0-52.0); LYMPH # 0.9 10^3/uL (1.5-5.0); LYMPH % 9.6 % (24.0-44.0); MEAN CORPUSCULAR HEMOGLOBIN 28.2 pg (27.0-33.0); MEAN CORPUSCULAR HGB CONC 31.8 g/dl (32.0-36.5); MEAN CORPUSCULAR VOLUME 88.7 fl (80.0-96.0); MONO # 0.8 10^3/uL (0.0-0.8); MONO % 7.9 % (2.0-8.0); NEUTROPHILS # 7.8 10^3/uL (1.5-8.5); NEUTROPHILS % 79.8 % (36.0-66.0); PLATELET COUNT, AUTOMATED 265 10^3/uL (150-450); RED BLOOD COUNT 4.25 10^6/uL (4.30-6.10); WHITE BLOOD COUNT 9.8 10^3/uL (4.0-10.0)
[2021-02-18 05:49] LABS: INR 1.31; PROTHROMBIN TIME 16.6 SECONDS (12.5-14.3)
[2021-02-18 06:09] LABS: BLOOD UREA NITROGEN 21 MG/DL (7-18); CALCIUM LEVEL 8.2 MG/DL (8.8-10.2); CARBON DIOXIDE LEVEL 33 MEQ/L (21-32); CHLORIDE LEVEL 98 MEQ/L (98-107); CREATININE FOR GFR 0.74 MG/DL (0.70-1.30); GLOMERULAR FILTRATION RATE > 60.0 (>42); GLUCOSE, FASTING 98 MG/DL (70-100); POTASSIUM SERUM 4.6 MEQ/L (3.5-5.1); SODIUM LEVEL 133 MEQ/L (136-145)
[2021-02-18] MEDS ORDERED: PILL CUTTER 1 EACH XX PRN (07:55)
[2021-02-18 08:00] VITALS: BP 94/56
--- NOTE | 2021-02-18 08:13 | REP ---
INDICATION: CHEST TUBE COMPARISON: 02/17/2021 TECHNIQUE: Portable AP view of the chest FINDINGS: Chest tube has been removed. Bilateral pleuroparenchymal changes (left greater than right) remain essentially stable. No obvious new acute process or progression of findings. No pneumothorax. IMPRESSION: Left chest tube has been removed. Pleuroparenchymal changes remains stable. No new acute process or pneumothorax identified. <Electronically signed by Nasir Sun > 02/18/21 0809
[2021-02-18] MEDS: rOPINIRole 0.25 MG TAB(REQUIP) PO SCH (08:43)
[2021-02-18] MEDS: VITAMIN D 1,000 INTERNATIONAL UNITS TABLET PO SCH (08:44)
[2021-02-18] MEDS: FOLIC ACID 1 MG TAB PO SCH (08:44)
[2021-02-18] MEDS: GABAPENTIN 400MG CAP PO SCH (08:44)
[2021-02-18] MEDS: ATORVASTATIN 10 MG TAB PO SCH (08:44)
[2021-02-18] MEDS: PANTOPRAZOLE 40MG TAB (PROTONIX) PO SCH (08:44)
[2021-02-18] MEDS: DOCUSATE SODIUM 100MG CAPSULE PO SCH (08:45)
[2021-02-18] MEDS: MOM 30ML SUSPENSION UDC PO SCH (08:45)
[2021-02-18] MEDS: MULTIVITAMINS/MINERALS THERAP 1 TAB PO SCH (08:49)
[2021-02-18 08:51] VITALS: BP 94/56
[2021-02-18] MEDS: METOPROLOL TART 25 MG TABLET PO SCH (08:51)
[2021-02-18] MEDS ORDERED: PANT40TA29 PO (09:59)
[2021-02-18] MEDS ORDERED: ATIV1TAB10 PO (09:59)
[2021-02-18] MEDS ORDERED: JANT3TAB PO (09:59)
[2021-02-18] MEDS ORDERED: HYOS125TA PO (09:59)
[2021-02-18] MEDS ORDERED: MORP20SO3 PO (09:59)
--- NOTE | 2021-02-18 10:16 | DS.PDOC ---
Discharge Summary General Date of Admission Feb 14, 2021 at 18:56 Date of Discharge 02/18/21 Discharge Summary PROCEDURES PERFORMED DURING STAY: [None]. 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 HOSPITAL COURSE: Mr. 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 Morgan, who planned to start palliative pembrolizumab pending the PD-L1 results because his ECOG status was too low for him to tolerate chemo. Earlier on during the day of admission the patient's family called EMS because they noticed that the patient was not breathing. When EMS arrived they noticed that the patient was breathing 4 breaths/min and started ventilating him with bag and mask. Thereafter his O2 sats increased to the 60s and he was put on CPAP. At the time his O2 sats improved to the 80s. The patient's family also reported that the patient's O2 sats had been in the 50s for about 1 week and the patient refused to come to the hospital. In the ED he was found to have massive left-sided pleural effusion with tension hydrothorax. Dr. Nagy had placed a chest tube and drained close to 4 L of bloody pleural fluid. He was admitted for acute on chronic respiratory failure due to tension hydrothorax. Patient had chest tube drainage of left pleural fluid with removal of over 3 L with improvement in his SOB. There is a possibility this will reaccumulate as the fluid is most likely malignant. Patient is not a candidate for any kind of treatment for his lung cancer. Raymonolivia opted to be DNR/DNI and to transition to Hospice and go home with home hospice set up. Acute on chronic respiratory failure with hypoxia and hypercarbia Due to the tension hydrothorax s/p BIPAP. Status post chest tube drainage Left-sided tension hydrothorax Hemorrhagic exudative pleural fluid likely malignant Status post chest tube placement on 02/14/2021 Pleural fluid negative for malignancy. Though still this fluid is likely malignant. If reaccumulate's will likely need a Pleurx catheter. Pleural fluid cultures negative till date CXR prn if SOB increases as pritesh be reaccumulating fluids. 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 home with home hospice Advanced COPD, with chronic hypoxic respiratory failure on home oxygen for more than 5 years Continue home inhalers, nebulizers and oxygen History of right leg DVT resume coumadin Coagulopathy secondary to coumadin, now resolved will restart Coumadin at lower dose of 1.5 mg daily. Peripheral vascular disease, status post revascularization on lower extremities, most likely aortobifemoral bypass and history of AAA repair. GERD PPI Restless leg syndrome Ropinirole HTN resolved, stopped amlodipine and lisinopril. Will only continue metoprolol 3 times a week. DLP Atorvastatin Hypothyroidism Levothyroxine Obesity complicates care Elevated troponin/ type 2 AMI Due to demand ischemia Lactic acidosis Due to hypoxia and respiratory distress Now resolved DISCHARGE MEDICATIONS: Please see below. ALLERGIES: Please see below. PHYSICAL EXAMINATION ON DISCHARGE: VITAL SIGNS: Please see below. General Exam: Positive: Alert, Cooperative, No Acute Distress Eye Exam: Positive: PERRLA, Conjunctiva & lids normal, EOMI; Negative: Sclera icteric ENT Exam: Positive: Atraumatic Neck Exam: Positive: Supple; Negative: thyromegaly Chest Exam: Positive: Diminished (On the left); Negative: Rhonchi, Wheezing, Other Heart Exam: Positive: Rate Normal, Regular Rhythm, Normal S1, Normal S2; Negative: Murmurs, Rubs Telemetry: Positive: No significant arrhythmia Abdomen Exam: Positive: Normal bowel sounds, Soft; Negative: Tenderness, Hepatosplenomegaly Extremity Exam: Positive: Other (Right TMA); Negative: Clubbing, Cyanosis, Edema LABORATORY DATA: Please see below. ACTIVITY: [As tolerated]. DIET: As tolerated DISCHARGE PLAN: Home with Hospice DISCHARGE INSTRUCTIONS: Follow up with Home hospice. DISCHARGE CONDITION: [Stable]. TIME SPENT ON DISCHARGE: 35 minutes. Vital Signs/I&Os Vital Signs Date Time Temp Pulse Resp B/P (MAP) Pulse Ox O2 Delivery O2 Flow Rate FiO2 02/18/21 08:51 95 94/56 02/18/21 08:00 98.7 17 93 High Flow Cannula 4.0 02/16/21 20:00 95 I&O- Last 24 Hours up to 6 AM 02/18/21 06:00 Intake Total 480 ml Output Total 2780 ml Balance -2300 ml Laboratory Data Labs 24H Laboratory Tests 2 02/18/21 05:22: Immature Granulocyte % (Auto) 1.2, Neutrophils (%) (Auto) 79.8H, Lymphocytes (%) (Auto) 9.6L, Monocytes (%) (Auto) 7.9, Eosinophils (%) (Auto) 1.3, Basophils (%) (Auto) 0.2, Neutrophils # (Auto) 7.8, Lymphocytes # (Auto) 0.9L, Monocytes # (Auto) 0.8, Eosinophils # (Auto) 0.1, Basophils # (Auto) 0.0, Nucleated Red Blood Cells % (auto) 0.0, Prothrombin Time 16.6H, Prothromb Time International Ratio 1.31, Anion Gap 2L, Glomerular Filtration Rate > 60.0, Calcium Level 8.2L CBC/BMP Laboratory Tests 02/18/21 05:22 Microbiology Microbiology 02/14/21 Body Fluid Culture - Final, Complete 02/14/21 Acid Fast Stain, Received Pending 02/14/21 Mycobacterial Culture, Received Pending 02/14/21 Fungal Smear, Received Pending 02/14/21 Fungal Culture, Received Pending 02/14/21 Gram Stain - Final, Complete 02/14/21 Anaerobic Culture - Final, Complete 02/14/21 Blood Culture - Preliminary, Resulted No Growth after 72 hours. All specime... 02/14/21 Blood Culture - Preliminary, Resulted No Growth after 72 hours. All specime... 02/14/21 Respiratory Virus Panel (PCR) (NEPTALI) - Final, Complete Discharge Medications Scheduled Amlodipine Besylate (Amlodipine Besylate) 5 Mg Tablet, 5 MG PO DAILY, (Reported) Atorvastatin Calcium (Atorvastatin Calcium) 10 Mg Tablet, 10 MG PO DAILY, (Reported) Cholecalciferol (Vitamin D3) (Vitamin D3) 1,000 Unit Tablet, 1,000 UNITS PO ANTHONY Y, (Reported) Docusate Sodium (Docusate Sodium) 100 Mg Capsule, 100 MG PO BID, (Reported) Fluticasone/Umeclidin/Vilanter (Trelegy Ellipta 100-62.5-25) 1 Each Blst.w.dev, 1 PUFF INH DAILY, (Reported) Gabapentin (Gabapentin) 400 Mg Capsule, 400 MG PO BID, (Reported) Levothyroxine Sodium (Levothyroxine Sodium) 25 Mcg Tablet, 25 MCG PO DAILY, (Reported) Lisinopril (Lisinopril) 10 Mg Tablet, 10 MG PO DAILY, (Reported) Metoprolol Tartrate (Metoprolol Tartrate) 25 Mg Tablet, 12.5 MG PO 3XW, (Reporte d) SUNDAY, SUNDAY AND SUNDAY Pantoprazole Sodium (Pantoprazole Sodium) 40 Mg Tablet.dr, 40 MG PO DAILY Prednisone (Prednisone) 10 Mg Tablet, 10 MG PO TAPER, (Reported) 40MG FOR 4 DAYS, 30MG FOR 4 DAYS, 20MG FOR 4 DAYS, THEN 10MG DAILY; LAST DOSE WAS FIRST OF 30MG DOSE Ropinirole HCl (Ropinirole HCl) 0.5 Mg Tablet, 0.5 MG PO DAILY, (Reported) Warfarin Sodium (Warfarin Sodium) 2 Mg Tablet, 2 MG PO QHS, (Reported) Warfarin Sodium (Warfarin Sodium) 1 Mg Tablet, 1 MG PO 3XW, (Reported) SUNDAY, SUNDAY AND SUNDAY AT QHS: TAKES WITH 2MG FOR 3MG TOTAL Warfarin Sodium (Jantoven) 3 Mg Tablet, 1.5 MG PO DAILY@17 Scheduled PRN Albuterol Sulf (Albuterol Sulfate) 2.5 Mg/3 Ml Vial.neb, 2.5 MG INH QID PRN for SHORTNESS OF BREATH, (Reported) Albuterol Sulfate (Proair Hfa) 8.5 Gm Hfa.aer.ad, 2 PUFF INH QID PRN for SHORTNESS OF BREATH, (Reported) Hyoscyamine Sulfate (Hyoscyamine Sulfate) 0.125 Mg Tab.subl, 0.125 MG PO Q4HP PRN for TERMINAL SECRETIONS Use sublingually if unable to swallow Lorazepam (Ativan) 0.5 Mg Tablet, 0.5 MG PO Q4HP PRN for ANXIETY/AGITATION Use sublingually if unable to swallow Morphine Sulfate (Morphine Sulfate) 100 Mg/5 Ml Solution, 0.25-1 ML PO Q2H PRN for PAIN OR DYSPNEA Use sublingually if unable to swallow Oxycodone HCl/Acetaminophen (Oxycodone-Acetaminophen 5-325) 1 Each Tablet, 1 TAB PO Q4H PRN for PAIN LEVEL 6-10, (Reported) Allergies Coded Allergies: NSAIDS (Non-Steroidal Anti-Inflamma (Verified Allergy, Severe, airway s welling, 02/15/21) AYDIN BELLO MD Feb 18, 2021 10:15
--- NOTE | 2021-02-18 12:44 | IPN ---
PROGRESS NOTE DATE: 02/17/2021 Mr. Felton is feeling much better today, although he is still short of breath. He was sitting up in a chair until I took the chest tube out, at which time he got back into bed, and he was relatively short of breath back in bed. He feels better sitting up. His pain is being well controlled. His vital signs show a maximum temperature of 98.4 with a heart rate that ranges between 86-93 and a respiratory rate of 18-28 without the use of accessory muscles, who is 90%-94% saturated on 4-6 liters nasal cannula and whose blood pressure is ranging between 120/65 to 113/56. His intake and output for the past 24 hours have been recorded as 1060 in and 1545 out, for a negativity of 485 mL. He has only put 45 mL out of the chest tube, and there is no air leak. Weight is pending today. PHYSICAL EXAMINATION: He has decreased breath sounds in the left lower hemithorax with a dull percussion note, as far as I can tell through his obesity. I do hear some faint expiratory wheezing at the very end of expiration. Cardiac exam is without murmurs, clicks, gallops, or rubs. I cannot feel his point of maximal impulse (PMI). S1 and S2 are normal. Abdomen is soft and nontender. Bowel sounds are positive. There is no hepatomegaly that I can appreciated. There is no costovertebral angle (CVA) tenderness. Extremities show trace pretibial edema, no calf tenderness, no differential swelling of the upper extremities. Skin is warm, dry, and perfused without cyanosis or mottling, including that of the nailbeds and knees. Neck is supple. There is no jugular venous distention. No subcutaneous emphysema. Trachea is midline. Mouth shows the mucous membranes to be pink and moist. Lips and commissures without lesions. No thrush. Eyes show his pupils to be equal and reactive. Extraocular motion intact. Sclerae anicteric. Neurologic shows II-XII intact. Normal gross motor, gross sensation intact. Gait is not tested. Psychiatric shows him to be awake, alert, and oriented times three with appropriate mood and affect and conversational. His white count is 8.4 with a hemoglobin and hematocrit of 11.9 and 38.2, essentially unchanged from yesterday, with a platelet count of 281 and stable. Differential shows 77% neutrophils, 10% lymphocytes, and 9% monocytes. There are no immature forms or toxic granulations. His electrolytes today show a BUN and creatinine of 26 and 0.78 with an elevated total CO2 to 34. Calcium is 8.1 with a corresponding albumin of 2.3. His PT/INR today is now more normalized to 29.5 and 2.72. His chest x-ray today shows his right lung fully expanded to the chest wall. There looks to be some residual atelectasis and/or postexpansion edema in the left lower lobe. His tumor can clearly be seen. IMPRESSION: 1. Large left-sided pleural effusion, probably malignant, drained with a chest tube. 2. Respiratory failure, improving. 3. Squamous cell carcinoma, widely metastatic. 4. Hypothyroidism. 5. Possible myocardial infarction. 6. Re-expansion pulmonary edema. 7. Severe peripheral vascular disease. 8. Hypertension. 9. Obesity. 10. Lactic acidosis, resolved. PLAN AND DISCUSSION: I will go ahead and remove his chest tubes today, as he is not draining. I have a sinking feeling that the effusion is going to recur, as it is probably malignant, even though the pathology does not show malignant cells. At that point in time, I could be re-consulted and will consider placing a PleurX catheter. His care will be palliative, as oncology is not going to offer him systemic therapy secondary to his functional status.
[2021-02-18] MEDS ORDERED: WARFARIN SOD 3MG TAB PO SCH (17:00)
--- NOTE | 2021-02-18 22:18 | ECGEPIP ---
[facility] Test Date: 2021-02-16 Pat Name: MIC MCNAMARA Department: Room: [place] [address] Gender: Male Cellophaner: ANTOINE : 1950 Requested By: Demar Romero Order Number: [id number] Reading MD: Dylon Rodriguez Measurements Intervals Snyder Rate: 79 P: 107 IN: 130 QRS: 46 QRSD: 80 T: -9 QT: 378 QTc: 433 Interpretive Statements Normal sinus rhythm Nonspecific ST-T wave abnormalities No significant change when compared to prior tracing of February 15, 2021 Electronically Signed on 02-18-2021 22:17:58 EDT by Dylon Rodriguez
== END 2021-02-18 11:48 | disposition home or self-care (01) | DRG 180 ==
LOC: M ED 18:55 → M ED INP 18:56 → M ICU 22:20 → M PCU 02-17 16:25
PROVIDERS: ADMIT Internal Medicine; ATTEND Internal Medicine Nephrology
PROC: 0W9830Z Drainage of Chest Wall with Drainage Device, Percutaneous Approach (ICD-10-PCS; principal; 2021-02-14)
DX: C34.92 Malignant neoplasm of unspecified part of left bronchus or lung (principal); J96.21 Acute and chronic respiratory failure with hypoxia; I21.A1 Myocardial infarction type 2; J81.0 Acute pulmonary edema; I82.4Z1 Acute embolism and thrombosis of unspecified deep veins of right distal lower extremity; J91.0 Malignant pleural effusion; E87.2 Acidosis; E87.1 Hypo-osmolality and hyponatremia; C79.51 Secondary malignant neoplasm of bone; D68.4 Acquired coagulation factor deficiency; C41.3 Malignant neoplasm of ribs, sternum and clavicle; Z66 Do not resuscitate; I10 Essential (primary) hypertension; E78.5 Hyperlipidemia, unspecified; E03.9 Hypothyroidism, unspecified; J44.9 Chronic obstructive pulmonary disease, unspecified; Z99.81 Dependence on supplemental oxygen; K21.9 Gastro-esophageal reflux disease without esophagitis; K43.9 Ventral hernia without obstruction or gangrene; G25.81 Restless legs syndrome; Z95.1 Presence of aortocoronary bypass graft; Z87.891 Personal history of nicotine dependence; R77.8 Other specified abnormalities of plasma proteins; E87.5 Hyperkalemia; R74.01 Elevation of levels of liver transaminase levels; E66.9 Obesity, unspecified; Z68.34 Body mass index [BMI] 34.0-34.9, adult; Z79.01 Long term (current) use of anticoagulants; Z79.899 Other long term (current) drug therapy; Z88.6 Allergy status to analgesic agent; Z20.822 Contact with and (suspected) exposure to COVID-19